=== PATIENT | male | born 1955 | race Two or more races ===

== ENCOUNTER 2023-03-17 18:07 | Inpatient (IN) | payer MEDICAID, OTHER ==
[~2023-03-17] VITALS: Ht 162.6 cm; Wt 76.0 kg
[2023-03-17 19:21] LABS: Eosinophils % (auto) 0.6 % (0.0-7.0); Lymphocytes # (auto) 0.6 10 ^3/uL (0.4-5.4)
[2023-03-17 19:23] LABS: Basophils # (auto) 0.1 10 ^3/uL (0-0.2); Basophils % (auto) 0.5 % (0.0-2.0); Eosinophils # (auto) 0.1 10 ^3/uL (0-0.8); Hemoglobin 8.5 g/dL (13.5-17.5); Lymphocytes % (auto) 2.3 % (10.0-50.0); Mean Corpuscular Hemoglobin 27.9 pg (28.0-32.0); Mean Corpuscular Hgb Conc. 31.3 g/dL (32.0-36.0); Mean Corpuscular Volume 89.2 fL (80.0-100.0); Monocytes # (auto) 1.6 10 ^3/uL (0-1.3); Monocytes % (auto) 6.6 % (0.0-12.0); Neutrophils # (auto) 21.9 10 ^3/uL (1.6-8.6); Red Blood Cells 3.03 10^6/uL (4.5-5.90); White Blood Cell 24.3 10^3/uL (4.4-10.8)
[2023-03-17 19:30] VITALS: PULSE 73; RESP 22; O2SAT 98
[2023-03-17 19:44] LABS: Alanine Aminotransferase 52 U/L (7-40); Albumin 2.9 g/dL (3.2-4.8); Alkaline Phosphatase 280 U/L (46-116); Anion Gap 7.9 (5-15); Aspartate Aminotransferase 28 U/L (13-40); Bilirubin, Total 0.5 mg/dL (0.2-1.0); Blood Urea Nitrogen 59 mg/dL (9-23); Calcium 7.9 mg/dL (8.7-10.4); Carbon Dioxide 24.1 mmol/L (20-30); Chloride 97 mmol/L (98-107); Glucose 278 mg/dL (74-106); Sodium 129 mmol/L (136-145); Total Protein 6.2 g/dL (5.7-8.2)
[2023-03-17 19:57] LABS: Potassium 5.8 mmol/L (3.5-5.1)
[2023-03-17] MEDS ORDERED: PIPERACILLIN-TAZOB 3.375GM 100 ML IV ONE (20:00)
[2023-03-17] MEDS ORDERED: VANCOMYCIN 1GM/250ML 250 ML IV ONE (20:00)
[2023-03-17] MEDS ORDERED: SODIUM CHLORIDE 0.9% 1,000 ML IV ONE (20:45)
[2023-03-17] MEDS ORDERED: DEXTROSE (50%) 50ML SYRG IV ONE (21:00)
[2023-03-17] MEDS ORDERED: InsuLIN REG 1unit/0.01ml Soln (100units/ml) IV ONE (21:00)
[2023-03-17 22:33] LABS: Urine Amorphous Crystal FEW /hpf (None Seen); Urine Bacteria MANY /hpf (None Seen); Urine Blood 1+ /uL (Negative); Urine Clarity CLOUDY (Clear); Urine Color Yellow (Yellow); Urine Mucus FEW (None Seen); Urine Protein, UAD 3+ (Negative); Urine Specific Gravity 1.019 (1.001-1.035); Urine Sperm PRESENT /hpf (None Seen); Urine Urobilinogen Normal (Negative); Urine WBC 107 /hpf (0 - 3); Urine pH 5.5 (5.0-8.0)
[2023-03-17 22:58] LABS: Erythrocyte Sedimentation Rate 116 mm/hr (0-20)
[2023-03-18] MEDS ORDERED: NITROGLYCERIN 0.4 MG SL TAB SL PRN (02:15)
[2023-03-18] MEDS ORDERED: MORPHINE SULFATE INJ 2 MG/ml SYRG IV PRN ×2 (02:15→16:00)
[2023-03-18] MEDS ORDERED: DEXTROSE (50%) 50ML SYRG IV PRN ×2 (02:15→16:00)
[2023-03-18 02:37] LABS: Chloride 98 mmol/L (98-107); Potassium 5.3 mmol/L (3.5-5.1); Sodium 128 mmol/L (136-145)
[2023-03-18 02:38] LABS: Anion Gap 6.3 (5-15); Carbon Dioxide 23.7 mmol/L (20-30)
[2023-03-18 02:39] LABS: Calcium 8.2 mg/dL (8.7-10.4)
[2023-03-18 02:43] LABS: Glucose 248 mg/dL (74-106)
[2023-03-18 02:44] LABS: BUN/Creatinine Ratio 8.9 (10.0-20.0)
[2023-03-18 02:46] LABS: Blood Urea Nitrogen 44 mg/dL (9-23)
[2023-03-18] MEDS: ACCU-CHEK COMFORT CURVE STRIP VI SCH ×4 (06:04→22:30)
[2023-03-18] MEDS: InsuLIN REG 1unit/0.01ml Soln (100units/ml) SC SCH ×4 (06:07→22:49)
[2023-03-18] MEDS: LEVOTHYROXINE SODIUM 50 MCG TAB PO SCH (06:07)
[2023-03-18 07:45] VITALS: PULSE 62; RESP 11; O2SAT 98
[2023-03-18] MEDS ORDERED: SODIUM CHL 0.9% 1000 ML BAG XX ONE (08:15)
[2023-03-18 09:56] LABS: INR 1.24 (0.9-1.15); Prothrombin Time 12.8 sec (9.3-11.8)
[2023-03-18 09:58] LABS: Partial Thromboplastin Time > 139.0 SEC (24.5-34.5)
[2023-03-18] MEDS: CARVEDILOL 3.125 MG TAB PO SCH ×2 (10:00→22:00)
[2023-03-18] MEDS: CLOPIDOGREL BISULFATE 75 MG TAB PO SCH (10:00)
[2023-03-18] MEDS: PANTOPRAZOLE 40 MG TAB PO SCH (10:00)
[2023-03-18] MEDS ORDERED: FUROSEMIDE 40 MG TAB PO SCH (10:00)
[2023-03-18] MEDS: cefTRIAXone 1GM/50ML D5W 50 ML IV SCH (10:05)
[2023-03-18 11:17] LABS: Hepatitis B Surface Antigen Negative (Negative)
[2023-03-18 11:38] LABS: Hepatitis A Ab IgM Negative
[2023-03-18 11:39] LABS: Hepatitis B Core IgM Negative; Hepatitis C Antibody Negative (Negative)
[2023-03-18 12:28] LABS: Basophils # (auto) 0.1 10 ^3/uL (0-0.2); Eosinophils # (auto) 0.3 10 ^3/uL (0-0.8); Lymphocytes # (auto) 0.8 10 ^3/uL (0.4-5.4)
[2023-03-18 12:31] LABS: Basophils % (auto) 0.5 % (0.0-2.0); Eosinophils % (auto) 1.4 % (0.0-7.0); Hematocrit 25.3 % (41.0-53.0); Hemoglobin 7.9 g/dL (13.5-17.5); Lymphocytes % (auto) 3.6 % (10.0-50.0); Mean Corpuscular Hemoglobin 27.8 pg (28.0-32.0); Mean Corpuscular Volume 89.5 fL (80.0-100.0); Monocytes # (auto) 1.5 10 ^3/uL (0-1.3); Neutrophils # (auto) 19.2 10 ^3/uL (1.6-8.6); Neutrophils % (auto) 87.5 % (37.0-80.0); Red Blood Cells 2.83 10^6/uL (4.5-5.90)
[2023-03-18 15:41] LABS: INR 1.19 (0.9-1.15); Partial Thromboplastin Time 35.7 SEC (24.5-34.5); Prothrombin Time 12.4 sec (9.3-11.8)
[2023-03-18] MEDS: DAPTOmycin 500 MG in SODIUM CHL 0.9% 50 ML IV SCH (16:48)
[2023-03-18] MEDS: ACETAMINOPHEN 325 MG TAB PO PRN (19:53)
[2023-03-18 19:56] VITALS: PULSE 78; RESP 15; O2SAT 94
[2023-03-18] MEDS ORDERED: EPOETIN ALFA-EPBX 10,000 UNIT/1ML VIAL SC ONE (21:00)
[2023-03-18] MEDS ORDERED: ATORVASTATIN 20 MG TAB PO SCH (22:00)
[2023-03-18] MEDS: ATORVASTATIN 20 MG TAB PO SCH (22:29)
[2023-03-18 23:12] LABS: Body Fluid White Blood Cells 5750 CUMM (0-200)
[2023-03-18 23:13] LABS: Body Fluid Polymorphonuclear 97 % (0-25); Body Fluid Red Blood Cells 1250 CUMM (0-2000)
[2023-03-19] MEDS ORDERED: ALBUMIN 5% 250 ML IV ONE (06:00)
[2023-03-19 06:12] LABS: Basophils # (auto) 0.1 10 ^3/uL (0-0.2); Basophils % (auto) 0.9 % (0.0-2.0); Eosinophils # (auto) 0.4 10 ^3/uL (0-0.8); Eosinophils % (auto) 2.4 % (0.0-7.0); Hematocrit 25.1 % (41.0-53.0); Hemoglobin 7.9 g/dL (13.5-17.5); Lymphocytes # (auto) 0.8 10 ^3/uL (0.4-5.4); Lymphocytes % (auto) 4.9 % (10.0-50.0); Mean Corpuscular Hemoglobin 28.2 pg (28.0-32.0); Mean Corpuscular Hgb Conc. 31.6 g/dL (32.0-36.0); Mean Corpuscular Volume 89.5 fL (80.0-100.0); Monocytes # (auto) 1.2 10 ^3/uL (0-1.3); Monocytes % (auto) 7.9 % (0.0-12.0); Neutrophils # (auto) 13.1 10 ^3/uL (1.6-8.6); Neutrophils % (auto) 83.9 % (37.0-80.0); Red Cell Distribution Width 17.2 % (11.8-14.3); White Blood Cell 15.6 10^3/uL (4.4-10.8)
[2023-03-19 06:25] LABS: INR 1.24 (0.9-1.15); Partial Thromboplastin Time 35.3 SEC (24.5-34.5); Prothrombin Time 12.8 sec (9.3-11.8)
[2023-03-19 06:31] LABS: Alanine Aminotransferase 60 U/L (7-40); Albumin 2.8 g/dL (3.2-4.8); Alkaline Phosphatase 286 U/L (46-116); Calcium 8.2 mg/dL (8.5-10.1); Chloride 101 mmol/L (98-107)
[2023-03-19 06:32] LABS: Anion Gap 5.8 (5-15); Aspartate Aminotransferase 53 U/L (13-40); BUN/Creatinine Ratio 8.3 (10.0-20.0); Bilirubin, Total 0.4 mg/dL (0.2-1.0); Carbon Dioxide 28.2 mmol/L (20-30); Magnesium 2.5 mg/dL (1.6-2.6); Potassium 4.3 mmol/L (3.5-5.1); Total Protein 6.3 g/dL (5.7-8.2)
[2023-03-19 06:42] LABS: Blood Urea Nitrogen 29 mg/dL (9-23); Glucose 113 mg/dL (74-106); Sodium 135 mmol/L (136-145)
[2023-03-19] MEDS: LEVOTHYROXINE SODIUM 50 MCG TAB PO SCH (06:51)
[2023-03-19] MEDS: ACCU-CHEK COMFORT CURVE STRIP VI SCH ×4 (06:52→22:53)
[2023-03-19] MEDS: InsuLIN REG 1unit/0.01ml Soln (100units/ml) SC SCH ×4 (06:52→23:00)
[2023-03-19 07:35] VITALS: PULSE 72; RESP 18; O2SAT 95
[2023-03-19] MEDS: ACETAMINOPHEN 325 MG TAB PO PRN (07:58)
[2023-03-19 09:34] LABS: % Iron Saturation 15.3 % (20-55)
[2023-03-19] MEDS: CARVEDILOL 3.125 MG TAB PO SCH ×2 (10:00→11:20)
[2023-03-19] MEDS: PANTOPRAZOLE 40 MG TAB PO SCH (11:14)
[2023-03-19] MEDS: cefTRIAXone 1GM/50ML D5W 50 ML IV SCH (11:14)
[2023-03-19] MEDS: CLOPIDOGREL BISULFATE 75 MG TAB PO SCH (11:20)
[2023-03-19] MEDS ORDERED: HYDROcodone-ACET 5/325MG TAB PO PRN (15:00)
[2023-03-19] MEDS ORDERED: SODIUM CHLORIDE 0.9% 250 ML IV ONE (15:00)
[2023-03-19] MEDS ORDERED: CALCIUM W/VIT D (600MG/400IU) TAB PO ONE (15:00)
[2023-03-19] MEDS: HYDROcodone-ACET 5/325MG TAB PO PRN (17:01)
[2023-03-19 19:37] VITALS: PULSE 74; RESP 14; O2SAT 94
[2023-03-19 22:00] VITALS: BP 131/56; PULSE 78; RESP 19; TEMP 98.9; O2SAT 93
[2023-03-19] MEDS: ATORVASTATIN 20 MG TAB PO SCH (22:53)
[2023-03-19 23:41] VITALS: BP 131/56; PULSE 71; PULSE 78; RESP 18; RESP 20; TEMP 98.8; O2SAT 92
[2023-03-20] VITALS (7 sets, daily range): BP systolic 101–147; BP diastolic 29–57; PULSE 70–87; RESP 16–19; TEMP 38.2; O2SAT 92–95
[2023-03-20] MEDS ORDERED: SITA25TA3 PO (00:33)
[2023-03-20] MEDS ORDERED: ATOR20TA50 PO (00:33)
[2023-03-20] MEDS ORDERED: GABA-1250 PO (00:33)
[2023-03-20] MEDS ORDERED: FURO40TA4 PO (00:33)
[2023-03-20] MEDS ORDERED: INSU100I52 SC (00:33)
[2023-03-20] MEDS ORDERED: CARV6.2551 PO (00:33)
[2023-03-20] MEDS ORDERED: INSU100S4 SC (00:33)
[2023-03-20] MEDS ORDERED: CLON0.1T PO (00:33)
[2023-03-20] MEDS ORDERED: LEVO50TA7 PO (00:33)
[2023-03-20] MEDS ORDERED: CLOP75TA70 PO (00:33)
[2023-03-20] MEDS ORDERED: OXY5T PO (00:33)
[2023-03-20] MEDS: LEVOTHYROXINE SODIUM 50 MCG TAB PO SCH (05:48)
[2023-03-20] MEDS: ACETAMINOPHEN 325 MG TAB PO PRN ×2 (05:48→22:21)
[2023-03-20] MEDS: ACCU-CHEK COMFORT CURVE STRIP VI SCH ×4 (05:48→22:55)
[2023-03-20] MEDS: InsuLIN REG 1unit/0.01ml Soln (100units/ml) SC SCH ×4 (06:13→22:55)
[2023-03-20 06:18] LABS: Alanine Aminotransferase 40 U/L (7-40); Alkaline Phosphatase 285 U/L (46-116); Anion Gap 6.3 (5-15); Aspartate Aminotransferase 22 U/L (13-40); BUN/Creatinine Ratio 8.5 (10.0-20.0); Blood Urea Nitrogen 32 mg/dL (9-23); Calcium 7.9 mg/dL (8.5-10.1); Carbon Dioxide 25.7 mmol/L (20-30); Chloride 101 mmol/L (98-107); LDL Cholesterol 28 mg/dL (< 100); Potassium 4.5 mmol/L (3.5-5.1); Sodium 133 mmol/L (136-145); Triglycerides 85 mg/dL (< 150)
[2023-03-20 06:19] LABS: Bilirubin, Total 0.4 mg/dL (0.2-1.0); Cholesterol 66 mg/dL (< 200); HDL Cholesterol 20 mg/dL (40-59); Total Protein 6.6 g/dL (5.7-8.2)
[2023-03-20 06:51] LABS: Glucose 223 mg/dL (74-106)
[2023-03-20 07:28] LABS: Basophils # (auto) 0.1 10 ^3/uL (0-0.2); Basophils % (auto) 0.6 % (0.0-2.0); Red Cell Distribution Width 17.7 % (11.8-14.3)
[2023-03-20 07:30] LABS: Eosinophils # (auto) 0.3 10 ^3/uL (0-0.8); Hematocrit 26.9 % (41.0-53.0); Hemoglobin 8.5 g/dL (13.5-17.5); Lymphocytes # (auto) 0.4 10 ^3/uL (0.4-5.4); Lymphocytes % (auto) 2.7 % (10.0-50.0); Mean Corpuscular Hemoglobin 28.3 pg (28.0-32.0); Mean Corpuscular Hgb Conc. 31.7 g/dL (32.0-36.0); Mean Corpuscular Volume 89.3 fL (80.0-100.0); Monocytes # (auto) 1.3 10 ^3/uL (0-1.3); Monocytes % (auto) 7.8 % (0.0-12.0); Neutrophils % (auto) 86.9 % (37.0-80.0); Red Blood Cells 3.02 10^6/uL (4.5-5.90); White Blood Cell 16.1 10^3/uL (4.4-10.8)
[2023-03-20] MEDS: CALCIUM W/VIT D (600MG/400IU) TAB PO SCH (08:57)
[2023-03-20] MEDS: cefTRIAXone 1GM/50ML D5W 50 ML IV SCH (08:57)
[2023-03-20] MEDS: CLOPIDOGREL BISULFATE 75 MG TAB PO SCH (08:57)
[2023-03-20] MEDS: INSULIN LANTUS (GLARGINE) 1 /0.01ml (100units/ml) SC SCH (09:12)
[2023-03-20] MEDS ORDERED: SODIUM CHL 0.9% 1000 ML BAG XX ONE (09:15)
[2023-03-20] MEDS: HYDROcodone-ACET 5/325MG TAB PO PRN (12:55)
[2023-03-20 13:06] LABS: Protein, Body Fluid 4.1 g/dL (.)
[2023-03-20] MEDS: DAPTOmycin 500 MG in SODIUM CHL 0.9% 50 ML IV SCH (14:43)
[2023-03-20] MEDS ORDERED: LINEZOLID 600MG/300ML 300 ML IV STA (18:33)
[2023-03-20] MEDS ORDERED: EPOETIN ALFA-EPBX 10,000 UNIT/1ML VIAL SC ONE (21:00)
[2023-03-20] MEDS: CARVEDILOL 3.125 MG TAB PO SCH (22:00)
[2023-03-20] MEDS: ATORVASTATIN 20 MG TAB PO SCH (22:22)
[2023-03-20] MEDS: LINEZOLID 600MG/300ML 300 ML IV SCH (22:40)
[2023-03-21 01:33] LABS: Rapid Influenza A Negative (Negative); Rapid Influenza B Negative (Negative)
[2023-03-21 01:34] LABS: COVID19 ANTIGEN SOFIA FIA NEGATIVE (NEGATIVE)
[2023-03-21 05:00] VITALS: BP 119/38; PULSE 74; RESP 12; TEMP 97.7; O2SAT 97
[2023-03-21] MEDS: LEVOTHYROXINE SODIUM 50 MCG TAB PO SCH (05:58)
[2023-03-21] MEDS: ACCU-CHEK COMFORT CURVE STRIP VI SCH ×4 (05:59→21:35)
[2023-03-21] MEDS: InsuLIN REG 1unit/0.01ml Soln (100units/ml) SC SCH ×4 (06:00→21:38)
[2023-03-21] MEDS: INSULIN LANTUS (GLARGINE) 1 /0.01ml (100units/ml) SC SCH (06:01)
[2023-03-21 06:47] LABS: Anion Gap 4.5 (5-15); Carbon Dioxide 28.5 mmol/L (20-30); Chloride 102 mmol/L (98-107); Potassium 4.1 mmol/L (3.5-5.1); Sodium 135 mmol/L (136-145)
[2023-03-21 06:49] LABS: Calcium 8.1 mg/dL (8.7-10.4)
[2023-03-21 06:54] LABS: Blood Urea Nitrogen 20 mg/dL (9-23); Glucose 142 mg/dL (74-106)
[2023-03-21 06:56] LABS: Basophils # (auto) 0.1 10 ^3/uL (0-0.2); Basophils % (auto) 0.4 % (0.0-2.0); Eosinophils # (auto) 0.2 10 ^3/uL (0-0.8); Eosinophils % (auto) 1.3 % (0.0-7.0); Hematocrit 28.3 % (41.0-53.0); Hemoglobin 8.9 g/dL (13.5-17.5); Lymphocytes # (auto) 0.6 10 ^3/uL (0.4-5.4); Lymphocytes % (auto) 3.3 % (10.0-50.0); Mean Corpuscular Hemoglobin 27.9 pg (28.0-32.0); Mean Corpuscular Hgb Conc. 31.3 g/dL (32.0-36.0); Mean Corpuscular Volume 89.2 fL (80.0-100.0); Monocytes # (auto) 1.4 10 ^3/uL (0-1.3); Monocytes % (auto) 8.4 % (0.0-12.0); Neutrophils # (auto) 14.7 10 ^3/uL (1.6-8.6); Neutrophils % (auto) 86.6 % (37.0-80.0); Red Blood Cells 3.18 10^6/uL (4.5-5.90); Red Cell Distribution Width 17.4 % (11.8-14.3)
[2023-03-21 08:00] VITALS: PULSE 81; PULSE 85; RESP 18
[2023-03-21 09:27] VITALS: BP 179/78; PULSE 85; RESP 20; TEMP 98.6; O2SAT 95
[2023-03-21] MEDS: LINEZOLID 600MG/300ML 300 ML IV SCH ×2 (09:37→17:55)
[2023-03-21] MEDS: CALCIUM W/VIT D (600MG/400IU) TAB PO SCH (09:37)
[2023-03-21] MEDS: CLOPIDOGREL BISULFATE 75 MG TAB PO SCH (09:37)
[2023-03-21] MEDS: CARVEDILOL 3.125 MG TAB PO SCH ×2 (09:38→21:35)
[2023-03-21] MEDS ORDERED: MEROPENEM 1 GM in SODIUM CHL 0.9% 100 ML IV SCH (10:00)
[2023-03-21] MEDS ORDERED: CARVEDILOL 3.125 MG TAB PO ONE (12:45)
[2023-03-21 20:00] VITALS: PULSE 88; PULSE 99; RESP 20; O2SAT 93
[2023-03-21] MEDS: ATORVASTATIN 20 MG TAB PO SCH (21:34)
[2023-03-21 22:00] VITALS: BP 107/41; PULSE 99; RESP 20; TEMP 98.8; O2SAT 93
[2023-03-22] VITALS (51 sets, daily range): BP systolic 86–155; BP diastolic 19–86; PULSE 76–87; RESP 16–20; TEMP 96.6–99; O2SAT 91–100
[2023-03-22] MEDS: LEVOTHYROXINE SODIUM 50 MCG TAB PO SCH (06:25)
[2023-03-22] MEDS: LINEZOLID 600MG/300ML 300 ML IV SCH ×2 (06:27→17:39)
[2023-03-22] MEDS: ACCU-CHEK COMFORT CURVE STRIP VI SCH ×3 (06:33→22:22)
[2023-03-22] MEDS: InsuLIN REG 1unit/0.01ml Soln (100units/ml) SC SCH ×4 (06:33→22:24)
[2023-03-22] MEDS: INSULIN LANTUS (GLARGINE) 1 /0.01ml (100units/ml) SC SCH (06:33)
[2023-03-22 06:47] LABS: Alanine Aminotransferase 23 U/L (7-40); Alkaline Phosphatase 212 U/L (46-116); Anion Gap 5.6 (5-15); Aspartate Aminotransferase 9 U/L (13-40); BUN/Creatinine Ratio 6.8 (10.0-20.0); Bilirubin, Total 0.5 mg/dL (0.2-1.0); Blood Urea Nitrogen 23 mg/dL (9-23); Calcium 8.2 mg/dL (8.7-10.4); Carbon Dioxide 28.4 mmol/L (20-30); Chloride 100 mmol/L (98-107); Glucose 119 mg/dL (74-106); Potassium 4.1 mmol/L (3.5-5.1); Sodium 134 mmol/L (136-145); Total Protein 6.7 g/dL (5.7-8.2)
[2023-03-22 06:57] LABS: Basophils # (auto) 0.1 10 ^3/uL (0-0.2); Eosinophils # (auto) 0.2 10 ^3/uL (0-0.8); Eosinophils % (auto) 0.8 % (0.0-7.0); Hemoglobin 8.4 g/dL (13.5-17.5); Lymphocytes # (auto) 0.7 10 ^3/uL (0.4-5.4); Mean Corpuscular Volume 89.3 fL (80.0-100.0); Monocytes # (auto) 1.5 10 ^3/uL (0-1.3); White Blood Cell 21.5 10^3/uL (4.4-10.8)
[2023-03-22 07:00] LABS: Basophils % (auto) 0.4 % (0.0-2.0); Hematocrit 26.5 % (41.0-53.0); Lymphocytes % (auto) 3.1 % (10.0-50.0); Mean Corpuscular Hemoglobin 28.4 pg (28.0-32.0); Mean Corpuscular Hgb Conc. 31.9 g/dL (32.0-36.0); Monocytes % (auto) 7.1 % (0.0-12.0); Neutrophils # (auto) 19.1 10 ^3/uL (1.6-8.6); Neutrophils % (auto) 88.6 % (37.0-80.0); Red Blood Cells 2.97 10^6/uL (4.5-5.90); Red Cell Distribution Width 17.6 % (11.8-14.3)
[2023-03-22 07:27] LABS: Magnesium 2.2 mg/dL (1.6-2.6)
[2023-03-22] MEDS ORDERED: MIDAZOLAM HCL 2MG/2ML 2ml VIAL (1mg/ml) ONE (08:55)
[2023-03-22] MEDS ORDERED: SODIUM CHLORIDE LOCK 10 ML ONE (08:55)
[2023-03-22] MEDS ORDERED: HYDROmorphone HCL 2 MG/ML VL/or syr ONE (08:55)
[2023-03-22] MEDS ORDERED: fentaNYL CITRATE 100 MCG/2 ML VL ONE (08:55)
[2023-03-22] MEDS ORDERED: ONDANSETRON HCL 4 MG/2 ML VIAL ONE (08:55)
[2023-03-22] MEDS ORDERED: ETOMIDATE (2MG/ML) 20ML VIAL IV ONE (08:55)
[2023-03-22] MEDS ORDERED: NEOSTIGMINE 1 MG/ML INJ (10mg/10ML VIAL) ONE (08:55)
[2023-03-22] MEDS ORDERED: GLYCOPYRROLATE 0.2 MG/ML 1ML VIAL ONE (08:55)
[2023-03-22] MEDS ORDERED: fentaNYL CITRATE 5 ML ONE (08:55)
[2023-03-22] MEDS ORDERED: ROCURONIUM 10MG/ML 10ML VIAL IV ONE (09:17)
[2023-03-22] MEDS: CALCIUM W/VIT D (600MG/400IU) TAB PO SCH (10:00)
[2023-03-22] MEDS: CARVEDILOL 3.125 MG TAB PO SCH ×2 (10:00→22:20)
[2023-03-22] MEDS: CLOPIDOGREL BISULFATE 75 MG TAB PO SCH (10:00)
[2023-03-22] MEDS ORDERED: LIDOCAINE 1%-Mpf/Epinephrine 1:200,000 30ml VIAL ONE (10:48)
[2023-03-22] MEDS ORDERED: BUPIVACAINE 0.25% INJ 50ML VIAL ONE (10:52)
[2023-03-22] MEDS ORDERED: EPINEPHrine HCL 1 MG/1 ML AMP ONE (10:52)
[2023-03-22] MEDS ORDERED: CALCIUM CHL(10%) 100MG/ML 10ML VIAL IV ONE (11:35)
[2023-03-22] MEDS ORDERED: MIDAZOLAM DRIP 50 mg/50mL 50 ML IV ONE (12:09)
[2023-03-22] MEDS ORDERED: fentaNYL Drip 2500mCg/250mlNS 250 ML IV ONE (12:09)
[2023-03-22] MEDS ORDERED: NOREPINEPHRINE 8 MG/250ML KIT 250 ML IV ONE (12:10)
[2023-03-22] MEDS: fentaNYL Drip 2500mCg/250mlNS 250 ML IV SCH (12:15)
[2023-03-22 13:04] LABS: Hemoglobin 8.7 g/dL (13.5-17.5); Mean Corpuscular Hemoglobin 27.4 pg (28.0-32.0); Mean Corpuscular Hgb Conc. 30.6 g/dL (32.0-36.0)
[2023-03-22 13:07] LABS: Hematocrit 28.4 % (41.0-53.0); Mean Corpuscular Volume 89.4 fL (80.0-100.0); Red Blood Cells 3.18 10^6/uL (4.5-5.90); Red Cell Distribution Width 17.3 % (11.8-14.3); White Blood Cell 25.7 10^3/uL (4.4-10.8)
[2023-03-22 13:13] LABS: INR 1.33 (0.9-1.15); Prothrombin Time 13.7 sec (9.3-11.8)
[2023-03-22] MEDS: MIDAZOLAM DRIP 50 mg/50mL 50 ML IV SCH (13:16)
[2023-03-22] MEDS ORDERED: SUCCINYLCHOLINE CHLORIDE 20 MG/ML 10ML VIAL IV ONE (13:18)
[2023-03-22 13:24] LABS: Basophils % (manual) 0 (0.0-2.0); Blast Cells 0; Myelocytes % 0; Promyelocytes % 0; Reactive Lymphocytes 0
[2023-03-22 13:27] LABS: Alanine Aminotransferase 22 U/L (7-40); Albumin 2.7 g/dL (3.2-4.8); Alkaline Phosphatase 190 U/L (46-116); Aspartate Aminotransferase 20 U/L (13-40); BUN/Creatinine Ratio 7.5 (10.0-20.0); Bilirubin, Total 0.5 mg/dL (0.2-1.0); Blood Urea Nitrogen 24 mg/dL (9-23); Chloride 100 mmol/L (98-107); Glucose 178 mg/dL (74-106); Potassium 4.1 mmol/L (3.5-5.1); Sodium 134 mmol/L (136-145)
[2023-03-22 13:28] LABS: Total Protein 6.3 g/dL (5.7-8.2)
[2023-03-22 14:05] LABS: Band Neutrophils % (manual) 6; Eosinophils % (manual) 2 (0-7); Lymphocytes % (manual) 6 (10.0-50.0); Metamyelocytes % 5; Monocytes % (manual) 4 (0-12); Platelet Estimate Adequate
[2023-03-22] MEDS ORDERED: LIDOCAINE 1% (LOCAL ANESTH.) PF 5ml SDV ID ONE (16:00)
[2023-03-22] MEDS ORDERED: PANTOPRAZOLE 40 MG/10 ML VIAL INJ IV ONE (16:15)
[2023-03-22] MEDS ORDERED: BUMETANIDE 2.5mg/10ml (0.25 mg/ml) INJ IV ONE (17:00)
[2023-03-22] MEDS: NOREPINEPHRINE 8 MG/250ML KIT 250 ML IV SCH (20:42)
[2023-03-22] MEDS: SODIUM CHLOR 0.9% PF (SALINE LOCK) 10ML VIAL/SYR IV SCH (22:18)
[2023-03-23] VITALS (111 sets, daily range): BP systolic 52–176; BP diastolic 15–80; PULSE 74–87; RESP 17–21; TEMP 98.8–99.9; O2SAT 96–100
[2023-03-23] MEDS: MIDAZOLAM DRIP 50 mg/50mL 50 ML IV SCH ×2 (03:29→19:04)
[2023-03-23 04:05] LABS: Hematocrit 27.4 % (41.0-53.0); Hemoglobin 8.5 g/dL (13.5-17.5); Mean Corpuscular Hemoglobin 27.6 pg (28.0-32.0); Mean Corpuscular Volume 88.8 fL (80.0-100.0); Red Blood Cells 3.08 10^6/uL (4.5-5.90); Red Cell Distribution Width 17.8 % (11.8-14.3)
[2023-03-23 04:07] LABS: Band Neutrophils % (manual) 0; Basophils % (manual) 0 (0.0-2.0); Blast Cells 0; Metamyelocytes % 0; Myelocytes % 0; Promyelocytes % 0; Reactive Lymphocytes 0
[2023-03-23 05:34] LABS: Alanine Aminotransferase 17 U/L (7-40); Albumin 2.6 g/dL (3.2-4.8); Alkaline Phosphatase 165 U/L (46-116); Anion Gap 8.5 (5-15); Aspartate Aminotransferase 18 U/L (13-40); BUN/Creatinine Ratio 7.8 (10.0-20.0); Bilirubin, Total 0.9 mg/dL (0.2-1.0); Blood Urea Nitrogen 27 mg/dL (9-23); Carbon Dioxide 24.5 mmol/L (20-30); Chloride 100 mmol/L (98-107); Glucose 122 mg/dL (74-106); Magnesium 1.9 mg/dL (1.6-2.6); Potassium 4.3 mmol/L (3.5-5.1); Sodium 133 mmol/L (136-145); Total Protein 6.1 g/dL (5.7-8.2)
[2023-03-23] MEDS: InsuLIN REG 1unit/0.01ml Soln (100units/ml) SC SCH ×4 (06:04→21:58)
[2023-03-23] MEDS: LINEZOLID 600MG/300ML 300 ML IV SCH ×2 (06:04→19:05)
[2023-03-23 08:26] LABS: Base Excess -0.5 mmol/L (-2.0-2.0)
[2023-03-23 08:50] LABS: Eosinophils % (manual) 5 (0-7); Lymphocytes % (manual) 4 (10.0-50.0); Monocytes % (manual) 5 (0-12)
[2023-03-23 08:52] LABS: Platelet Estimate Adequate
[2023-03-23] MEDS: PANTOPRAZOLE 40 MG/10 ML VIAL INJ IV SCH (09:41)
[2023-03-23] MEDS: BUMETANIDE 2.5mg/10ml (0.25 mg/ml) INJ IV SCH (09:43)
[2023-03-23] MEDS: SODIUM CHLOR 0.9% PF (SALINE LOCK) 10ML VIAL/SYR IV SCH ×2 (09:44→21:50)
[2023-03-23] MEDS ORDERED: LEVOTHYROXINE SODIUM 100 MCG/5 ML INJ IV ONE (12:00)
[2023-03-23] MEDS: fentaNYL Drip 2500mCg/250mlNS 250 ML IV SCH (12:19)
[2023-03-23] MEDS ORDERED: CEFEPIME 2GM/50ML NS 50 ML IV ONE (19:30)
[2023-03-23] MEDS: NOREPINEPHRINE 8 MG/250ML KIT 250 ML IV SCH (20:30)
[2023-03-24] VITALS (112 sets, daily range): BP systolic 94–173; BP diastolic 14–89; PULSE 76–93; RESP 12–20; TEMP 96.1–99.7; O2SAT 97–100
[2023-03-24 04:35] LABS: Hemoglobin 8.1 g/dL (13.5-17.5); Mean Corpuscular Hemoglobin 27.3 pg (28.0-32.0); Neutrophils # (auto) 14.5 10 ^3/uL (1.6-8.6); Red Blood Cells 2.98 10^6/uL (4.5-5.90)
[2023-03-24 04:37] LABS: Basophils # (auto) 0.1 10 ^3/uL (0-0.2); Basophils % (auto) 0.7 % (0.0-2.0); Eosinophils # (auto) 0.7 10 ^3/uL (0-0.8); Eosinophils % (auto) 4.2 % (0.0-7.0); Hematocrit 25.9 % (41.0-53.0); Lymphocytes % (auto) 5.7 % (10.0-50.0); Mean Corpuscular Hgb Conc. 31.4 g/dL (32.0-36.0); Mean Corpuscular Volume 86.9 fL (80.0-100.0); Monocytes # (auto) 1.3 10 ^3/uL (0-1.3); Monocytes % (auto) 7.5 % (0.0-12.0); Neutrophils % (auto) 81.9 % (37.0-80.0); Nucleated Red Blood Cells % 0.1 %; Red Cell Distribution Width 17.8 % (11.8-14.3); White Blood Cell 17.7 10^3/uL (4.4-10.8)
[2023-03-24 04:48] LABS: Alanine Aminotransferase 15 U/L (7-40); Alkaline Phosphatase 170 U/L (46-116); Anion Gap 7.7 (5-15); BUN/Creatinine Ratio 8.1 (10.0-20.0); Blood Urea Nitrogen 30 mg/dL (9-23); Calcium 7.8 mg/dL (8.7-10.4); Carbon Dioxide 24.3 mmol/L (20-30); Chloride 99 mmol/L (98-107); Glucose 153 mg/dL (74-106); Magnesium 1.9 mg/dL (1.6-2.6); Potassium 4.1 mmol/L (3.5-5.1); Sodium 131 mmol/L (136-145)
[2023-03-24 04:49] LABS: Albumin 2.6 g/dL (3.2-4.8); Aspartate Aminotransferase 16 U/L (13-40)
[2023-03-24 04:50] LABS: Bilirubin, Total 2.1 mg/dL (0.2-1.0); Total Protein 6.1 g/dL (5.7-8.2)
[2023-03-24] MEDS: LINEZOLID 600MG/300ML 300 ML IV SCH ×2 (06:40→18:23)
[2023-03-24] MEDS: InsuLIN REG 1unit/0.01ml Soln (100units/ml) SC SCH ×4 (06:45→21:52)
[2023-03-24] MEDS: NOREPINEPHRINE 8 MG/250ML KIT 250 ML IV SCH (07:33)
[2023-03-24 08:10] LABS: Base Excess -1.6 mmol/L (-2.0-2.0)
[2023-03-24] MEDS ORDERED: SODIUM CHL 0.9% 1000 ML BAG XX ONE (09:15)
[2023-03-24] MEDS: fentaNYL Drip 2500mCg/250mlNS 250 ML IV SCH (12:15)
[2023-03-24] MEDS: MIDAZOLAM DRIP 50 mg/50mL 50 ML IV SCH (13:17)
[2023-03-24] MEDS: LEVOTHYROXINE SODIUM 100 MCG/5 ML INJ IV SCH (13:26)
[2023-03-24] MEDS: PANTOPRAZOLE 40 MG/10 ML VIAL INJ IV SCH (13:26)
[2023-03-24] MEDS: SODIUM CHLOR 0.9% PF (SALINE LOCK) 10ML VIAL/SYR IV SCH ×2 (13:26→21:40)
[2023-03-24] MEDS: BUMETANIDE 2.5mg/10ml (0.25 mg/ml) INJ IV SCH (13:29)
[2023-03-24] MEDS: CEFEPIME 1GM/ 50ML 50 ML IV SCH (20:37)
[2023-03-24] MEDS ORDERED: EPOETIN ALFA-EPBX 10,000 UNIT/1ML VIAL SC ONE (21:00)
[2023-03-25] VITALS (105 sets, daily range): BP systolic 26–175; BP diastolic 13–47; PULSE 77–92; RESP 10–19; TEMP 98.1–99.5; O2SAT 94–100
[2023-03-25] MEDS: NOREPINEPHRINE 8 MG/250ML KIT 250 ML IV SCH ×2 (03:47→17:14)
[2023-03-25 03:59] LABS: Basophils # (auto) 0.1 10 ^3/uL (0-0.2); Eosinophils # (auto) 0.6 10 ^3/uL (0-0.8); Mean Corpuscular Volume 88.4 fL (80.0-100.0); Monocytes # (auto) 1.2 10 ^3/uL (0-1.3)
[2023-03-25 04:00] LABS: Eosinophils % (auto) 4.2 % (0.0-7.0); Hematocrit 25.4 % (41.0-53.0); Hemoglobin 7.8 g/dL (13.5-17.5); Lymphocytes # (auto) 0.9 10 ^3/uL (0.4-5.4); Mean Corpuscular Hemoglobin 27.3 pg (28.0-32.0); Mean Corpuscular Hgb Conc. 30.8 g/dL (32.0-36.0); Monocytes % (auto) 8.3 % (0.0-12.0); Neutrophils # (auto) 11.4 10 ^3/uL (1.6-8.6); Neutrophils % (auto) 80.5 % (37.0-80.0); Red Blood Cells 2.88 10^6/uL (4.5-5.90); Red Cell Distribution Width 17.9 % (11.8-14.3); White Blood Cell 14.2 10^3/uL (4.4-10.8)
[2023-03-25 04:18] LABS: Alanine Aminotransferase 12 U/L (7-40); Alkaline Phosphatase 155 U/L (46-116); Calcium 7.8 mg/dL (8.5-10.1); Chloride 100 mmol/L (98-107)
[2023-03-25 04:19] LABS: Albumin 2.7 g/dL (3.2-4.8); Anion Gap 7.9 (5-15); Aspartate Aminotransferase 18 U/L (13-40); BUN/Creatinine Ratio 6.8 (10.0-20.0); Bilirubin, Total 2.2 mg/dL (0.2-1.0); Blood Urea Nitrogen 21 mg/dL (9-23); Carbon Dioxide 25.1 mmol/L (20-30); Glucose 152 mg/dL (74-106); Magnesium 1.8 mg/dL (1.6-2.6); Potassium 4.4 mmol/L (3.5-5.1); Sodium 133 mmol/L (136-145); Total Protein 6.4 g/dL (5.7-8.2)
[2023-03-25] MEDS: LINEZOLID 600MG/300ML 300 ML IV SCH ×2 (05:31→17:19)
[2023-03-25] MEDS: InsuLIN REG 1unit/0.01ml Soln (100units/ml) SC SCH ×4 (07:22→21:50)
[2023-03-25 08:44] LABS: Base Excess -0.3 mmol/L (-2.0-2.0)
[2023-03-25] MEDS: PANTOPRAZOLE 40 MG/10 ML VIAL INJ IV SCH (09:33)
[2023-03-25] MEDS: BUMETANIDE 2.5mg/10ml (0.25 mg/ml) INJ IV SCH (09:34)
[2023-03-25] MEDS: LEVOTHYROXINE SODIUM 100 MCG/5 ML INJ IV SCH (09:35)
[2023-03-25] MEDS: SODIUM CHLOR 0.9% PF (SALINE LOCK) 10ML VIAL/SYR IV SCH ×2 (09:36→20:36)
[2023-03-25] MEDS: fentaNYL Drip 2500mCg/250mlNS 250 ML IV SCH (12:15)
[2023-03-25] MEDS: CEFEPIME 1GM/ 50ML 50 ML IV SCH (20:36)
[2023-03-26] VITALS (104 sets, daily range): BP systolic 102–194; BP diastolic 14–190; PULSE 75–91; RESP 10–19; TEMP 97.9–99; O2SAT 98–100
[2023-03-26 04:17] LABS: Basophils # (auto) 0.1 10 ^3/uL (0-0.2); Eosinophils # (auto) 0.5 10 ^3/uL (0-0.8); Hemoglobin 7.7 g/dL (13.5-17.5); Lymphocytes # (auto) 0.7 10 ^3/uL (0.4-5.4); Red Cell Distribution Width 17.6 % (11.8-14.3); White Blood Cell 13.5 10^3/uL (4.4-10.8)
[2023-03-26 04:19] LABS: Basophils % (auto) 0.8 % (0.0-2.0); Eosinophils % (auto) 3.8 % (0.0-7.0); Hematocrit 24.5 % (41.0-53.0); Lymphocytes % (auto) 5.1 % (10.0-50.0); Mean Corpuscular Hemoglobin 27.8 pg (28.0-32.0); Mean Corpuscular Hgb Conc. 31.5 g/dL (32.0-36.0); Mean Corpuscular Volume 88.1 fL (80.0-100.0); Monocytes % (auto) 7.2 % (0.0-12.0); Neutrophils # (auto) 11.2 10 ^3/uL (1.6-8.6); Neutrophils % (auto) 83.1 % (37.0-80.0); Red Blood Cells 2.78 10^6/uL (4.5-5.90)
[2023-03-26 04:37] LABS: Alanine Aminotransferase 12 U/L (7-40); Albumin 2.6 g/dL (3.2-4.8); Alkaline Phosphatase 164 U/L (46-116); Anion Gap 8.3 (5-15); Aspartate Aminotransferase 15 U/L (13-40); BUN/Creatinine Ratio 7.2 (10.0-20.0); Bilirubin, Total 2.1 mg/dL (0.2-1.0); Blood Urea Nitrogen 25 mg/dL (9-23); Carbon Dioxide 25.7 mmol/L (20-30); Chloride 97 mmol/L (98-107); Glucose 179 mg/dL (74-106); Magnesium 1.7 mg/dL (1.6-2.6); Potassium 4.3 mmol/L (3.5-5.1); Sodium 131 mmol/L (136-145); Total Protein 6.3 g/dL (5.7-8.2)
[2023-03-26] MEDS: LINEZOLID 600MG/300ML 300 ML IV SCH ×2 (05:57→17:16)
[2023-03-26] MEDS: InsuLIN REG 1unit/0.01ml Soln (100units/ml) SC SCH ×4 (06:07→21:16)
[2023-03-26 07:47] LABS: Base Excess 0.7 mmol/L (-2.0-2.0)
[2023-03-26] MEDS: NOREPINEPHRINE 8 MG/250ML KIT 250 ML IV SCH (08:57)
[2023-03-26] MEDS: PANTOPRAZOLE 40 MG/10 ML VIAL INJ IV SCH (09:50)
[2023-03-26] MEDS: BUMETANIDE 2.5mg/10ml (0.25 mg/ml) INJ IV SCH (09:50)
[2023-03-26] MEDS: LEVOTHYROXINE SODIUM 100 MCG/5 ML INJ IV SCH (09:51)
[2023-03-26] MEDS: SODIUM CHLOR 0.9% PF (SALINE LOCK) 10ML VIAL/SYR IV SCH ×2 (09:52→21:16)
[2023-03-26] MEDS: MIDAZOLAM DRIP 50 mg/50mL 50 ML IV SCH (12:15)
[2023-03-26] MEDS: fentaNYL Drip 2500mCg/250mlNS 250 ML IV SCH (12:15)
[2023-03-26] MEDS ORDERED: Nepro With Carb Steady 1 Liter Bottle GT SCH (17:30)
[2023-03-26] MEDS: CEFEPIME 1GM/ 50ML 50 ML IV SCH (21:16)
[2023-03-27] VITALS (101 sets, daily range): BP systolic 96–194; BP diastolic 13–81; PULSE 82–109; RESP 10–30; TEMP 96.3–98.8; O2SAT 93–100
[2023-03-27 04:15] LABS: Basophils # (auto) 0.1 10 ^3/uL (0-0.2); Mean Corpuscular Hemoglobin 28.4 pg (28.0-32.0); Monocytes # (auto) 0.7 10 ^3/uL (0-1.3); Neutrophils # (auto) 9.1 10 ^3/uL (1.6-8.6); White Blood Cell 10.8 10^3/uL (4.4-10.8)
[2023-03-27 04:19] LABS: Basophils % (auto) 0.6 % (0.0-2.0); Eosinophils # (auto) 0.3 10 ^3/uL (0-0.8); Eosinophils % (auto) 3.2 % (0.0-7.0); Hematocrit 24.2 % (41.0-53.0); Hemoglobin 7.8 g/dL (13.5-17.5); Lymphocytes # (auto) 0.6 10 ^3/uL (0.4-5.4); Lymphocytes % (auto) 5.7 % (10.0-50.0); Mean Corpuscular Hgb Conc. 32.3 g/dL (32.0-36.0); Mean Corpuscular Volume 87.7 fL (80.0-100.0); Monocytes % (auto) 6.3 % (0.0-12.0); Neutrophils % (auto) 84.2 % (37.0-80.0); Red Blood Cells 2.76 10^6/uL (4.5-5.90); Red Cell Distribution Width 17.4 % (11.8-14.3)
[2023-03-27 04:30] LABS: Alanine Aminotransferase 11 U/L (7-40); Albumin 2.6 g/dL (3.2-4.8); Alkaline Phosphatase 164 U/L (46-116); Anion Gap 5.3 (5-15); Aspartate Aminotransferase 17 U/L (13-40); BUN/Creatinine Ratio 7.2 (10.0-20.0); Bilirubin, Total 2.1 mg/dL (0.2-1.0); Blood Urea Nitrogen 25 mg/dL (9-23); Carbon Dioxide 26.7 mmol/L (20-30); Chloride 97 mmol/L (98-107); Glucose 154 mg/dL (74-106); Magnesium 1.6 mg/dL (1.6-2.6); Potassium 4.2 mmol/L (3.5-5.1); Sodium 129 mmol/L (136-145); Total Protein 6.4 g/dL (5.7-8.2)
[2023-03-27] MEDS: LINEZOLID 600MG/300ML 300 ML IV SCH ×2 (05:44→18:20)
[2023-03-27] MEDS: InsuLIN REG 1unit/0.01ml Soln (100units/ml) SC SCH ×4 (05:53→22:00)
[2023-03-27] MEDS ORDERED: SODIUM CHL 0.9% 1000 ML BAG XX ONE (07:00)
[2023-03-27 07:13] LABS: Base Excess 2.3 mmol/L (-2.0-2.0)
[2023-03-27] MEDS: DexmedeTOMIDine 200 MCG in D5W 5% 48 ML IV SCH ×2 (10:15→22:58)
[2023-03-27] MEDS: BUMETANIDE 2.5mg/10ml (0.25 mg/ml) INJ IV SCH ×2 (12:05→18:29)
[2023-03-27] MEDS: PANTOPRAZOLE 40 MG/10 ML VIAL INJ IV SCH (12:05)
[2023-03-27] MEDS: LEVOTHYROXINE SODIUM 100 MCG/5 ML INJ IV SCH (12:05)
[2023-03-27] MEDS: SODIUM CHLOR 0.9% PF (SALINE LOCK) 10ML VIAL/SYR IV SCH ×2 (12:05→22:00)
[2023-03-27 12:11] LABS: Base Excess 2.2 mmol/L (-2.0-2.0)
[2023-03-27] MEDS: fentaNYL Drip 2500mCg/250mlNS 250 ML IV SCH (12:15)
[2023-03-27] MEDS: MIDAZOLAM DRIP 50 mg/50mL 50 ML IV SCH (12:15)
[2023-03-27] MEDS ORDERED: EPINEPHrine HCL 250 ML IV SCH (14:30)
[2023-03-27] MEDS: NOREPINEPHRINE 8 MG/250ML KIT 250 ML IV SCH (20:30)
[2023-03-27] MEDS ORDERED: EPOETIN ALFA-EPBX 10,000 UNIT/1ML VIAL SC ONE (21:00)
[2023-03-27] MEDS: CEFEPIME 1GM/ 50ML 50 ML IV SCH (23:00)
[2023-03-27] MEDS: ONDANSETRON HCL 4 MG/2 ML VIAL IV PRN (23:13)
[2023-03-28] VITALS (39 sets, daily range): BP systolic 103–159; BP diastolic 19–92; PULSE 88–105; RESP 14–24; TEMP 96.4–99.1; O2SAT 94–99
[2023-03-28 04:35] LABS: Anion Gap 5.5 (5-15); Carbon Dioxide 29.5 mmol/L (20-30); Chloride 100 mmol/L (98-107); Potassium 3.8 mmol/L (3.5-5.1)
[2023-03-28 04:36] LABS: Calcium 8.1 mg/dL (8.7-10.4)
[2023-03-28 04:38] LABS: Basophils # (auto) 0.1 10 ^3/uL (0-0.2); Basophils % (auto) 0.6 % (0.0-2.0); Lymphocytes # (auto) 0.6 10 ^3/uL (0.4-5.4); Mean Corpuscular Hemoglobin 27.7 pg (28.0-32.0); Monocytes # (auto) 0.8 10 ^3/uL (0-1.3)
[2023-03-28 04:40] LABS: Eosinophils # (auto) 0.2 10 ^3/uL (0-0.8); Eosinophils % (auto) 1.4 % (0.0-7.0); Hematocrit 23.1 % (41.0-53.0); Hemoglobin 7.3 g/dL (13.5-17.5); Lymphocytes % (auto) 4.4 % (10.0-50.0); Mean Corpuscular Hgb Conc. 31.8 g/dL (32.0-36.0); Mean Corpuscular Volume 87.1 fL (80.0-100.0); Monocytes % (auto) 6.5 % (0.0-12.0); Neutrophils # (auto) 10.9 10 ^3/uL (1.6-8.6); Neutrophils % (auto) 87.1 % (37.0-80.0); Red Blood Cells 2.65 10^6/uL (4.5-5.90); Red Cell Distribution Width 17.3 % (11.8-14.3); White Blood Cell 12.5 10^3/uL (4.4-10.8)
[2023-03-28 04:41] LABS: BUN/Creatinine Ratio 5.8 (10.0-20.0); Blood Urea Nitrogen 12 mg/dL (9-23); Glucose 154 mg/dL (74-106)
[2023-03-28 04:42] LABS: Magnesium 1.6 mg/dL (1.6-2.6)
[2023-03-28 04:46] LABS: Sodium 135 mmol/L (136-145)
[2023-03-28] MEDS: LINEZOLID 600MG/300ML 300 ML IV SCH ×2 (05:53→17:16)
[2023-03-28] MEDS: InsuLIN REG 1unit/0.01ml Soln (100units/ml) SC SCH ×4 (05:53→22:00)
[2023-03-28] MEDS: SODIUM CHLOR 0.9% PF (SALINE LOCK) 10ML VIAL/SYR IV SCH ×2 (07:36→22:19)
[2023-03-28] MEDS: DexmedeTOMIDine 200 MCG in D5W 5% 48 ML IV SCH (07:37)
[2023-03-28] MEDS: MIDAZOLAM DRIP 50 mg/50mL 50 ML IV SCH (07:37)
[2023-03-28] MEDS: NOREPINEPHRINE 8 MG/250ML KIT 250 ML IV SCH (07:37)
[2023-03-28] MEDS: fentaNYL Drip 2500mCg/250mlNS 250 ML IV SCH (07:37)
[2023-03-28] MEDS: LEVOTHYROXINE SODIUM 100 MCG/5 ML INJ IV SCH (09:02)
[2023-03-28] MEDS: PANTOPRAZOLE 40 MG/10 ML VIAL INJ IV SCH (09:03)
[2023-03-28] MEDS: BUMETANIDE 2.5mg/10ml (0.25 mg/ml) INJ IV SCH (09:03)
[2023-03-28] MEDS: B-COMPLEX W/ C & FOLIC ACID(NEPHROVITE TAB) PO SCH (10:45)
[2023-03-28] MEDS: CALCIUM ACETATE 667 MG CAP PO SCH ×2 (11:20→16:29)
[2023-03-28] MEDS: CEFEPIME 1GM/ 50ML 50 ML IV SCH (20:53)
[2023-03-29] VITALS (31 sets, daily range): BP systolic 86–139; BP diastolic 10–70; PULSE 87–100; RESP 11–100; TEMP 97.5–98.5; O2SAT 95–100
[2023-03-29] MEDS: DexmedeTOMIDine 200 MCG in D5W 5% 48 ML IV SCH ×2 (00:24→10:37)
[2023-03-29 04:43] LABS: Basophils % (auto) 0.4 % (0.0-2.0); Hemoglobin 7.1 g/dL (13.5-17.5)
[2023-03-29 04:47] LABS: Basophils # (auto) 0.1 10 ^3/uL (0-0.2); Eosinophils # (auto) 0.2 10 ^3/uL (0-0.8); Eosinophils % (auto) 1.4 % (0.0-7.0); Hematocrit 23.1 % (41.0-53.0); Lymphocytes # (auto) 0.5 10 ^3/uL (0.4-5.4); Lymphocytes % (auto) 3.3 % (10.0-50.0); Mean Corpuscular Hemoglobin 27.1 pg (28.0-32.0); Mean Corpuscular Hgb Conc. 30.8 g/dL (32.0-36.0); Mean Corpuscular Volume 87.9 fL (80.0-100.0); Monocytes # (auto) 0.8 10 ^3/uL (0-1.3); Neutrophils # (auto) 12.4 10 ^3/uL (1.6-8.6); Neutrophils % (auto) 88.9 % (37.0-80.0); Red Blood Cells 2.62 10^6/uL (4.5-5.90); Red Cell Distribution Width 17.4 % (11.8-14.3)
[2023-03-29 04:58] LABS: Alanine Aminotransferase 14 U/L (7-40); Albumin 2.6 g/dL (3.2-4.8); Alkaline Phosphatase 157 U/L (46-116); Anion Gap 6.6 (5-15); Aspartate Aminotransferase 23 U/L (13-40); Blood Urea Nitrogen 14 mg/dL (9-23); Calcium 7.7 mg/dL (8.7-10.4); Carbon Dioxide 26.4 mmol/L (20-30); Chloride 101 mmol/L (98-107); Glucose 188 mg/dL (74-106); Magnesium 1.4 mg/dL (1.6-2.6); Potassium 3.8 mmol/L (3.5-5.1); Sodium 134 mmol/L (136-145)
[2023-03-29 04:59] LABS: Bilirubin, Total 1.8 mg/dL (0.2-1.0); Total Protein 6.5 g/dL (5.7-8.2)
[2023-03-29] MEDS: LINEZOLID 600MG/300ML 300 ML IV SCH ×2 (05:24→17:42)
[2023-03-29] MEDS: InsuLIN REG 1unit/0.01ml Soln (100units/ml) SC SCH ×4 (06:37→22:17)
[2023-03-29] MEDS ORDERED: SODIUM CHL 0.9% 1000 ML BAG XX ONE (07:00)
[2023-03-29] MEDS: CALCIUM ACETATE 667 MG CAP PO SCH ×3 (07:06→16:07)
[2023-03-29] MEDS: SODIUM CHLOR 0.9% PF (SALINE LOCK) 10ML VIAL/SYR IV SCH ×2 (07:06→22:14)
[2023-03-29] MEDS: LEVOTHYROXINE SODIUM 100 MCG/5 ML INJ IV SCH ×2 (07:06→07:42)
[2023-03-29] MEDS: B-COMPLEX W/ C & FOLIC ACID(NEPHROVITE TAB) PO SCH (07:06)
[2023-03-29] MEDS: BUMETANIDE 2.5mg/10ml (0.25 mg/ml) INJ IV SCH (07:41)
[2023-03-29] MEDS: PANTOPRAZOLE 40 MG/10 ML VIAL INJ IV SCH (07:42)
[2023-03-29] MEDS: fentaNYL Drip 2500mCg/250mlNS 250 ML IV SCH (10:36)
[2023-03-29] MEDS: MIDAZOLAM DRIP 50 mg/50mL 50 ML IV SCH (10:36)
[2023-03-29] MEDS ORDERED: HALOPERIDOL LACTATE 5 MG/ML INJ VIAL IM PRN (11:15)
[2023-03-29] MEDS: NOREPINEPHRINE 8 MG/250ML KIT 250 ML IV SCH (20:30)
[2023-03-29] MEDS ORDERED: EPOETIN ALFA-EPBX 10,000 UNIT/1ML VIAL SC ONE (21:00)
[2023-03-29] MEDS: CEFEPIME 1GM/ 50ML 50 ML IV SCH (21:11)
[2023-03-30] VITALS (33 sets, daily range): BP systolic 92–134; BP diastolic 12–62; PULSE 84–94; RESP 10–22; TEMP 90.1–99.7; O2SAT 96–100
[2023-03-30] MEDS: DexmedeTOMIDine 200 MCG in D5W 5% 48 ML IV SCH ×2 (01:50→14:24)
[2023-03-30 04:52] LABS: Anion Gap 5.6 (5-15); Carbon Dioxide 29.4 mmol/L (20-30); Chloride 100 mmol/L (98-107); Potassium 3.7 mmol/L (3.5-5.1); Sodium 135 mmol/L (136-145)
[2023-03-30 04:53] LABS: Basophils # (auto) 0.1 10 ^3/uL (0-0.2); Basophils % (auto) 0.5 % (0.0-2.0); Eosinophils # (auto) 0.2 10 ^3/uL (0-0.8); Lymphocytes # (auto) 0.8 10 ^3/uL (0.4-5.4); Nucleated Red Blood Cells % 0.1 %
[2023-03-30 04:54] LABS: Calcium 8.2 mg/dL (8.7-10.4); Eosinophils % (auto) 1.4 % (0.0-7.0); Hematocrit 23.9 % (41.0-53.0); Hemoglobin 7.5 g/dL (13.5-17.5); Lymphocytes % (auto) 6.3 % (10.0-50.0); Mean Corpuscular Hemoglobin 27.4 pg (28.0-32.0); Mean Corpuscular Hgb Conc. 31.3 g/dL (32.0-36.0); Mean Corpuscular Volume 87.5 fL (80.0-100.0); Monocytes # (auto) 0.9 10 ^3/uL (0-1.3); Monocytes % (auto) 6.6 % (0.0-12.0); Neutrophils # (auto) 11.1 10 ^3/uL (1.6-8.6); Neutrophils % (auto) 85.2 % (37.0-80.0); Red Blood Cells 2.73 10^6/uL (4.5-5.90); Red Cell Distribution Width 17.5 % (11.8-14.3); White Blood Cell 13.1 10^3/uL (4.4-10.8)
[2023-03-30 04:58] LABS: Glucose 139 mg/dL (74-106)
[2023-03-30 04:59] LABS: Blood Urea Nitrogen 12 mg/dL (9-23)
[2023-03-30] MEDS: LINEZOLID 600MG/300ML 300 ML IV SCH ×2 (05:46→18:32)
[2023-03-30] MEDS: InsuLIN REG 1unit/0.01ml Soln (100units/ml) SC SCH ×4 (06:35→22:21)
[2023-03-30] MEDS: PANTOPRAZOLE 40 MG/10 ML VIAL INJ IV SCH (08:19)
[2023-03-30] MEDS: B-COMPLEX W/ C & FOLIC ACID(NEPHROVITE TAB) PO SCH (08:19)
[2023-03-30] MEDS: CALCIUM ACETATE 667 MG CAP PO SCH ×3 (08:19→18:32)
[2023-03-30] MEDS: LEVOTHYROXINE SODIUM 100 MCG/5 ML INJ IV SCH (08:20)
[2023-03-30] MEDS: SODIUM CHLOR 0.9% PF (SALINE LOCK) 10ML VIAL/SYR IV SCH ×2 (08:20→22:17)
[2023-03-30] MEDS: BUMETANIDE 2.5mg/10ml (0.25 mg/ml) INJ IV SCH (08:20)
[2023-03-30] MEDS: MIDAZOLAM DRIP 50 mg/50mL 50 ML IV SCH (12:15)
[2023-03-30] MEDS: fentaNYL Drip 2500mCg/250mlNS 250 ML IV SCH (12:15)
[2023-03-30] MEDS ORDERED: LIDOCAINE 2% (LOCAL ANESTH.) PF 5ml SDV ONE (13:15)
[2023-03-30] MEDS: ONDANSETRON HCL 4 MG/2 ML VIAL IV PRN (18:32)
[2023-03-30] MEDS: CEFEPIME 1GM/ 50ML 50 ML IV SCH (21:58)
[2023-03-31] VITALS (9 sets, daily range): BP systolic 121–161; BP diastolic 36–57; PULSE 85–99; RESP 14–18; TEMP 97.9–98.9; O2SAT 92–98
[2023-03-31] MEDS: LINEZOLID 600MG/300ML 300 ML IV SCH ×2 (06:06→18:23)
[2023-03-31] MEDS: InsuLIN REG 1unit/0.01ml Soln (100units/ml) SC SCH ×4 (06:51→21:13)
[2023-03-31] MEDS: BUMETANIDE 2.5mg/10ml (0.25 mg/ml) INJ IV SCH (08:42)
[2023-03-31] MEDS: PANTOPRAZOLE 40 MG/10 ML VIAL INJ IV SCH (08:42)
[2023-03-31] MEDS: SODIUM CHLOR 0.9% PF (SALINE LOCK) 10ML VIAL/SYR IV SCH ×2 (08:42→21:13)
[2023-03-31] MEDS: CALCIUM ACETATE 667 MG CAP PO SCH ×3 (08:42→18:23)
[2023-03-31] MEDS: B-COMPLEX W/ C & FOLIC ACID(NEPHROVITE TAB) PO SCH (08:42)
[2023-03-31] MEDS: MORPHINE SULFATE INJ 2 MG/ml SYRG IV PRN ×2 (08:43→21:12)
[2023-03-31] MEDS: LEVOTHYROXINE SODIUM 100 MCG/5 ML INJ IV SCH (11:17)
[2023-03-31] MEDS: CEFEPIME 1GM/ 50ML 50 ML IV SCH (21:14)
[2023-04-01 05:00] VITALS: BP 113/44; PULSE 94; RESP 16; TEMP 98.3; O2SAT 95
[2023-04-01] MEDS: LINEZOLID 600MG/300ML 300 ML IV SCH ×2 (06:33→18:00)
[2023-04-01] MEDS: InsuLIN REG 1unit/0.01ml Soln (100units/ml) SC SCH ×4 (06:34→21:39)
[2023-04-01] MEDS ORDERED: SODIUM CHL 0.9% 1000 ML BAG XX ONE (07:00)
[2023-04-01 08:00] VITALS: PULSE 94
[2023-04-01 08:54] VITALS: BP 125/43; PULSE 95; RESP 16; TEMP 98.7; O2SAT 90
[2023-04-01] MEDS: BUMETANIDE 2.5mg/10ml (0.25 mg/ml) INJ IV SCH (08:55)
[2023-04-01] MEDS: B-COMPLEX W/ C & FOLIC ACID(NEPHROVITE TAB) PO SCH (08:56)
[2023-04-01] MEDS: CALCIUM ACETATE 667 MG CAP PO SCH ×4 (08:56→18:00)
[2023-04-01] MEDS: LEVOTHYROXINE SODIUM 100 MCG/5 ML INJ IV SCH (09:00)
[2023-04-01] MEDS: PANTOPRAZOLE 40 MG/10 ML VIAL INJ IV SCH (09:06)
[2023-04-01] MEDS: SODIUM CHLOR 0.9% PF (SALINE LOCK) 10ML VIAL/SYR IV SCH ×2 (09:06→21:39)
[2023-04-01] MEDS ORDERED: ALBUMIN 25% 50 ML IV STA (12:43)
[2023-04-01] MEDS: MAGNESIUM SULFATE 1GM/100ML 100 ML IV SCH ×2 (15:20→16:32)
[2023-04-01 16:41] VITALS: BP 114/40; PULSE 105; RESP 17; TEMP 98.7; O2SAT 90
[2023-04-01 20:00] VITALS: PULSE 104
[2023-04-01] MEDS ORDERED: EPOETIN ALFA-EPBX 4,000 UNIT/ML VIAL SC ONE (21:00)
[2023-04-01 21:43] VITALS: BP 149/39; PULSE 104; RESP 20; TEMP 99.2; O2SAT 92
[2023-04-02] VITALS (7 sets, daily range): BP systolic 104–148; BP diastolic 22–51; PULSE 78–97; RESP 16–18; TEMP 98–98.9; O2SAT 90–96
[2023-04-02] MEDS: LINEZOLID 600MG/300ML 300 ML IV SCH ×2 (06:43→17:53)
[2023-04-02] MEDS: MORPHINE SULFATE INJ 2 MG/ml SYRG IV PRN (06:44)
[2023-04-02] MEDS: InsuLIN REG 1unit/0.01ml Soln (100units/ml) SC SCH ×4 (06:44→21:20)
[2023-04-02 06:56] LABS: Calcium 8.4 mg/dL (8.5-10.1); Chloride 99 mmol/L (98-107); Potassium 3.2 mmol/L (3.5-5.1); Sodium 137 mmol/L (136-145)
[2023-04-02 06:57] LABS: Anion Gap 7.3 (5-15); Carbon Dioxide 30.7 mmol/L (20-30)
[2023-04-02 07:01] LABS: Basophils # (auto) 0.1 10 ^3/uL (0-0.2); Eosinophils # (auto) 0.2 10 ^3/uL (0-0.8); Lymphocytes # (auto) 0.8 10 ^3/uL (0.4-5.4); Monocytes # (auto) 0.9 10 ^3/uL (0-1.3); Neutrophils % (auto) 82.1 % (37.0-80.0); Nucleated Red Blood Cells % 0.1 %
[2023-04-02 07:02] LABS: BUN/Creatinine Ratio 5.6 (10.0-20.0); Blood Urea Nitrogen 14 mg/dL (9-23); Glucose 120 mg/dL (74-106)
[2023-04-02 07:05] LABS: Basophils % (auto) 0.6 % (0.0-2.0); Eosinophils % (auto) 1.7 % (0.0-7.0); Hematocrit 22.7 % (41.0-53.0); Hemoglobin 7.5 g/dL (13.5-17.5); Lymphocytes % (auto) 7.5 % (10.0-50.0); Mean Corpuscular Hemoglobin 28.4 pg (28.0-32.0); Mean Corpuscular Hgb Conc. 33.1 g/dL (32.0-36.0); Mean Corpuscular Volume 85.9 fL (80.0-100.0); Monocytes % (auto) 8.1 % (0.0-12.0); Neutrophils # (auto) 9.2 10 ^3/uL (1.6-8.6); Red Blood Cells 2.65 10^6/uL (4.5-5.90); Red Cell Distribution Width 17.4 % (11.8-14.3); White Blood Cell 11.2 10^3/uL (4.4-10.8)
[2023-04-02] MEDS: CALCIUM ACETATE 667 MG CAP PO SCH ×3 (08:07→17:53)
[2023-04-02] MEDS ORDERED: POTASSIUM CHL 20 Meq TABLET PO ONE (09:15)
[2023-04-02] MEDS: BUMETANIDE 2.5mg/10ml (0.25 mg/ml) INJ IV SCH (10:00)
[2023-04-02] MEDS: PANTOPRAZOLE 40 MG/10 ML VIAL INJ IV SCH (10:20)
[2023-04-02] MEDS: B-COMPLEX W/ C & FOLIC ACID(NEPHROVITE TAB) PO SCH (10:20)
[2023-04-02] MEDS: SODIUM CHLOR 0.9% PF (SALINE LOCK) 10ML VIAL/SYR IV SCH ×2 (10:27→21:17)
[2023-04-02] MEDS: LEVOTHYROXINE SODIUM 100 MCG/5 ML INJ IV SCH (10:27)
[2023-04-03] MEDS: LINEZOLID 600MG/300ML 300 ML IV SCH ×2 (05:15→16:15)
[2023-04-03 05:18] VITALS: BP 111/57; PULSE 97; RESP 18; TEMP 98.2; O2SAT 98
[2023-04-03] MEDS: InsuLIN REG 1unit/0.01ml Soln (100units/ml) SC SCH ×3 (06:07→16:15)
[2023-04-03 06:29] LABS: Calcium 8.5 mg/dL (8.7-10.4); Chloride 98 mmol/L (98-107); Potassium 3.5 mmol/L (3.5-5.1); Sodium 134 mmol/L (136-145)
[2023-04-03 06:30] LABS: Anion Gap 6.5 (5-15); Carbon Dioxide 29.5 mmol/L (20-30)
[2023-04-03 06:34] LABS: Basophils # (auto) 0.1 10 ^3/uL (0-0.2); Eosinophils # (auto) 0.2 10 ^3/uL (0-0.8); Hematocrit 23.5 % (41.0-53.0); Hemoglobin 7.4 g/dL (13.5-17.5); Lymphocytes # (auto) 0.9 10 ^3/uL (0.4-5.4); Mean Corpuscular Hemoglobin 27.3 pg (28.0-32.0); Mean Corpuscular Hgb Conc. 31.5 g/dL (32.0-36.0); Monocytes # (auto) 0.9 10 ^3/uL (0-1.3)
[2023-04-03 06:35] LABS: Glucose 119 mg/dL (74-106)
[2023-04-03 06:36] LABS: Basophils % (auto) 0.8 % (0.0-2.0); Eosinophils % (auto) 2.1 % (0.0-7.0); Lymphocytes % (auto) 8.1 % (10.0-50.0); Magnesium 1.9 mg/dL (1.6-2.6); Mean Corpuscular Volume 86.5 fL (80.0-100.0); Monocytes % (auto) 7.6 % (0.0-12.0); Neutrophils # (auto) 9.5 10 ^3/uL (1.6-8.6); Neutrophils % (auto) 81.4 % (37.0-80.0); Red Blood Cells 2.71 10^6/uL (4.5-5.90); Red Cell Distribution Width 17.7 % (11.8-14.3); White Blood Cell 11.7 10^3/uL (4.4-10.8)
[2023-04-03 07:11] LABS: Blood Urea Nitrogen 18 mg/dL (9-23)
[2023-04-03] MEDS: B-COMPLEX W/ C & FOLIC ACID(NEPHROVITE TAB) PO SCH (07:58)
[2023-04-03] MEDS: LEVOTHYROXINE SODIUM 100 MCG/5 ML INJ IV SCH (07:59)
[2023-04-03] MEDS: PANTOPRAZOLE 40 MG/10 ML VIAL INJ IV SCH (07:59)
[2023-04-03] MEDS: SODIUM CHLOR 0.9% PF (SALINE LOCK) 10ML VIAL/SYR IV SCH (07:59)
[2023-04-03 08:00] VITALS: PULSE 95
[2023-04-03] MEDS: CALCIUM ACETATE 667 MG CAP PO SCH ×3 (08:05→16:15)
[2023-04-03 09:00] VITALS: BP 148/49; PULSE 90; RESP 18; TEMP 98.4; O2SAT 99
[2023-04-03 12:30] VITALS: BP 103/72; PULSE 92; RESP 18; TEMP 97.4; O2SAT 99
[2023-04-03 16:52] VITALS: BP 155/73; PULSE 93; RESP 17; TEMP 98.7; O2SAT 98
[2023-04-03] MEDS ORDERED: EPOETIN ALFA-EPBX 4,000 UNIT/ML VIAL SC ONE (21:00)
[2023-04-12] MEDS ORDERED: LINEZOLID 600MG/300ML 300 ML IV SCH (22:00)
== END 2023-04-03 17:21 | disposition home health service (06) | DRG 710 ==
LOC: EDBD 18:07 → ER 18:07 → TELE 03-18 02:13 → TELE-EAST 03-19 22:20 → ICU WEST 03-22 11:42 → TELE-WESTW 03-31 02:50
PROVIDERS: ADMIT Internal Medicine Geriatric Medicine; ATTEND Internal Medicine Geriatric Medicine
PROC: 0W9B30Z Drainage of Left Pleural Cavity with Drainage Device, Percutaneous Approach (ICD-10-PCS; 2023-03-18)
PROC: 5A1955Z Respiratory Ventilation, Greater than 96 Consecutive Hours (ICD-10-PCS; 2023-03-22)
PROC: 5A12012 Performance of Cardiac Output, Single, Manual (ICD-10-PCS; 2023-03-22)
PROC: 02HV33Z Insertion of Infusion Device into Superior Vena Cava, Percutaneous Approach (ICD-10-PCS; 2023-03-22)
PROC: B548ZZA Ultrasonography of Superior Vena Cava, Guidance (ICD-10-PCS; 2023-03-22)
PROC: 0BH17EZ Insertion of Endotracheal Airway into Trachea, Via Natural or Artificial Opening (ICD-10-PCS; 2023-03-22)
PROC: 0W9B4ZZ Drainage of Left Pleural Cavity, Percutaneous Endoscopic Approach (ICD-10-PCS; 2023-03-22)
PROC: 0BNL0ZZ Release Left Lung, Open Approach (ICD-10-PCS; principal; 2023-03-22 09:45)
PROC: 0W9D00Z Drainage of Pericardial Cavity with Drainage Device, Open Approach (ICD-10-PCS; 2023-03-22 09:45)
DX: A41.1 Sepsis due to other specified staphylococcus (principal); J96.01 Acute respiratory failure with hypoxia; R65.21 Severe sepsis with septic shock; J86.9 Pyothorax without fistula; G93.41 Metabolic encephalopathy; E44.0 Moderate protein-calorie malnutrition; E87.1 Hypo-osmolality and hyponatremia; D63.1 Anemia in chronic kidney disease; I12.0 Hypertensive chronic kidney disease with stage 5 chronic kidney disease or end stage renal disease; E88.09 Other disorders of plasma-protein metabolism, not elsewhere classified; I46.9 Cardiac arrest, cause unspecified; Z20.822 Contact with and (suspected) exposure to COVID-19; J90 Pleural effusion, not elsewhere classified; N18.6 End stage renal disease; E87.5 Hyperkalemia; N39.0 Urinary tract infection, site not specified; E87.6 Hypokalemia; E11.69 Type 2 diabetes mellitus with other specified complication; E66.9 Obesity, unspecified; M46.24 Osteomyelitis of vertebra, thoracic region; E03.9 Hypothyroidism, unspecified; E11.22 Type 2 diabetes mellitus with diabetic chronic kidney disease; N25.0 Renal osteodystrophy; I25.10 Atherosclerotic heart disease of native coronary artery without angina pectoris; K59.00 Constipation, unspecified; L08.9 Local infection of the skin and subcutaneous tissue, unspecified; M46.44 Discitis, unspecified, thoracic region; Z99.81 Dependence on supplemental oxygen; Z71.3 Dietary counseling and surveillance; Z86.14 Personal history of Methicillin resistant Staphylococcus aureus infection; Z79.02 Long term (current) use of antithrombotics/antiplatelets; Z89.512 Acquired absence of left leg below knee; Z79.4 Long term (current) use of insulin; Z68.28 Body mass index [BMI] 28.0-28.9, adult
CPT/HCPCS: 36415; 36569; 36600; 70450; 71045; 71250; 72148; 76604; 76775; 76942; 78226; 80048; 80053; 80061; 80074; 81001; 82306; 82728; 82805; 82962; 83036; 83540; 83550; 83605; 83735; 83880; 83970; 84100; 84443; 84484; 85007; 85025; 85027; 85610; 85652; 85730; 86850; 86900; 86901; 87040; 87070; 87075; 87081; 87086; 87205; 87426; 87804; 89051; 90935; 92610; 93005; 93306; 94002; 94003; 94640; 96365; 96366; 96367; 96375; 96379; 97110; 97163; 97530; 99291; C9113; G0378; J0171; J0330; J0692; J0696; J1642; J1815; J2001; J2250; J2405; J2543; J3490; J7060

== ENCOUNTER 2023-04-09 18:07 | Inpatient (IN) | payer MEDICAID ==
[~2023-04-09] VITALS: Ht 162.6 cm; Wt 83.5 kg
[~2023-04-09 18:07] MED LIST: ATOR20TA50 PO; CARV6.2551 PO; CLON0.1T PO; CLOP75TA70 PO; FURO40TA4 PO; GABA-1250 PO; INSU100I52 SC; INSU100S4 SC; LEVO50TA7 PO; OXY5T PO; SITA25TA3 PO
[2023-04-09 19:30] VITALS: RESP 12; O2SAT 99
[2023-04-09 20:06] LABS: Basophils # (auto) 0.1 10 ^3/uL (0-0.2); Lymphocytes # (auto) 0.9 10 ^3/uL (0.4-5.4); White Blood Cell 13.1 10^3/uL (4.4-10.8)
[2023-04-09 20:08] LABS: Basophils % (auto) 0.4 % (0.0-2.0); Eosinophils # (auto) 0.2 10 ^3/uL (0-0.8); Eosinophils % (auto) 1.8 % (0.0-7.0); Hematocrit 21.3 % (41.0-53.0); Mean Corpuscular Hemoglobin 27.3 pg (28.0-32.0); Mean Corpuscular Hgb Conc. 32.1 g/dL (32.0-36.0); Mean Corpuscular Volume 85.1 fL (80.0-100.0); Monocytes # (auto) 0.9 10 ^3/uL (0-1.3); Neutrophils % (auto) 83.8 % (37.0-80.0); Nucleated Red Blood Cells % 0.2 %
[2023-04-09 20:14] LABS: Hemoglobin 6.8 g/dL (13.5-17.5)
[2023-04-09 20:20] LABS: Alanine Aminotransferase 25 U/L (7-40); Albumin 3.1 g/dL (3.2-4.8); Alkaline Phosphatase 258 U/L (46-116); Anion Gap 10 (5-15); Aspartate Aminotransferase 32 U/L (13-40); BUN/Creatinine Ratio 8.7 (10.0-20.0); Blood Urea Nitrogen 54 mg/dL (9-23); Calcium 7.4 mg/dL (8.7-10.4); Carbon Dioxide 26 mmol/L (20-30); Chloride 91 mmol/L (98-107); Glucose 128 mg/dL (74-106); Lactic Acid w/Reflex 3.4 mmol/L (0.4-2.0); Magnesium 2.1 mg/dL (1.6-2.6); Potassium 3.8 mmol/L (3.5-5.1)
[2023-04-09 20:21] LABS: Bilirubin, Total 0.7 mg/dL (0.2-1.0); Sodium 127 mmol/L (136-145); Total Protein 6.6 g/dL (5.7-8.2)
[2023-04-09] MEDS ORDERED: MORPHINE SULFATE INJ 2 MG/ml SYRG IV PRN (22:15)
[2023-04-09] MEDS ORDERED: NITROGLYCERIN 0.4 MG SL TAB SL PRN (22:15)
[2023-04-09] MEDS ORDERED: ONDANSETRON HCL 4 MG/2 ML VIAL IV PRN (22:15)
[2023-04-09] MEDS ORDERED: DEXTROSE (50%) 50ML SYRG IV PRN (22:15)
[2023-04-09 23:43] LABS: Hematocrit 20.6 % (41.0-53.0)
[2023-04-09 23:50] LABS: Hemoglobin 6.4 g/dL (13.5-17.5)
[2023-04-09 23:57] LABS: INR 1.26 (0.9-1.15); Partial Thromboplastin Time 36.5 SEC (24.5-34.5)
[2023-04-10] VITALS (14 sets, daily range): BP systolic 94–158; BP diastolic 17–44; PULSE 66–82; RESP 10–20; TEMP 97.6–98.5; O2SAT 96–100
[2023-04-10 03:37] LABS: Urine Bacteria FEW /hpf (None Seen); Urine Blood 1+ /uL (Negative); Urine Budding Yeast MODERATE /hpf (None Seen); Urine Clarity HAZY (Clear); Urine Color Yellow (Yellow); Urine Hyaline Cast FEW /lpf (0 - 2); Urine Protein, UAD 2+ (Negative); Urine Specific Gravity 1.009 (1.001-1.035); Urine Urobilinogen Normal (Negative); Urine WBC 87 /hpf (0 - 3); Urine pH 5.5 (5.0-8.0)
[2023-04-10 05:57] LABS: Basophils # (auto) 0 10 ^3/uL (0-0.2); Eosinophils # (auto) 0.2 10 ^3/uL (0-0.8); Eosinophils % (auto) 1.5 % (0.0-7.0); Lymphocytes # (auto) 0.7 10 ^3/uL (0.4-5.4); Nucleated Red Blood Cells % 0.1 %
[2023-04-10 05:58] LABS: Basophils % (auto) 0.2 % (0.0-2.0); Hemoglobin 8.2 g/dL (13.5-17.5); Lymphocytes % (auto) 4.7 % (10.0-50.0); Mean Corpuscular Hemoglobin 27.6 pg (28.0-32.0); Mean Corpuscular Hgb Conc. 32.7 g/dL (32.0-36.0); Mean Corpuscular Volume 84.5 fL (80.0-100.0); Monocytes # (auto) 0.5 10 ^3/uL (0-1.3); Monocytes % (auto) 3.4 % (0.0-12.0); Neutrophils # (auto) 12.7 10 ^3/uL (1.6-8.6); Neutrophils % (auto) 90.2 % (37.0-80.0); Red Blood Cells 2.96 10^6/uL (4.5-5.90); Red Cell Distribution Width 16.7 % (11.8-14.3); White Blood Cell 14.1 10^3/uL (4.4-10.8)
[2023-04-10 06:14] LABS: Alanine Aminotransferase 22 U/L (7-40); Alkaline Phosphatase 245 U/L (46-116); Anion Gap 10 (5-15); Aspartate Aminotransferase 26 U/L (13-40); BUN/Creatinine Ratio 8.9 (10.0-20.0); Blood Urea Nitrogen 54 mg/dL (9-23); Calcium 7.3 mg/dL (8.7-10.4); Carbon Dioxide 26 mmol/L (20-30); Chloride 92 mmol/L (98-107); Glucose 150 mg/dL (74-106); Potassium 3.9 mmol/L (3.5-5.1); Sodium 128 mmol/L (136-145)
[2023-04-10 06:15] LABS: Bilirubin, Total 0.9 mg/dL (0.2-1.0); Total Protein 6.5 g/dL (5.7-8.2)
[2023-04-10] MEDS: GABAPENTIN 300 MG CAP PO SCH ×3 (06:47→23:51)
[2023-04-10] MEDS: LEVOTHYROXINE SODIUM 50 MCG TAB PO SCH (06:47)
[2023-04-10] MEDS: InsuLIN REG 1unit/0.01ml Soln (100units/ml) SC SCH ×4 (06:48→22:00)
[2023-04-10] MEDS: ACCU-CHEK COMFORT CURVE STRIP VI SCH ×3 (06:49→23:59)
[2023-04-10] MEDS: oxyCODONE HCL 5MG TAB PO PRN (08:49)
[2023-04-10] MEDS: SITAGLIPTIN PHOSPHATE 25 MG PO SCH (10:00)
[2023-04-10] MEDS: CARVEDILOL 3.125 MG TAB PO SCH ×2 (10:00→22:00)
[2023-04-10] MEDS ORDERED: PANTOPRAZOLE 40 MG/10 ML VIAL INJ IV SCH (10:00)
[2023-04-10] MEDS: FUROSEMIDE 40 MG TAB PO SCH (10:00)
[2023-04-10] MEDS: cloNIDine HCL 0.1 MG TAB PO SCH ×2 (10:00→22:00)
[2023-04-10] MEDS: cefTRIAXone 1GM/50ML D5W 50 ML IV SCH (10:12)
[2023-04-10] MEDS: ATORVASTATIN 20 MG TAB PO SCH (10:13)
[2023-04-10] MEDS ORDERED: SODIUM CHL 0.9% 1000 ML BAG XX ONE (14:00)
[2023-04-10] MEDS ORDERED: EPOETIN ALFA-EPBX 10,000 UNIT/1ML VIAL SC ONE (21:00)
[2023-04-10] MEDS ORDERED: LORazepam 2MG/ML-1ML VIAL IV PRN ×2 (21:45)
[2023-04-10 22:31] LABS: % Iron Saturation 52.8 % (20-55)
[2023-04-11] VITALS (7 sets, daily range): BP systolic 106–174; BP diastolic 31–58; PULSE 71–94; RESP 17–19; TEMP 97.5–98.6; O2SAT 98–100
[2023-04-11] MEDS: ACCU-CHEK COMFORT CURVE STRIP VI SCH ×5 (00:02→22:00)
[2023-04-11] MEDS ORDERED: ALBUMIN 5% 250 ML IV ONE ×2 (01:30)
[2023-04-11 06:08] LABS: Basophils # (auto) 0 10 ^3/uL (0-0.2); Basophils % (auto) 0.3 % (0.0-2.0); Eosinophils # (auto) 0.3 10 ^3/uL (0-0.8); Hematocrit 26.1 % (41.0-53.0); Hemoglobin 8.6 g/dL (13.5-17.5); Lymphocytes # (auto) 0.6 10 ^3/uL (0.4-5.4); Lymphocytes % (auto) 5.6 % (10.0-50.0); Mean Corpuscular Hemoglobin 28.1 pg (28.0-32.0); Mean Corpuscular Hgb Conc. 33.2 g/dL (32.0-36.0); Mean Corpuscular Volume 84.6 fL (80.0-100.0); Monocytes # (auto) 0.6 10 ^3/uL (0-1.3); Neutrophils # (auto) 8.4 10 ^3/uL (1.6-8.6); Neutrophils % (auto) 85.1 % (37.0-80.0); Red Blood Cells 3.08 10^6/uL (4.5-5.90); Red Cell Distribution Width 16.4 % (11.8-14.3); White Blood Cell 9.9 10^3/uL (4.4-10.8)
[2023-04-11 06:11] LABS: Chloride 97 mmol/L (98-107); Potassium 3.6 mmol/L (3.5-5.1)
[2023-04-11 06:12] LABS: Anion Gap 7 (5-15); Calcium 7.9 mg/dL (8.7-10.4); Carbon Dioxide 29 mmol/L (20-30)
[2023-04-11 06:17] LABS: Glucose 100 mg/dL (74-106)
[2023-04-11 06:18] LABS: BUN/Creatinine Ratio 7.7 (10.0-20.0)
[2023-04-11 06:26] LABS: Blood Urea Nitrogen 33 mg/dL (9-23); Sodium 133 mmol/L (136-145)
[2023-04-11] MEDS: InsuLIN REG 1unit/0.01ml Soln (100units/ml) SC SCH ×4 (07:00→23:40)
[2023-04-11] MEDS: LEVOTHYROXINE SODIUM 50 MCG TAB PO SCH (07:41)
[2023-04-11] MEDS: GABAPENTIN 300 MG CAP PO SCH ×4 (07:41→22:00)
[2023-04-11] MEDS: cefTRIAXone 1GM/50ML D5W 50 ML IV SCH (09:34)
[2023-04-11] MEDS: FUROSEMIDE 40 MG TAB PO SCH (09:35)
[2023-04-11] MEDS: ATORVASTATIN 20 MG TAB PO SCH (09:35)
[2023-04-11] MEDS: CARVEDILOL 3.125 MG TAB PO SCH ×2 (09:36→22:00)
[2023-04-11] MEDS: cloNIDine HCL 0.1 MG TAB PO SCH (09:37)
[2023-04-11] MEDS: SITAGLIPTIN PHOSPHATE 25 MG PO SCH (10:00)
[2023-04-11 12:35] LABS: Hepatitis B Surface Antigen Negative (Negative)
[2023-04-11 12:46] LABS: Hepatitis A Ab IgM Negative
[2023-04-11 12:48] LABS: Hepatitis B Core IgM Negative; Hepatitis C Antibody Negative (Negative)
[2023-04-11] MEDS: oxyCODONE HCL 5MG TAB PO PRN (12:53)
[2023-04-12] VITALS (7 sets, daily range): BP systolic 100–173; BP diastolic 26–55; PULSE 70–81; RESP 16–20; TEMP 97.5–98.4; O2SAT 92–99
[2023-04-12] MEDS: GABAPENTIN 300 MG CAP PO SCH ×2 (06:00→17:25)
[2023-04-12 06:21] LABS: Anion Gap 6 (5-15); Carbon Dioxide 29 mmol/L (20-30); Chloride 99 mmol/L (98-107); Potassium 3.7 mmol/L (3.5-5.1); Sodium 134 mmol/L (136-145)
[2023-04-12 06:23] LABS: Calcium 8.1 mg/dL (8.7-10.4)
[2023-04-12 06:27] LABS: BUN/Creatinine Ratio 8.8 (10.0-20.0); Blood Urea Nitrogen 35 mg/dL (9-23); Glucose 106 mg/dL (74-106)
[2023-04-12] MEDS: ACCU-CHEK COMFORT CURVE STRIP VI SCH ×3 (06:30→17:24)
[2023-04-12] MEDS: InsuLIN REG 1unit/0.01ml Soln (100units/ml) SC SCH ×3 (06:47→17:00)
[2023-04-12] MEDS ORDERED: SODIUM CHL 0.9% 1000 ML BAG XX ONE (07:00)
[2023-04-12] MEDS: LEVOTHYROXINE SODIUM 50 MCG TAB PO SCH (07:00)
[2023-04-12 07:49] LABS: Basophils # (auto) 0 10 ^3/uL (0-0.2); Mean Corpuscular Volume 87.4 fL (80.0-100.0); Neutrophils # (auto) 7.1 10 ^3/uL (1.6-8.6); White Blood Cell 9.2 10^3/uL (4.4-10.8)
[2023-04-12 07:51] LABS: Basophils % (auto) 0.5 % (0.0-2.0); Eosinophils # (auto) 0.4 10 ^3/uL (0-0.8); Eosinophils % (auto) 3.9 % (0.0-7.0); Hematocrit 25.9 % (41.0-53.0); Hemoglobin 8.4 g/dL (13.5-17.5); Lymphocytes # (auto) 0.7 10 ^3/uL (0.4-5.4); Lymphocytes % (auto) 7.5 % (10.0-50.0); Mean Corpuscular Hemoglobin 28.3 pg (28.0-32.0); Mean Corpuscular Hgb Conc. 32.3 g/dL (32.0-36.0); Monocytes % (auto) 11.3 % (0.0-12.0); Neutrophils % (auto) 76.8 % (37.0-80.0); Red Blood Cells 2.96 10^6/uL (4.5-5.90); Red Cell Distribution Width 16.3 % (11.8-14.3)
[2023-04-12] MEDS ORDERED: IOHEXOL 350 MG/ML 100ML IJ ONE (08:57)
[2023-04-12] MEDS: cefTRIAXone 1GM/50ML D5W 50 ML IV SCH (09:03)
[2023-04-12] MEDS: cloNIDine HCL 0.1 MG TAB PO SCH ×2 (10:00→22:00)
[2023-04-12] MEDS: SITAGLIPTIN PHOSPHATE 25 MG PO SCH (10:00)
[2023-04-12] MEDS: ATORVASTATIN 20 MG TAB PO SCH (11:08)
[2023-04-12] MEDS: CARVEDILOL 3.125 MG TAB PO SCH (11:09)
[2023-04-12] MEDS: FUROSEMIDE 40 MG TAB PO SCH (11:10)
[2023-04-12] MEDS: oxyCODONE HCL 5MG TAB PO PRN (18:23)
[2023-04-13] MEDS: GABAPENTIN 300 MG CAP PO SCH ×4 (00:18→21:24)
[2023-04-13] MEDS: ACCU-CHEK COMFORT CURVE STRIP VI SCH ×5 (00:19→22:28)
[2023-04-13] MEDS: InsuLIN REG 1unit/0.01ml Soln (100units/ml) SC SCH ×5 (00:20→22:28)
[2023-04-13 05:00] VITALS: PULSE 72; RESP 12; TEMP 97.9; O2SAT 100
[2023-04-13 06:04] LABS: Basophils # (auto) 0.1 10 ^3/uL (0-0.2); Basophils % (auto) 0.7 % (0.0-2.0); Eosinophils # (auto) 0.2 10 ^3/uL (0-0.8); Hemoglobin 8.2 g/dL (13.5-17.5); Lymphocytes # (auto) 0.6 10 ^3/uL (0.4-5.4); Lymphocytes % (auto) 6.1 % (10.0-50.0); Nucleated Red Blood Cells % 0.1 %; White Blood Cell 9.4 10^3/uL (4.4-10.8)
[2023-04-13 06:06] LABS: Eosinophils % (auto) 2.3 % (0.0-7.0); Hematocrit 25.1 % (41.0-53.0); Mean Corpuscular Hgb Conc. 32.7 g/dL (32.0-36.0); Mean Corpuscular Volume 85.7 fL (80.0-100.0); Monocytes # (auto) 1.2 10 ^3/uL (0-1.3); Monocytes % (auto) 12.5 % (0.0-12.0); Neutrophils # (auto) 7.3 10 ^3/uL (1.6-8.6); Neutrophils % (auto) 78.4 % (37.0-80.0); Red Blood Cells 2.93 10^6/uL (4.5-5.90); Red Cell Distribution Width 16.6 % (11.8-14.3)
[2023-04-13 06:11] LABS: Anion Gap 6 (5-15); Carbon Dioxide 30 mmol/L (20-30); Chloride 100 mmol/L (98-107); Potassium 3.6 mmol/L (3.5-5.1); Sodium 136 mmol/L (136-145)
[2023-04-13 06:12] LABS: Calcium 8.1 mg/dL (8.7-10.4)
[2023-04-13 06:17] LABS: BUN/Creatinine Ratio 8.4 (10.0-20.0); Glucose 174 mg/dL (74-106)
[2023-04-13 06:19] LABS: Blood Urea Nitrogen 25 mg/dL (9-23)
[2023-04-13] MEDS: LEVOTHYROXINE SODIUM 50 MCG TAB PO SCH (06:25)
[2023-04-13 08:00] VITALS: BP 129/36; PULSE 71; PULSE 72; RESP 16; TEMP 98.3; O2SAT 99
[2023-04-13] MEDS: cefTRIAXone 1GM/50ML D5W 50 ML IV SCH (09:48)
[2023-04-13] MEDS: oxyCODONE HCL 5MG TAB PO PRN ×2 (09:48→17:05)
[2023-04-13] MEDS: cloNIDine HCL 0.1 MG TAB PO SCH ×2 (10:00→21:39)
[2023-04-13] MEDS: SITAGLIPTIN PHOSPHATE 25 MG PO SCH (10:00)
[2023-04-13] MEDS: ATORVASTATIN 20 MG TAB PO SCH (10:39)
[2023-04-13] MEDS: FUROSEMIDE 40 MG TAB PO SCH (10:39)
[2023-04-13] MEDS: amLODIPine BESYLATE 5 MG TAB PO SCH (10:40)
[2023-04-13 13:00] VITALS: BP 123/34; PULSE 71; RESP 16; TEMP 97.7; O2SAT 96
[2023-04-13 17:00] VITALS: BP 109/32; PULSE 79; RESP 18; TEMP 98.7; O2SAT 95
[2023-04-13 17:22] LABS: COVID19 ANTIGEN SOFIA FIA NEGATIVE (NEGATIVE)
[2023-04-13 20:00] VITALS: PULSE 74; PULSE 82; RESP 18; O2SAT 99
[2023-04-13] MEDS: LINEZOLID 600MG/300ML 300 ML IV SCH (21:23)
[2023-04-13 22:00] VITALS: BP 120/24; PULSE 84; RESP 18; TEMP 98; O2SAT 96
[2023-04-14] VITALS (7 sets, daily range): BP systolic 114–135; BP diastolic 32–41; PULSE 73–81; RESP 16–18; TEMP 97.3–98.7; O2SAT 92–96
[2023-04-14 06:18] LABS: Basophils # (auto) 0.1 10 ^3/uL (0-0.2); Eosinophils # (auto) 0.5 10 ^3/uL (0-0.8); Eosinophils % (auto) 5.1 % (0.0-7.0); Hematocrit 24.9 % (41.0-53.0); Hemoglobin 8.1 g/dL (13.5-17.5); Lymphocytes # (auto) 0.8 10 ^3/uL (0.4-5.4); Lymphocytes % (auto) 7.6 % (10.0-50.0); Mean Corpuscular Volume 85.8 fL (80.0-100.0); Monocytes # (auto) 1.5 10 ^3/uL (0-1.3); Monocytes % (auto) 14.3 % (0.0-12.0); Neutrophils # (auto) 7.8 10 ^3/uL (1.6-8.6); Nucleated Red Blood Cells % 0.1 %; White Blood Cell 10.8 10^3/uL (4.4-10.8)
[2023-04-14 06:19] LABS: Mean Corpuscular Hgb Conc. 32.6 g/dL (32.0-36.0); Red Cell Distribution Width 16.5 % (11.8-14.3)
[2023-04-14] MEDS: GABAPENTIN 300 MG CAP PO SCH ×3 (06:29→21:21)
[2023-04-14] MEDS: LEVOTHYROXINE SODIUM 50 MCG TAB PO SCH (06:30)
[2023-04-14] MEDS: InsuLIN REG 1unit/0.01ml Soln (100units/ml) SC SCH ×4 (06:36→21:28)
[2023-04-14] MEDS: ACCU-CHEK COMFORT CURVE STRIP VI SCH ×4 (06:37→21:27)
[2023-04-14 06:45] LABS: Calcium 8.2 mg/dL (8.7-10.4); Chloride 99 mmol/L (98-107); Potassium 3.7 mmol/L (3.5-5.1); Sodium 134 mmol/L (136-145)
[2023-04-14 06:46] LABS: Anion Gap 5 (5-15); Carbon Dioxide 30 mmol/L (20-30)
[2023-04-14 06:51] LABS: BUN/Creatinine Ratio 8.1 (10.0-20.0); Blood Urea Nitrogen 29 mg/dL (9-23); Glucose 170 mg/dL (74-106)
[2023-04-14] MEDS: cefTRIAXone 1GM/50ML D5W 50 ML IV SCH (09:01)
[2023-04-14] MEDS: cloNIDine HCL 0.1 MG TAB PO SCH ×2 (10:00→21:22)
[2023-04-14] MEDS: ATORVASTATIN 20 MG TAB PO SCH (10:11)
[2023-04-14] MEDS: FUROSEMIDE 40 MG TAB PO SCH (10:12)
[2023-04-14] MEDS: amLODIPine BESYLATE 5 MG TAB PO SCH (10:13)
[2023-04-14] MEDS: LINEZOLID 600MG/300ML 300 ML IV SCH ×2 (10:13→21:22)
[2023-04-14] MEDS: SITAGLIPTIN PHOSPHATE 25 MG PO SCH (10:13)
[2023-04-14] MEDS: oxyCODONE HCL 5MG TAB PO PRN (17:13)
[2023-04-15] VITALS (7 sets, daily range): BP systolic 105–157; BP diastolic 21–49; PULSE 64–72; RESP 15–17; TEMP 97.6–98.6; O2SAT 95–98
[2023-04-15] MEDS: GABAPENTIN 300 MG CAP PO SCH ×3 (06:06→21:44)
[2023-04-15] MEDS: InsuLIN REG 1unit/0.01ml Soln (100units/ml) SC SCH ×4 (06:07→21:49)
[2023-04-15] MEDS: LEVOTHYROXINE SODIUM 50 MCG TAB PO SCH (06:07)
[2023-04-15] MEDS: ACCU-CHEK COMFORT CURVE STRIP VI SCH ×4 (06:07→21:48)
[2023-04-15 06:41] LABS: Basophils # (auto) 0.1 10 ^3/uL (0-0.2); Basophils % (auto) 0.8 % (0.0-2.0); Eosinophils # (auto) 0.7 10 ^3/uL (0-0.8); Eosinophils % (auto) 6.1 % (0.0-7.0); Hematocrit 26.6 % (41.0-53.0); Hemoglobin 8.5 g/dL (13.5-17.5); Lymphocytes # (auto) 0.8 10 ^3/uL (0.4-5.4); Lymphocytes % (auto) 7.2 % (10.0-50.0); Mean Corpuscular Hemoglobin 27.8 pg (28.0-32.0); Mean Corpuscular Hgb Conc. 31.9 g/dL (32.0-36.0); Mean Corpuscular Volume 87.1 fL (80.0-100.0); Monocytes # (auto) 1.1 10 ^3/uL (0-1.3); Monocytes % (auto) 9.7 % (0.0-12.0); Neutrophils # (auto) 8.7 10 ^3/uL (1.6-8.6); Neutrophils % (auto) 76.2 % (37.0-80.0); Nucleated Red Blood Cells % 0.1 %; Red Blood Cells 3.06 10^6/uL (4.5-5.90); Red Cell Distribution Width 16.4 % (11.8-14.3); White Blood Cell 11.4 10^3/uL (4.4-10.8)
[2023-04-15 06:53] LABS: Anion Gap 6 (5-15); Carbon Dioxide 29 mmol/L (20-30); Chloride 95 mmol/L (98-107); Potassium 3.9 mmol/L (3.5-5.1); Sodium 130 mmol/L (136-145)
[2023-04-15 06:54] LABS: Calcium 8.3 mg/dL (8.7-10.4)
[2023-04-15 06:59] LABS: BUN/Creatinine Ratio 7.2 (10.0-20.0); Blood Urea Nitrogen 30 mg/dL (9-23); Glucose 138 mg/dL (74-106)
[2023-04-15] MEDS ORDERED: SODIUM CHL 0.9% 1000 ML BAG XX ONE (09:45)
[2023-04-15] MEDS: FUROSEMIDE 40 MG TAB PO SCH (09:58)
[2023-04-15] MEDS: cloNIDine HCL 0.1 MG TAB PO SCH ×2 (09:58→21:44)
[2023-04-15] MEDS: amLODIPine BESYLATE 5 MG TAB PO SCH (09:58)
[2023-04-15] MEDS: LINEZOLID 600MG/300ML 300 ML IV SCH ×2 (10:01→21:44)
[2023-04-15] MEDS: ATORVASTATIN 20 MG TAB PO SCH (10:08)
[2023-04-15] MEDS: SITAGLIPTIN PHOSPHATE 25 MG PO SCH (10:08)
[2023-04-15] MEDS ORDERED: EPOETIN ALFA-EPBX 10,000 UNIT/1ML VIAL SC ONE (21:00)
[2023-04-16] VITALS (8 sets, daily range): BP systolic 105–139; BP diastolic 29–103; PULSE 49–71; RESP 14–17; TEMP 97.9–98.5; O2SAT 97–99
[2023-04-16] MEDS: GABAPENTIN 300 MG CAP PO SCH ×3 (05:55→22:26)
[2023-04-16] MEDS: ACCU-CHEK COMFORT CURVE STRIP VI SCH ×4 (05:55→22:26)
[2023-04-16] MEDS: LEVOTHYROXINE SODIUM 50 MCG TAB PO SCH (05:55)
[2023-04-16] MEDS: InsuLIN REG 1unit/0.01ml Soln (100units/ml) SC SCH ×4 (05:56→22:26)
[2023-04-16 06:01] LABS: Chloride 94 mmol/L (98-107); Potassium 4.1 mmol/L (3.5-5.1); Sodium 127 mmol/L (136-145)
[2023-04-16 06:02] LABS: Anion Gap 5 (5-15); Calcium 8.2 mg/dL (8.7-10.4); Carbon Dioxide 28 mmol/L (20-30)
[2023-04-16 06:06] LABS: Basophils # (auto) 0.1 10 ^3/uL (0-0.2); Basophils % (auto) 0.9 % (0.0-2.0); Eosinophils # (auto) 0.6 10 ^3/uL (0-0.8); Eosinophils % (auto) 5.8 % (0.0-7.0); Hematocrit 24.1 % (41.0-53.0); Hemoglobin 8.1 g/dL (13.5-17.5); Lymphocytes # (auto) 0.9 10 ^3/uL (0.4-5.4); Lymphocytes % (auto) 8.7 % (10.0-50.0); Mean Corpuscular Hemoglobin 28.2 pg (28.0-32.0); Mean Corpuscular Hgb Conc. 33.5 g/dL (32.0-36.0); Mean Corpuscular Volume 84.3 fL (80.0-100.0); Neutrophils # (auto) 8.1 10 ^3/uL (1.6-8.6); Neutrophils % (auto) 75.6 % (37.0-80.0); Nucleated Red Blood Cells % 0.1 %; Red Blood Cells 2.86 10^6/uL (4.5-5.90); Red Cell Distribution Width 16.2 % (11.8-14.3); White Blood Cell 10.7 10^3/uL (4.4-10.8)
[2023-04-16 06:07] LABS: BUN/Creatinine Ratio 6.9 (10.0-20.0); Blood Urea Nitrogen 32 mg/dL (9-23); Glucose 144 mg/dL (74-106)
[2023-04-16] MEDS ORDERED: SODIUM CHL 0.9% 1000 ML BAG XX ONE (07:00)
[2023-04-16] MEDS ORDERED: CATHFLO ACTIVASE (ALTEPLASE) 2 MG VIAL IV ONE (10:00)
[2023-04-16] MEDS: amLODIPine BESYLATE 5 MG TAB PO SCH (10:42)
[2023-04-16] MEDS: FUROSEMIDE 40 MG TAB PO SCH (10:43)
[2023-04-16] MEDS: LINEZOLID 600MG/300ML 300 ML IV SCH ×2 (10:43→22:24)
[2023-04-16] MEDS: ATORVASTATIN 20 MG TAB PO SCH (10:44)
[2023-04-16] MEDS: cloNIDine HCL 0.1 MG TAB PO SCH ×2 (10:44→22:34)
[2023-04-16] MEDS: SITAGLIPTIN PHOSPHATE 25 MG PO SCH (10:58)
[2023-04-16] MEDS ORDERED: EPOETIN ALFA-EPBX 10,000 UNIT/1ML VIAL SC ONE (21:00)
[2023-04-17] VITALS (7 sets, daily range): BP systolic 99–111; BP diastolic 19–40; PULSE 65–73; RESP 16–20; TEMP 98.2–98.5; O2SAT 96–99
[2023-04-17] MEDS: LEVOTHYROXINE SODIUM 50 MCG TAB PO SCH (05:51)
[2023-04-17] MEDS: GABAPENTIN 300 MG CAP PO SCH ×3 (05:51→21:36)
[2023-04-17 06:10] LABS: Basophils # (auto) 0.1 10 ^3/uL (0-0.2); Basophils % (auto) 0.7 % (0.0-2.0); Eosinophils # (auto) 0.5 10 ^3/uL (0-0.8); Lymphocytes # (auto) 0.9 10 ^3/uL (0.4-5.4); Monocytes # (auto) 0.9 10 ^3/uL (0-1.3)
[2023-04-17 06:12] LABS: Chloride 99 mmol/L (98-107); Eosinophils % (auto) 4.9 % (0.0-7.0); Hematocrit 23.8 % (41.0-53.0); Hemoglobin 7.9 g/dL (13.5-17.5); Lymphocytes % (auto) 8.4 % (10.0-50.0); Mean Corpuscular Hemoglobin 28.3 pg (28.0-32.0); Mean Corpuscular Hgb Conc. 33.3 g/dL (32.0-36.0); Mean Corpuscular Volume 84.8 fL (80.0-100.0); Monocytes % (auto) 8.7 % (0.0-12.0); Neutrophils # (auto) 7.9 10 ^3/uL (1.6-8.6); Neutrophils % (auto) 77.3 % (37.0-80.0); Potassium 4.1 mmol/L (3.5-5.1); Red Blood Cells 2.81 10^6/uL (4.5-5.90); Red Cell Distribution Width 16.2 % (11.8-14.3); White Blood Cell 10.2 10^3/uL (4.4-10.8)
[2023-04-17 06:13] LABS: Anion Gap 5 (5-15); Calcium 8.1 mg/dL (8.5-10.1); Carbon Dioxide 29 mmol/L (20-30)
[2023-04-17 06:18] LABS: BUN/Creatinine Ratio 5.3 (10.0-20.0); Blood Urea Nitrogen 17 mg/dL (9-23); Glucose 140 mg/dL (74-106)
[2023-04-17 06:22] LABS: Sodium 133 mmol/L (136-145)
[2023-04-17] MEDS: ACCU-CHEK COMFORT CURVE STRIP VI SCH ×4 (06:40→21:49)
[2023-04-17] MEDS: InsuLIN REG 1unit/0.01ml Soln (100units/ml) SC SCH ×4 (06:41→21:49)
[2023-04-17] MEDS: oxyCODONE HCL 5MG TAB PO PRN ×2 (09:46→18:06)
[2023-04-17] MEDS: FUROSEMIDE 40 MG TAB PO SCH (09:46)
[2023-04-17] MEDS: SITAGLIPTIN PHOSPHATE 25 MG PO SCH (09:47)
[2023-04-17] MEDS: cloNIDine HCL 0.1 MG TAB PO SCH ×2 (09:50→21:36)
[2023-04-17] MEDS: amLODIPine BESYLATE 5 MG TAB PO SCH (09:51)
[2023-04-17] MEDS: LINEZOLID 600MG/300ML 300 ML IV SCH ×2 (10:28→21:35)
[2023-04-17] MEDS: ATORVASTATIN 20 MG TAB PO SCH (21:36)
[2023-04-18] VITALS (7 sets, daily range): BP systolic 116–146; BP diastolic 25–57; PULSE 69–81; RESP 17–18; TEMP 97.9–99.6; O2SAT 95–96
[2023-04-18] MEDS: GABAPENTIN 300 MG CAP PO SCH ×3 (05:46→22:34)
[2023-04-18 05:51] LABS: Basophils # (auto) 0.1 10 ^3/uL (0-0.2); Basophils % (auto) 0.8 % (0.0-2.0); Eosinophils # (auto) 0.7 10 ^3/uL (0-0.8); Eosinophils % (auto) 7.1 % (0.0-7.0); Hematocrit 24.3 % (41.0-53.0); Hemoglobin 8.1 g/dL (13.5-17.5); Lymphocytes # (auto) 1.1 10 ^3/uL (0.4-5.4); Lymphocytes % (auto) 10.8 % (10.0-50.0); Mean Corpuscular Hemoglobin 28.4 pg (28.0-32.0); Mean Corpuscular Hgb Conc. 33.2 g/dL (32.0-36.0); Mean Corpuscular Volume 85.5 fL (80.0-100.0); Monocytes # (auto) 0.8 10 ^3/uL (0-1.3); Monocytes % (auto) 7.4 % (0.0-12.0); Neutrophils # (auto) 7.7 10 ^3/uL (1.6-8.6); Neutrophils % (auto) 73.9 % (37.0-80.0); Red Blood Cells 2.84 10^6/uL (4.5-5.90); Red Cell Distribution Width 16.3 % (11.8-14.3); White Blood Cell 10.4 10^3/uL (4.4-10.8)
[2023-04-18 06:04] LABS: Anion Gap 4 (5-15); Carbon Dioxide 30 mmol/L (20-30); Chloride 96 mmol/L (98-107); Sodium 130 mmol/L (136-145)
[2023-04-18 06:06] LABS: Calcium 8.1 mg/dL (8.7-10.4)
[2023-04-18 06:10] LABS: BUN/Creatinine Ratio 5.9 (10.0-20.0); Blood Urea Nitrogen 21 mg/dL (9-23); Glucose 121 mg/dL (74-106)
[2023-04-18] MEDS: ACCU-CHEK COMFORT CURVE STRIP VI SCH ×4 (06:50→22:00)
[2023-04-18] MEDS: LEVOTHYROXINE SODIUM 50 MCG TAB PO SCH (06:50)
[2023-04-18] MEDS: InsuLIN REG 1unit/0.01ml Soln (100units/ml) SC SCH ×4 (06:52→22:51)
[2023-04-18] MEDS: SITAGLIPTIN PHOSPHATE 25 MG PO SCH (09:44)
[2023-04-18] MEDS: oxyCODONE HCL 5MG TAB PO PRN ×2 (09:45→18:54)
[2023-04-18] MEDS: cloNIDine HCL 0.1 MG TAB PO SCH ×2 (09:46→22:00)
[2023-04-18] MEDS: FUROSEMIDE 40 MG TAB PO SCH (09:46)
[2023-04-18] MEDS: amLODIPine BESYLATE 5 MG TAB PO SCH (09:46)
[2023-04-18] MEDS ORDERED: SODIUM CHL 0.9% 1000 ML BAG XX ONE (11:45)
[2023-04-18 13:25] LABS: Hepatitis B Surface Antibody Negative (Negative)
[2023-04-18 13:58] LABS: Hepatitis C Antibody Negative (Negative)
[2023-04-18] MEDS: LINEZOLID 600MG/300ML 300 ML IV SCH ×2 (14:00→22:33)
[2023-04-18 14:05] LABS: Hepatitis A Total Antibody Positive (Negative)
[2023-04-18] MEDS ORDERED: EPOETIN ALFA-EPBX 10,000 UNIT/1ML VIAL SC ONE (21:00)
[2023-04-18] MEDS: ATORVASTATIN 20 MG TAB PO SCH (22:34)
[2023-04-19] VITALS (7 sets, daily range): BP systolic 107–145; BP diastolic 25–59; PULSE 71–79; RESP 12–20; TEMP 97.5–99.4; O2SAT 93–97
[2023-04-19] MEDS: GABAPENTIN 300 MG CAP PO SCH ×3 (06:02→22:46)
[2023-04-19] MEDS: LEVOTHYROXINE SODIUM 50 MCG TAB PO SCH (06:02)
[2023-04-19] MEDS: InsuLIN REG 1unit/0.01ml Soln (100units/ml) SC SCH ×3 (06:12→17:30)
[2023-04-19] MEDS: ACCU-CHEK COMFORT CURVE STRIP VI SCH ×4 (06:13→22:00)
[2023-04-19 06:16] LABS: Anion Gap 4 (5-15); Carbon Dioxide 31 mmol/L (20-30); Chloride 98 mmol/L (98-107); Potassium 3.9 mmol/L (3.5-5.1); Sodium 133 mmol/L (136-145)
[2023-04-19 06:17] LABS: Calcium 8.3 mg/dL (8.5-10.1)
[2023-04-19 06:22] LABS: BUN/Creatinine Ratio 4.6 (10.0-20.0); Blood Urea Nitrogen 11 mg/dL (9-23); Glucose 111 mg/dL (74-106)
[2023-04-19 06:54] LABS: Basophils # (auto) 0.1 10 ^3/uL (0-0.2); Eosinophils # (auto) 0.5 10 ^3/uL (0-0.8); Eosinophils % (auto) 4.6 % (0.0-7.0); Hematocrit 26.2 % (41.0-53.0); Hemoglobin 8.6 g/dL (13.5-17.5); Lymphocytes # (auto) 0.8 10 ^3/uL (0.4-5.4); Lymphocytes % (auto) 8.1 % (10.0-50.0); Mean Corpuscular Hemoglobin 28.2 pg (28.0-32.0); Mean Corpuscular Hgb Conc. 32.8 g/dL (32.0-36.0); Mean Corpuscular Volume 85.9 fL (80.0-100.0); Monocytes # (auto) 0.7 10 ^3/uL (0-1.3); Monocytes % (auto) 7.1 % (0.0-12.0); Neutrophils # (auto) 8.2 10 ^3/uL (1.6-8.6); Neutrophils % (auto) 79.2 % (37.0-80.0); Red Blood Cells 3.06 10^6/uL (4.5-5.90); Red Cell Distribution Width 16.9 % (11.8-14.3); White Blood Cell 10.3 10^3/uL (4.4-10.8)
[2023-04-19] MEDS: FUROSEMIDE 40 MG TAB PO SCH (09:39)
[2023-04-19] MEDS: amLODIPine BESYLATE 5 MG TAB PO SCH (09:40)
[2023-04-19] MEDS: cloNIDine HCL 0.1 MG TAB PO SCH ×2 (09:41→22:00)
[2023-04-19] MEDS: oxyCODONE HCL 5MG TAB PO PRN ×2 (09:41→22:46)
[2023-04-19] MEDS: LINEZOLID 600MG/300ML 300 ML IV SCH ×2 (09:44→22:46)
[2023-04-19] MEDS: SITAGLIPTIN PHOSPHATE 25 MG PO SCH (09:57)
[2023-04-19] MEDS: ATORVASTATIN 20 MG TAB PO SCH (22:46)
[2023-04-20] VITALS (7 sets, daily range): BP systolic 122–140; BP diastolic 30–48; PULSE 71–83; RESP 12–19; TEMP 97.6–98.5; O2SAT 94–96
[2023-04-20] MEDS: InsuLIN REG 1unit/0.01ml Soln (100units/ml) SC SCH ×5 (00:41→22:53)
[2023-04-20 05:45] LABS: Basophils # (auto) 0.1 10 ^3/uL (0-0.2); Basophils % (auto) 0.9 % (0.0-2.0); Eosinophils # (auto) 0.5 10 ^3/uL (0-0.8); Eosinophils % (auto) 5.7 % (0.0-7.0); Hematocrit 26.2 % (41.0-53.0); Hemoglobin 8.5 g/dL (13.5-17.5); Lymphocytes # (auto) 0.8 10 ^3/uL (0.4-5.4); Mean Corpuscular Hemoglobin 27.8 pg (28.0-32.0); Mean Corpuscular Hgb Conc. 32.3 g/dL (32.0-36.0); Monocytes # (auto) 0.6 10 ^3/uL (0-1.3); Monocytes % (auto) 7.4 % (0.0-12.0); Neutrophils # (auto) 6.7 10 ^3/uL (1.6-8.6); Red Blood Cells 3.04 10^6/uL (4.5-5.90); Red Cell Distribution Width 16.7 % (11.8-14.3); White Blood Cell 8.7 10^3/uL (4.4-10.8)
[2023-04-20 06:05] LABS: Anion Gap 7 (5-15); Carbon Dioxide 28 mmol/L (20-30); Chloride 95 mmol/L (98-107); Sodium 130 mmol/L (136-145)
[2023-04-20 06:06] LABS: Calcium 8.1 mg/dL (8.7-10.4)
[2023-04-20 06:11] LABS: BUN/Creatinine Ratio 4.7 (10.0-20.0); Blood Urea Nitrogen 13 mg/dL (9-23); Glucose 92 mg/dL (74-106)
[2023-04-20] MEDS: LEVOTHYROXINE SODIUM 50 MCG TAB PO SCH (06:27)
[2023-04-20] MEDS: ACCU-CHEK COMFORT CURVE STRIP VI SCH ×4 (06:27→22:00)
[2023-04-20] MEDS: GABAPENTIN 300 MG CAP PO SCH ×3 (06:27→22:53)
[2023-04-20] MEDS: oxyCODONE HCL 5MG TAB PO PRN (06:29)
[2023-04-20] MEDS: amLODIPine BESYLATE 5 MG TAB PO SCH (10:00)
[2023-04-20] MEDS: cloNIDine HCL 0.1 MG TAB PO SCH ×2 (10:00→23:01)
[2023-04-20] MEDS: LINEZOLID 600MG/300ML 300 ML IV SCH ×2 (10:09→22:54)
[2023-04-20] MEDS: FUROSEMIDE 40 MG TAB PO SCH (10:09)
[2023-04-20] MEDS: SITAGLIPTIN PHOSPHATE 25 MG PO SCH (10:10)
[2023-04-20] MEDS: ATORVASTATIN 20 MG TAB PO SCH (22:53)
[2023-04-21] VITALS (9 sets, daily range): BP systolic 107–148; BP diastolic 17–71; PULSE 73–83; RESP 16–20; TEMP 97.6–98.5; O2SAT 94–98
[2023-04-21] MEDS: ACCU-CHEK COMFORT CURVE STRIP VI SCH ×4 (05:30→22:54)
[2023-04-21 06:18] LABS: Basophils # (auto) 0.1 10 ^3/uL (0-0.2); Basophils % (auto) 0.7 % (0.0-2.0); Eosinophils # (auto) 0.5 10 ^3/uL (0-0.8); Eosinophils % (auto) 5.3 % (0.0-7.0); Hematocrit 26.7 % (41.0-53.0); Hemoglobin 8.7 g/dL (13.5-17.5); Lymphocytes # (auto) 0.8 10 ^3/uL (0.4-5.4); Lymphocytes % (auto) 8.6 % (10.0-50.0); Mean Corpuscular Hemoglobin 27.8 pg (28.0-32.0); Mean Corpuscular Hgb Conc. 32.7 g/dL (32.0-36.0); Mean Corpuscular Volume 85.1 fL (80.0-100.0); Monocytes # (auto) 0.4 10 ^3/uL (0-1.3); Monocytes % (auto) 4.8 % (0.0-12.0); Neutrophils # (auto) 7.1 10 ^3/uL (1.6-8.6); Neutrophils % (auto) 80.6 % (37.0-80.0); Red Blood Cells 3.14 10^6/uL (4.5-5.90); Red Cell Distribution Width 17.4 % (11.8-14.3); White Blood Cell 8.8 10^3/uL (4.4-10.8)
[2023-04-21 06:30] LABS: Anion Gap 6 (5-15); Carbon Dioxide 29 mmol/L (20-30); Chloride 94 mmol/L (98-107); Potassium 4.3 mmol/L (3.5-5.1); Sodium 129 mmol/L (136-145)
[2023-04-21 06:32] LABS: Calcium 8.1 mg/dL (8.7-10.4)
[2023-04-21 06:36] LABS: Glucose 121 mg/dL (74-106)
[2023-04-21 06:37] LABS: Blood Urea Nitrogen 15 mg/dL (9-23)
[2023-04-21] MEDS: InsuLIN REG 1unit/0.01ml Soln (100units/ml) SC SCH ×4 (07:00→22:59)
[2023-04-21] MEDS: LEVOTHYROXINE SODIUM 50 MCG TAB PO SCH (07:11)
[2023-04-21] MEDS: GABAPENTIN 300 MG CAP PO SCH ×3 (07:11→22:54)
[2023-04-21] MEDS: oxyCODONE HCL 5MG TAB PO PRN ×3 (07:18→23:03)
[2023-04-21] MEDS: LINEZOLID 600MG/300ML 300 ML IV SCH ×2 (09:43→22:54)
[2023-04-21] MEDS: amLODIPine BESYLATE 5 MG TAB PO SCH (09:47)
[2023-04-21] MEDS: cloNIDine HCL 0.1 MG TAB PO SCH ×2 (09:48→22:00)
[2023-04-21] MEDS: FUROSEMIDE 40 MG TAB PO SCH (10:06)
[2023-04-21] MEDS: SITAGLIPTIN PHOSPHATE 25 MG PO SCH (10:07)
[2023-04-21] MEDS: ATORVASTATIN 20 MG TAB PO SCH (22:54)
[2023-04-22] VITALS (7 sets, daily range): BP systolic 112–133; BP diastolic 32–38; PULSE 75–88; RESP 17–20; TEMP 98.2–99.4; O2SAT 95–97
[2023-04-22] MEDS ORDERED: cloNIDine HCL 0.1 MG TAB PO PRN (04:00)
[2023-04-22 05:51] LABS: Basophils # (auto) 0.1 10 ^3/uL (0-0.2); Basophils % (auto) 1.1 % (0.0-2.0); Eosinophils # (auto) 0.4 10 ^3/uL (0-0.8); Eosinophils % (auto) 5.4 % (0.0-7.0); Hematocrit 25.9 % (41.0-53.0); Hemoglobin 8.6 g/dL (13.5-17.5); Lymphocytes # (auto) 0.8 10 ^3/uL (0.4-5.4); Lymphocytes % (auto) 10.7 % (10.0-50.0); Mean Corpuscular Hemoglobin 28.4 pg (28.0-32.0); Mean Corpuscular Hgb Conc. 33.4 g/dL (32.0-36.0); Mean Corpuscular Volume 85.1 fL (80.0-100.0); Monocytes # (auto) 0.5 10 ^3/uL (0-1.3); Monocytes % (auto) 5.7 % (0.0-12.0); Neutrophils # (auto) 6.1 10 ^3/uL (1.6-8.6); Neutrophils % (auto) 77.1 % (37.0-80.0); Red Blood Cells 3.04 10^6/uL (4.5-5.90); Red Cell Distribution Width 17.1 % (11.8-14.3)
[2023-04-22 06:06] LABS: Albumin 2.8 g/dL (3.2-4.8); Alkaline Phosphatase 215 U/L (46-116); Anion Gap 6 (5-15); Aspartate Aminotransferase 14 U/L (13-40); BUN/Creatinine Ratio 5.8 (10.0-20.0); Blood Urea Nitrogen 17 mg/dL (9-23); Calcium 8.1 mg/dL (8.5-10.1); Carbon Dioxide 29 mmol/L (20-30); Chloride 92 mmol/L (98-107); Glucose 150 mg/dL (74-106); Potassium 4.5 mmol/L (3.5-5.1); Sodium 127 mmol/L (136-145)
[2023-04-22 06:07] LABS: Alanine Aminotransferase < 9 U/L (7-40); Bilirubin, Total 0.6 mg/dL (0.2-1.0); Total Protein 6.9 g/dL (5.7-8.2)
[2023-04-22] MEDS: ACCU-CHEK COMFORT CURVE STRIP VI SCH ×4 (06:20→22:09)
[2023-04-22] MEDS: GABAPENTIN 300 MG CAP PO SCH ×3 (06:20→22:08)
[2023-04-22] MEDS: LEVOTHYROXINE SODIUM 50 MCG TAB PO SCH (06:20)
[2023-04-22] MEDS: InsuLIN REG 1unit/0.01ml Soln (100units/ml) SC SCH ×4 (06:22→22:08)
[2023-04-22] MEDS: oxyCODONE HCL 5MG TAB PO PRN (06:24)
[2023-04-22] MEDS ORDERED: SODIUM CHL 0.9% 1000 ML BAG XX ONE (07:00)
[2023-04-22] MEDS: SITAGLIPTIN PHOSPHATE 25 MG PO SCH (09:43)
[2023-04-22] MEDS: LINEZOLID 600MG/300ML 300 ML IV SCH ×2 (09:43→22:08)
[2023-04-22] MEDS: amLODIPine BESYLATE 5 MG TAB PO SCH (09:44)
[2023-04-22] MEDS: FUROSEMIDE 40 MG TAB PO SCH (09:45)
[2023-04-22] MEDS: ATORVASTATIN 20 MG TAB PO SCH (22:08)
[2023-04-23] VITALS (8 sets, daily range): BP systolic 102–134; BP diastolic 33–73; PULSE 82–93; RESP 14–18; TEMP 98–99.1; O2SAT 96–98
[2023-04-23] MEDS: oxyCODONE HCL 5MG TAB PO PRN ×3 (05:00→20:55)
[2023-04-23] MEDS: InsuLIN REG 1unit/0.01ml Soln (100units/ml) SC SCH ×4 (06:03→21:10)
[2023-04-23] MEDS: ACCU-CHEK COMFORT CURVE STRIP VI SCH ×4 (06:03→21:11)
[2023-04-23] MEDS: GABAPENTIN 300 MG CAP PO SCH ×3 (06:09→21:10)
[2023-04-23] MEDS: LEVOTHYROXINE SODIUM 50 MCG TAB PO SCH (06:09)
[2023-04-23 08:08] LABS: Basophils # (auto) 0.1 10 ^3/uL (0-0.2); Basophils % (auto) 1.1 % (0.0-2.0); Eosinophils # (auto) 0.4 10 ^3/uL (0-0.8); Eosinophils % (auto) 4.9 % (0.0-7.0); Hematocrit 26.7 % (41.0-53.0); Hemoglobin 8.6 g/dL (13.5-17.5); Lymphocytes # (auto) 0.8 10 ^3/uL (0.4-5.4); Lymphocytes % (auto) 9.2 % (10.0-50.0); Mean Corpuscular Hemoglobin 27.2 pg (28.0-32.0); Mean Corpuscular Hgb Conc. 32.1 g/dL (32.0-36.0); Mean Corpuscular Volume 84.8 fL (80.0-100.0); Monocytes # (auto) 0.4 10 ^3/uL (0-1.3); Monocytes % (auto) 4.6 % (0.0-12.0); Neutrophils # (auto) 6.7 10 ^3/uL (1.6-8.6); Neutrophils % (auto) 80.2 % (37.0-80.0); Red Blood Cells 3.15 10^6/uL (4.5-5.90); Red Cell Distribution Width 17.2 % (11.8-14.3); White Blood Cell 8.3 10^3/uL (4.4-10.8)
[2023-04-23 08:11] LABS: Calcium 8.2 mg/dL (8.5-10.1); Chloride 92 mmol/L (98-107); Potassium 4.6 mmol/L (3.5-5.1); Sodium 127 mmol/L (136-145)
[2023-04-23 08:12] LABS: Anion Gap 6 (5-15); Carbon Dioxide 29 mmol/L (20-30)
[2023-04-23 08:17] LABS: BUN/Creatinine Ratio 6.3 (10.0-20.0); Blood Urea Nitrogen 19 mg/dL (9-23); Glucose 126 mg/dL (74-106)
[2023-04-23] MEDS: FUROSEMIDE 40 MG TAB PO SCH (09:16)
[2023-04-23] MEDS: SITAGLIPTIN PHOSPHATE 25 MG PO SCH (09:16)
[2023-04-23] MEDS: LINEZOLID 600MG/300ML 300 ML IV SCH ×2 (09:17→21:10)
[2023-04-23] MEDS: ATORVASTATIN 20 MG TAB PO SCH (21:10)
[2023-04-24] VITALS (7 sets, daily range): BP systolic 123–153; BP diastolic 42–68; PULSE 83–95; RESP 14–20; TEMP 97.6–98.4; O2SAT 91–98
[2023-04-24 05:57] LABS: Basophils # (auto) 0.1 10 ^3/uL (0-0.2); Basophils % (auto) 1.2 % (0.0-2.0); Eosinophils # (auto) 0.2 10 ^3/uL (0-0.8); Eosinophils % (auto) 3.3 % (0.0-7.0); Hematocrit 27.9 % (41.0-53.0); Lymphocytes # (auto) 0.6 10 ^3/uL (0.4-5.4); Lymphocytes % (auto) 7.4 % (10.0-50.0); Mean Corpuscular Hemoglobin 27.9 pg (28.0-32.0); Mean Corpuscular Hgb Conc. 32.3 g/dL (32.0-36.0); Mean Corpuscular Volume 86.4 fL (80.0-100.0); Monocytes # (auto) 0.4 10 ^3/uL (0-1.3); Neutrophils # (auto) 6.2 10 ^3/uL (1.6-8.6); Neutrophils % (auto) 83.1 % (37.0-80.0); Red Blood Cells 3.23 10^6/uL (4.5-5.90); Red Cell Distribution Width 17.9 % (11.8-14.3); White Blood Cell 7.4 10^3/uL (4.4-10.8)
[2023-04-24 06:08] LABS: Chloride 98 mmol/L (98-107)
[2023-04-24 06:09] LABS: Anion Gap 6 (5-15); Calcium 8.4 mg/dL (8.5-10.1); Carbon Dioxide 29 mmol/L (20-30)
[2023-04-24 06:14] LABS: BUN/Creatinine Ratio 4.4 (10.0-20.0); Blood Urea Nitrogen 9 mg/dL (9-23); Glucose 142 mg/dL (74-106)
[2023-04-24] MEDS: GABAPENTIN 300 MG CAP PO SCH ×3 (06:24→21:15)
[2023-04-24] MEDS: LEVOTHYROXINE SODIUM 50 MCG TAB PO SCH (06:24)
[2023-04-24] MEDS: InsuLIN REG 1unit/0.01ml Soln (100units/ml) SC SCH ×4 (06:25→21:10)
[2023-04-24] MEDS: ACCU-CHEK COMFORT CURVE STRIP VI SCH ×4 (06:25→22:00)
[2023-04-24] MEDS: oxyCODONE HCL 5MG TAB PO PRN ×3 (06:33→20:37)
[2023-04-24 06:37] LABS: Sodium 133 mmol/L (136-145)
[2023-04-24] MEDS: LINEZOLID 600MG/300ML 300 ML IV SCH ×2 (10:02→21:15)
[2023-04-24] MEDS: FUROSEMIDE 40 MG TAB PO SCH (10:02)
[2023-04-24] MEDS: SITAGLIPTIN PHOSPHATE 25 MG PO SCH (10:03)
[2023-04-24] MEDS: ATORVASTATIN 20 MG TAB PO SCH (21:15)
[2023-04-25 05:00] VITALS: BP 134/46; PULSE 84; RESP 14; TEMP 98.3; O2SAT 98
[2023-04-25 06:01] LABS: Basophils # (auto) 0.1 10 ^3/uL (0-0.2); Basophils % (auto) 1.2 % (0.0-2.0); Eosinophils # (auto) 0.4 10 ^3/uL (0-0.8); Hematocrit 27.5 % (41.0-53.0); Hemoglobin 8.9 g/dL (13.5-17.5); Lymphocytes # (auto) 0.9 10 ^3/uL (0.4-5.4); Lymphocytes % (auto) 11.3 % (10.0-50.0); Mean Corpuscular Hemoglobin 27.9 pg (28.0-32.0); Mean Corpuscular Hgb Conc. 32.3 g/dL (32.0-36.0); Mean Corpuscular Volume 86.3 fL (80.0-100.0); Monocytes # (auto) 0.3 10 ^3/uL (0-1.3); Neutrophils # (auto) 6.5 10 ^3/uL (1.6-8.6); Neutrophils % (auto) 78.5 % (37.0-80.0); Nucleated Red Blood Cells % 0.1 %; Red Blood Cells 3.18 10^6/uL (4.5-5.90); Red Cell Distribution Width 17.8 % (11.8-14.3); White Blood Cell 8.3 10^3/uL (4.4-10.8)
[2023-04-25] MEDS: LEVOTHYROXINE SODIUM 50 MCG TAB PO SCH (06:13)
[2023-04-25] MEDS: oxyCODONE HCL 5MG TAB PO PRN (06:13)
[2023-04-25] MEDS: GABAPENTIN 300 MG CAP PO SCH ×2 (06:13→14:33)
[2023-04-25] MEDS: ACCU-CHEK COMFORT CURVE STRIP VI SCH ×3 (06:14→17:19)
[2023-04-25] MEDS: InsuLIN REG 1unit/0.01ml Soln (100units/ml) SC SCH ×3 (06:14→17:23)
[2023-04-25 06:28] LABS: Anion Gap 3 (5-15); Carbon Dioxide 30 mmol/L (20-30); Chloride 97 mmol/L (98-107); Potassium 4.1 mmol/L (3.5-5.1); Sodium 130 mmol/L (136-145)
[2023-04-25 06:29] LABS: Calcium 8.3 mg/dL (8.7-10.4)
[2023-04-25 06:34] LABS: BUN/Creatinine Ratio 5.4 (10.0-20.0); Blood Urea Nitrogen 13 mg/dL (9-23); Glucose 131 mg/dL (74-106)
[2023-04-25] MEDS ORDERED: SODIUM CHL 0.9% 1000 ML BAG XX ONE (07:00)
[2023-04-25 08:00] VITALS: BP 129/76; PULSE 84; RESP 17; TEMP 98.2; O2SAT 91; O2SAT 98
[2023-04-25] MEDS: FUROSEMIDE 40 MG TAB PO SCH (09:45)
[2023-04-25] MEDS: SITAGLIPTIN PHOSPHATE 25 MG PO SCH (09:46)
[2023-04-25] MEDS: LINEZOLID 600MG/300ML 300 ML IV SCH (09:46)
[2023-04-25] MEDS ORDERED: LINE1TAB10 PO (09:50)
[2023-04-25 13:00] VITALS: BP 147/38; PULSE 90; RESP 17; TEMP 98.1; O2SAT 98
[2023-04-25 17:00] VITALS: BP 90/38; PULSE 84; RESP 17; TEMP 99.2; O2SAT 100
[2023-04-25 17:33] VITALS: BP 135/38; PULSE 84; RESP 17; TEMP 98.2; O2SAT 91
[2023-04-25] MEDS ORDERED: EPOETIN ALFA-EPBX 10,000 UNIT/1ML VIAL SC ONE (21:00)
== END 2023-04-25 18:48 | disposition home health service (06) | DRG 420 ==
LOC: EDBD 18:07 → ER 18:07 → TELE 22:15 → TELE-EAST 04-10 07:53
PROVIDERS: ADMIT Internal Medicine Pulmonary Disease; ATTEND Student in an Organized Health Care Education/Training Program
PROC: 30233N1 Transfusion of Nonautologous Red Blood Cells into Peripheral Vein, Percutaneous Approach (ICD-10-PCS; principal; 2023-04-10)
PROC: 5A1D70Z Performance of Urinary Filtration, Intermittent, Less than 6 Hours Per Day (ICD-10-PCS; 2023-04-12)
PROC: 5A1D70Z Performance of Urinary Filtration, Intermittent, Less than 6 Hours Per Day (ICD-10-PCS; 2023-04-16)
PROC: 5A1D70Z Performance of Urinary Filtration, Intermittent, Less than 6 Hours Per Day (ICD-10-PCS; 2023-04-18)
PROC: 5A1D70Z Performance of Urinary Filtration, Intermittent, Less than 6 Hours Per Day (ICD-10-PCS; 2023-04-23)
PROC: 5A1D70Z Performance of Urinary Filtration, Intermittent, Less than 6 Hours Per Day (ICD-10-PCS; 2023-04-25)
DX: E11.69 Type 2 diabetes mellitus with other specified complication (principal); J96.01 Acute respiratory failure with hypoxia; I21.4 Non-ST elevation (NSTEMI) myocardial infarction; E44.0 Moderate protein-calorie malnutrition; I12.0 Hypertensive chronic kidney disease with stage 5 chronic kidney disease or end stage renal disease; I27.20 Pulmonary hypertension, unspecified; J18.9 Pneumonia, unspecified organism; D63.1 Anemia in chronic kidney disease; E87.1 Hypo-osmolality and hyponatremia; E11.22 Type 2 diabetes mellitus with diabetic chronic kidney disease; N18.6 End stage renal disease; E03.9 Hypothyroidism, unspecified; M46.45 Discitis, unspecified, thoracolumbar region; E66.9 Obesity, unspecified; R56.9 Unspecified convulsions; M46.24 Osteomyelitis of vertebra, thoracic region; N39.0 Urinary tract infection, site not specified; E78.5 Hyperlipidemia, unspecified; I25.10 Atherosclerotic heart disease of native coronary artery without angina pectoris; M46.25 Osteomyelitis of vertebra, thoracolumbar region; Z79.4 Long term (current) use of insulin; Z79.899 Other long term (current) drug therapy; Z99.2 Dependence on renal dialysis; Z91.158 Patient's noncompliance with renal dialysis for other reason; Z89.512 Acquired absence of left leg below knee; Z82.49 Family history of ischemic heart disease and other diseases of the circulatory system; Z83.3 Family history of diabetes mellitus; Z68.28 Body mass index [BMI] 28.0-28.9, adult; Z74.01 Bed confinement status
CPT/HCPCS: 36415; 36430; 70450; 70551; 71045; 71275; 72146; 80048; 80053; 80074; 81001; 82140; 82728; 82962; 83540; 83550; 83605; 83735; 84484; 85014; 85018; 85025; 85610; 85730; 86706; 86708; 86803; 86850; 86900; 86901; 86920; 87040; 87081; 87086; 87088; 87186; 87426; 90935; 93005; 95819; C9113; G0378; J0696; J1642; J1815

== ENCOUNTER 2023-05-02 14:09 | Inpatient (IN) | payer MEDICAID ==
[~2023-05-02] VITALS: Ht 152.4 cm; Wt 68.3 kg
[~2023-05-02 14:09] MED LIST changes: +LINE1TAB10 PO
[2023-05-02 14:10] VITALS: PULSE 71; RESP 15; O2SAT 100
[2023-05-02] MEDS ORDERED: SODIUM CHLORIDE 0.9% 1,000 ML IV ONE ×2 (14:30)
[2023-05-02] MEDS ORDERED: PIPERACILLIN-TAZOB 3.375GM 100 ML IV ONE (14:30)
[2023-05-02] MEDS ORDERED: AZITHROMYCIN 500MG/ 250ML 250 ML IV ONE (14:30)
[2023-05-02] MEDS: NOREPINEPHRINE 8 MG/250ML KIT 250 ML IV SCH ×2 (14:30→14:55)
[2023-05-02 15:00] LABS: Basophils # (auto) 0 10 ^3/uL (0-0.2); Basophils % (auto) 0.1 % (0.0-2.0); Eosinophils # (auto) 0 10 ^3/uL (0-0.8); Eosinophils % (auto) 0.2 % (0.0-7.0); Hemoglobin 7.7 g/dL (13.5-17.5); Lymphocytes # (auto) 0.9 10 ^3/uL (0.4-5.4); Lymphocytes % (auto) 9.4 % (10.0-50.0); Mean Corpuscular Hemoglobin 27.8 pg (28.0-32.0); Mean Corpuscular Hgb Conc. 32.2 g/dL (32.0-36.0); Mean Corpuscular Volume 86.4 fL (80.0-100.0); Monocytes # (auto) 0.5 10 ^3/uL (0-1.3); Monocytes % (auto) 5.1 % (0.0-12.0); Neutrophils # (auto) 8.5 10 ^3/uL (1.6-8.6); Neutrophils % (auto) 85.2 % (37.0-80.0); Nucleated Red Blood Cells % 0.1 %; Red Blood Cells 2.78 10^6/uL (4.5-5.90); Red Cell Distribution Width 18.1 % (11.8-14.3)
[2023-05-02 15:03] LABS: Albumin 3.1 g/dL (3.2-4.8); Alkaline Phosphatase 170 U/L (46-116); Anion Gap 12 (5-15); Aspartate Aminotransferase 8 U/L (13-40); BUN/Creatinine Ratio 12.2 (10.0-20.0); Blood Urea Nitrogen 58 mg/dL (9-23); Calcium 7.7 mg/dL (8.5-10.1); Carbon Dioxide 33 mmol/L (20-30); Chloride 91 mmol/L (98-107); Glucose 209 mg/dL (74-106); Sodium 136 mmol/L (136-145)
[2023-05-02 15:04] LABS: Bilirubin, Total 0.5 mg/dL (0.2-1.0); Lactic Acid w/Reflex 6.9 mmol/L (0.4-2.0); Total Protein 6.9 g/dL (5.7-8.2)
[2023-05-02 15:05] LABS: Alanine Aminotransferase < 9 U/L (7-40)
[2023-05-02 15:13] LABS: INR 1.36 (0.9-1.15); Partial Thromboplastin Time 32.7 SEC (24.5-34.5)
[2023-05-02] MEDS ORDERED: VANCOMYCIN PER PHARMACY 0 MG IV SCH (17:30)
[2023-05-02] MEDS ORDERED: MORPHINE SULFATE INJ 2 MG/ml SYRG IV PRN (17:30)
[2023-05-02] MEDS ORDERED: NITROGLYCERIN 0.4 MG SL TAB SL PRN (17:30)
[2023-05-02] MEDS ORDERED: LIDOCAINE 1% (LOCAL ANESTH.) PF 5ml SDV ID ONE (17:30)
[2023-05-02] MEDS ORDERED: VANCOMYCIN 1GM/250ML 250 ML IV ONE (18:00)
[2023-05-02 20:09] VITALS: PULSE 74; RESP 16; O2SAT 98
[2023-05-02] MEDS ORDERED: DEXTROSE (50%) 50ML SYRG IV PRN (20:15)
[2023-05-02] MEDS: SODIUM CHLOR 0.9% PF (SALINE LOCK) 10ML VIAL/SYR IV SCH (22:00)
[2023-05-02] MEDS: PIPERACILLIN-TAZOB 2.25GM 50 ML IV SCH (22:24)
[2023-05-02] MEDS: HEPARIN SODIUM (PORCINE) 5000 UNITS/ML 1ML VIAL SC SCH (22:25)
[2023-05-02] MEDS: InsuLIN REG 1unit/0.01ml Soln (100units/ml) SC SCH (22:26)
[2023-05-02] MEDS: ACCU-CHEK COMFORT CURVE STRIP VI SCH (22:26)
[2023-05-03] VITALS (7 sets, daily range): BP systolic 108–144; BP diastolic 16–48; PULSE 76–87; RESP 12–19; TEMP 97.3–99.2; O2SAT 96–99
[2023-05-03] MEDS: InsuLIN REG 1unit/0.01ml Soln (100units/ml) SC SCH ×4 (06:40→22:00)
[2023-05-03] MEDS: ACCU-CHEK COMFORT CURVE STRIP VI SCH ×4 (06:40→22:15)
[2023-05-03 06:52] LABS: Albumin 2.8 g/dL (3.2-4.8); Alkaline Phosphatase 144 U/L (46-116); Anion Gap 9 (5-15); Aspartate Aminotransferase < 8 U/L (13-40); BUN/Creatinine Ratio 10.3 (10.0-20.0); Bilirubin, Total 0.5 mg/dL (0.2-1.0); Blood Urea Nitrogen 51 mg/dL (9-23); Calcium 7.7 mg/dL (8.5-10.1); Carbon Dioxide 37 mmol/L (20-30); Chloride 90 mmol/L (98-107); Glucose 113 mg/dL (74-106); Potassium 3.3 mmol/L (3.5-5.1); Sodium 136 mmol/L (136-145); Total Protein 6.4 g/dL (5.7-8.2)
[2023-05-03 06:57] LABS: Alanine Aminotransferase < 9 U/L (7-40)
[2023-05-03 07:02] LABS: Basophils # (auto) 0 10 ^3/uL (0-0.2); Eosinophils # (auto) 0 10 ^3/uL (0-0.8); Neutrophils # (auto) 8.7 10 ^3/uL (1.6-8.6)
[2023-05-03 07:05] LABS: Basophils % (auto) 0.2 % (0.0-2.0); Eosinophils % (auto) 0.3 % (0.0-7.0); Hematocrit 20.3 % (41.0-53.0); Mean Corpuscular Hemoglobin 28.1 pg (28.0-32.0); Mean Corpuscular Hgb Conc. 32.9 g/dL (32.0-36.0); Mean Corpuscular Volume 85.4 fL (80.0-100.0); Monocytes # (auto) 0.6 10 ^3/uL (0-1.3); Monocytes % (auto) 5.6 % (0.0-12.0); Neutrophils % (auto) 83.9 % (37.0-80.0); Red Blood Cells 2.38 10^6/uL (4.5-5.90); Red Cell Distribution Width 17.6 % (11.8-14.3); White Blood Cell 10.4 10^3/uL (4.4-10.8)
[2023-05-03 07:17] LABS: Hemoglobin 6.7 g/dL (13.5-17.5)
[2023-05-03] MEDS: SODIUM CHLOR 0.9% PF (SALINE LOCK) 10ML VIAL/SYR IV SCH ×2 (10:12→22:14)
[2023-05-03] MEDS: ASPirin 81 mg TAB PO SCH (10:12)
[2023-05-03] MEDS: PIPERACILLIN-TAZOB 2.25GM 50 ML IV SCH ×2 (10:12→22:14)
[2023-05-03] MEDS: HEPARIN SODIUM (PORCINE) 5000 UNITS/ML 1ML VIAL SC SCH ×2 (10:14→22:17)
[2023-05-03 16:02] LABS: Urine Bacteria NONE SEEN /hpf (None Seen); Urine Blood TRACE /uL (Negative); Urine Budding Yeast FEW /hpf (None Seen); Urine Clarity HAZY (Clear); Urine Color Yellow (Yellow); Urine Hyaline Cast FEW /lpf (0 - 2); Urine Protein, UAD 2+ (Negative); Urine Specific Gravity 1.019 (1.001-1.035); Urine Urobilinogen Normal (Negative); Urine WBC 28 /hpf (0 - 3)
[2023-05-03] MEDS ORDERED: VANCOMYCIN 500 MG in D5W 5% 100 ML IV ONE (17:00)
[2023-05-03 20:24] LABS: Basophils # (auto) 0.1 10 ^3/uL (0-0.2); Basophils % (auto) 0.6 % (0.0-2.0); Eosinophils # (auto) 0.1 10 ^3/uL (0-0.8); Eosinophils % (auto) 0.8 % (0.0-7.0); Hematocrit 30.2 % (41.0-53.0); Hemoglobin 9.6 g/dL (13.5-17.5); Lymphocytes # (auto) 0.5 10 ^3/uL (0.4-5.4); Lymphocytes % (auto) 4.2 % (10.0-50.0); Mean Corpuscular Hemoglobin 27.5 pg (28.0-32.0); Mean Corpuscular Hgb Conc. 31.7 g/dL (32.0-36.0); Mean Corpuscular Volume 86.6 fL (80.0-100.0); Monocytes # (auto) 0.4 10 ^3/uL (0-1.3); Monocytes % (auto) 3.2 % (0.0-12.0); Neutrophils # (auto) 10.8 10 ^3/uL (1.6-8.6); Neutrophils % (auto) 91.2 % (37.0-80.0); Red Blood Cells 3.49 10^6/uL (4.5-5.90); Red Cell Distribution Width 17.4 % (11.8-14.3); White Blood Cell 11.9 10^3/uL (4.4-10.8)
[2023-05-03] MEDS: FAMOTIDINE (10MG/ML) 2ML VL IV SCH (20:32)
[2023-05-04] MEDS: ACETAMINOPHEN 325 MG TAB PO PRN (00:31)
[2023-05-04 05:00] VITALS: BP 126/69; PULSE 82; RESP 16; TEMP 98.2; O2SAT 98
[2023-05-04] MEDS: InsuLIN REG 1unit/0.01ml Soln (100units/ml) SC SCH ×4 (06:13→22:00)
[2023-05-04] MEDS: ACCU-CHEK COMFORT CURVE STRIP VI SCH ×4 (06:13→22:01)
[2023-05-04 08:00] VITALS: BP_SYST 101; BP_SYST 150; BP_DIAS 41; BP_DIAS 51; PULSE 80; PULSE 84; RESP 16; RESP 18; TEMP 98.4; TEMP 98.7; O2SAT 95; O2SAT 98
[2023-05-04] MEDS ORDERED: SODIUM CHL 0.9% 1000 ML BAG XX ONE (08:15)
[2023-05-04] MEDS: SODIUM CHLOR 0.9% PF (SALINE LOCK) 10ML VIAL/SYR IV SCH ×2 (09:53→22:00)
[2023-05-04] MEDS: FAMOTIDINE (10MG/ML) 2ML VL IV SCH (09:53)
[2023-05-04] MEDS: PIPERACILLIN-TAZOB 2.25GM 50 ML IV SCH ×2 (09:53→22:00)
[2023-05-04] MEDS: ASPirin 81 mg TAB PO SCH (09:53)
[2023-05-04] MEDS: HEPARIN SODIUM (PORCINE) 5000 UNITS/ML 1ML VIAL SC SCH ×2 (09:59→22:03)
[2023-05-04] MEDS ORDERED: LINEZOLID 600MG TABLET PO ONE (10:45)
[2023-05-04] MEDS ORDERED: LEVOTHYROXINE SODIUM 50 MCG TAB PO ONE (10:45)
[2023-05-04 12:00] VITALS: BP 139/74; PULSE 66; RESP 18; TEMP 98.1; O2SAT 98
[2023-05-04 16:00] VITALS: BP 151/53; PULSE 80; RESP 16; TEMP 98.2; O2SAT 96
[2023-05-04] MEDS ORDERED: HEPARIN 1,000 UNITS/ml 1ML VIAL XX SCH (17:00)
[2023-05-04] MEDS ORDERED: HEPARIN 1,000 UNITS/ml 1ML VIAL IV SCH (17:00)
[2023-05-04] MEDS ORDERED: HEPARIN 1,000 UNITS/ml 1ML VIAL IV ONE (18:00)
[2023-05-04] MEDS ORDERED: HEPARIN SODIUM (PORCINE) 5000 UNITS/ML 1ML VIAL XX SCH (18:30)
[2023-05-04] MEDS: HEPARIN 1,000 UNITS/ml 1ML VIAL XX SCH (18:30)
[2023-05-04 20:00] VITALS: PULSE 86; PULSE 87; RESP 18
[2023-05-04] MEDS ORDERED: EPOETIN ALFA-EPBX 10,000 UNIT/1ML VIAL SC ONE (21:00)
[2023-05-04] MEDS: LINEZOLID 600MG TABLET PO SCH (22:00)
[2023-05-04] MEDS: CARVEDILOL 3.125 MG TAB PO SCH (22:00)
[2023-05-04] MEDS: ATORVASTATIN 20 MG TAB PO SCH (22:00)
[2023-05-04 22:02] VITALS: BP 147/70; PULSE 86; RESP 18; TEMP 98.2; O2SAT 95
[2023-05-05] VITALS (7 sets, daily range): BP systolic 107–189; BP diastolic 56–85; PULSE 81–93; RESP 14–18; TEMP 98.1–98.6; O2SAT 90–100
[2023-05-05] MEDS: InsuLIN REG 1unit/0.01ml Soln (100units/ml) SC SCH ×4 (06:21→21:59)
[2023-05-05] MEDS: LEVOTHYROXINE SODIUM 50 MCG TAB PO SCH (06:21)
[2023-05-05] MEDS: ACCU-CHEK COMFORT CURVE STRIP VI SCH ×4 (06:21→21:59)
[2023-05-05] MEDS: CARVEDILOL 3.125 MG TAB PO SCH ×2 (09:10→21:56)
[2023-05-05] MEDS: LINEZOLID 600MG TABLET PO SCH ×2 (09:17→22:00)
[2023-05-05] MEDS: FAMOTIDINE (10MG/ML) 2ML VL IV SCH (09:28)
[2023-05-05] MEDS: SODIUM CHLOR 0.9% PF (SALINE LOCK) 10ML VIAL/SYR IV SCH ×2 (09:28→21:52)
[2023-05-05] MEDS: PIPERACILLIN-TAZOB 2.25GM 50 ML IV SCH ×2 (09:29→21:50)
[2023-05-05] MEDS: ASPirin 81 mg TAB PO SCH (09:29)
[2023-05-05] MEDS: HEPARIN SODIUM (PORCINE) 5000 UNITS/ML 1ML VIAL SC SCH ×2 (09:56→22:04)
[2023-05-05] MEDS ORDERED: LORazepam 2MG/ML-1ML VIAL IV PRN (11:30)
[2023-05-05] MEDS ORDERED: PANTOPRAZOLE 40 MG/10 ML VIAL INJ IV ONE (11:45)
[2023-05-05] MEDS: MORPHINE SULFATE INJ 2 MG/ml SYRG IV PRN ×2 (12:43→17:20)
[2023-05-05] MEDS: SUCRALFATE 1 GM/10 ML ORAL SUSP PO SCH ×2 (17:10→21:57)
[2023-05-05] MEDS: NYSTATIN (MOUTH-THROAT) 500,000 UNITS/5 ML SUSP MT SCH ×2 (18:08→21:57)
[2023-05-05] MEDS: ATORVASTATIN 20 MG TAB PO SCH (21:55)
[2023-05-06] VITALS (7 sets, daily range): BP systolic 146–190; BP diastolic 69–94; PULSE 72–87; RESP 16–18; TEMP 97.7–99; O2SAT 96–100
[2023-05-06] MEDS: ACCU-CHEK COMFORT CURVE STRIP VI SCH ×4 (05:54→21:47)
[2023-05-06] MEDS: InsuLIN REG 1unit/0.01ml Soln (100units/ml) SC SCH ×4 (05:56→21:40)
[2023-05-06] MEDS: SUCRALFATE 1 GM/10 ML ORAL SUSP PO SCH ×4 (06:04→21:16)
[2023-05-06] MEDS: NYSTATIN (MOUTH-THROAT) 500,000 UNITS/5 ML SUSP MT SCH ×4 (06:04→21:16)
[2023-05-06] MEDS: LEVOTHYROXINE SODIUM 50 MCG TAB PO SCH (06:12)
[2023-05-06] MEDS: MORPHINE SULFATE INJ 2 MG/ml SYRG IV PRN ×2 (09:15→15:04)
[2023-05-06] MEDS ORDERED: SODIUM CHL 0.9% 1000 ML BAG XX ONE (09:45)
[2023-05-06] MEDS: ASPirin 81 mg TAB PO SCH (10:00)
[2023-05-06] MEDS: SODIUM CHLOR 0.9% PF (SALINE LOCK) 10ML VIAL/SYR IV SCH ×2 (10:00→21:15)
[2023-05-06] MEDS: B-COMPLEX W/ C & FOLIC ACID(NEPHROVITE TAB) PO SCH (10:00)
[2023-05-06] MEDS: PANTOPRAZOLE 40 MG/10 ML VIAL INJ IV SCH ×2 (10:00→15:03)
[2023-05-06] MEDS: HEPARIN SODIUM (PORCINE) 5000 UNITS/ML 1ML VIAL SC SCH ×2 (10:00→21:39)
[2023-05-06] MEDS: PIPERACILLIN-TAZOB 2.25GM 50 ML IV SCH ×3 (10:00→21:15)
[2023-05-06] MEDS: LINEZOLID 600MG TABLET PO SCH ×2 (10:00→21:24)
[2023-05-06] MEDS: CARVEDILOL 3.125 MG TAB PO SCH ×2 (10:00→21:16)
[2023-05-06] MEDS: FAMOTIDINE (10MG/ML) 2ML VL IV SCH ×2 (10:00→15:03)
[2023-05-06 10:26] LABS: Basophils # (auto) 0 10 ^3/uL (0-0.2); Basophils % (auto) 0.3 % (0.0-2.0); Eosinophils # (auto) 0.4 10 ^3/uL (0-0.8); Eosinophils % (auto) 4.4 % (0.0-7.0); Hematocrit 26.5 % (41.0-53.0); Hemoglobin 8.6 g/dL (13.5-17.5); Lymphocytes # (auto) 0.6 10 ^3/uL (0.4-5.4); Lymphocytes % (auto) 7.2 % (10.0-50.0); Mean Corpuscular Hemoglobin 28.4 pg (28.0-32.0); Mean Corpuscular Hgb Conc. 32.6 g/dL (32.0-36.0); Monocytes # (auto) 0.7 10 ^3/uL (0-1.3); Monocytes % (auto) 8.7 % (0.0-12.0); Neutrophils # (auto) 6.3 10 ^3/uL (1.6-8.6); Neutrophils % (auto) 79.4 % (37.0-80.0); Red Blood Cells 3.04 10^6/uL (4.5-5.90); Red Cell Distribution Width 17.3 % (11.8-14.3); White Blood Cell 7.9 10^3/uL (4.4-10.8)
[2023-05-06 10:45] LABS: Albumin 2.8 g/dL (3.2-4.8); Alkaline Phosphatase 138 U/L (46-116); Anion Gap 3 (5-15); Aspartate Aminotransferase 10 U/L (13-40); BUN/Creatinine Ratio 11.9 (10.0-20.0); Bilirubin, Total 0.8 mg/dL (0.2-1.0); Blood Urea Nitrogen 28 mg/dL (9-23); Calcium 7.8 mg/dL (8.5-10.1); Carbon Dioxide 31 mmol/L (20-30); Chloride 100 mmol/L (98-107); Glucose 146 mg/dL (74-106); Potassium 3.3 mmol/L (3.5-5.1); Sodium 134 mmol/L (136-145); Total Protein 6.1 g/dL (5.7-8.2)
[2023-05-06 11:07] LABS: Hepatitis B Surface Antigen Negative (Negative)
[2023-05-06 11:28] LABS: Hepatitis A Ab IgM Negative
[2023-05-06 11:29] LABS: Alanine Aminotransferase < 9 U/L (7-40); Hepatitis B Core IgM Negative; Hepatitis C Antibody Negative (Negative)
[2023-05-06] MEDS: Pro-Stat SF 30ml Vanilla PO SCH (15:09)
[2023-05-06] MEDS ORDERED: EPOETIN ALFA-EPBX 10,000 UNIT/1ML VIAL SC ONE (21:00)
[2023-05-06] MEDS: ATORVASTATIN 20 MG TAB PO SCH (21:16)
[2023-05-07] VITALS (7 sets, daily range): BP systolic 123–186; BP diastolic 55–84; PULSE 70–82; RESP 17–19; TEMP 97.8–98.6; O2SAT 100
[2023-05-07] MEDS: hydrALAZINE HCL 20 MG/ML VL IV PRN ×2 (00:12→04:43)
[2023-05-07] MEDS: LEVOTHYROXINE SODIUM 50 MCG TAB PO SCH (06:19)
[2023-05-07] MEDS: SUCRALFATE 1 GM/10 ML ORAL SUSP PO SCH ×4 (06:19→21:47)
[2023-05-07] MEDS: NYSTATIN (MOUTH-THROAT) 500,000 UNITS/5 ML SUSP MT SCH ×4 (06:19→21:47)
[2023-05-07] MEDS: ACCU-CHEK COMFORT CURVE STRIP VI SCH ×4 (06:19→21:53)
[2023-05-07] MEDS: InsuLIN REG 1unit/0.01ml Soln (100units/ml) SC SCH ×4 (06:20→21:53)
[2023-05-07 06:51] LABS: Chloride 101 mmol/L (98-107); Potassium 3.4 mmol/L (3.5-5.1); Sodium 138 mmol/L (136-145)
[2023-05-07 06:52] LABS: Anion Gap 6 (5-15); Carbon Dioxide 31 mmol/L (20-30)
[2023-05-07 06:53] LABS: Calcium 7.9 mg/dL (8.7-10.4)
[2023-05-07 06:54] LABS: Basophils # (auto) 0 10 ^3/uL (0-0.2); Basophils % (auto) 0.4 % (0.0-2.0); Eosinophils # (auto) 0.4 10 ^3/uL (0-0.8); Eosinophils % (auto) 4.9 % (0.0-7.0); Hematocrit 26.2 % (41.0-53.0); Hemoglobin 8.6 g/dL (13.5-17.5); Lymphocytes # (auto) 0.8 10 ^3/uL (0.4-5.4); Mean Corpuscular Hemoglobin 28.6 pg (28.0-32.0); Mean Corpuscular Hgb Conc. 32.8 g/dL (32.0-36.0); Mean Corpuscular Volume 87.1 fL (80.0-100.0); Monocytes # (auto) 0.9 10 ^3/uL (0-1.3); Monocytes % (auto) 12.2 % (0.0-12.0); Neutrophils # (auto) 5.6 10 ^3/uL (1.6-8.6); Neutrophils % (auto) 72.5 % (37.0-80.0); Red Blood Cells 3.01 10^6/uL (4.5-5.90); Red Cell Distribution Width 17.5 % (11.8-14.3); White Blood Cell 7.7 10^3/uL (4.4-10.8)
[2023-05-07 06:58] LABS: BUN/Creatinine Ratio 8.2 (10.0-20.0); Blood Urea Nitrogen 14 mg/dL (9-23); Glucose 125 mg/dL (74-106)
[2023-05-07] MEDS: PIPERACILLIN-TAZOB 2.25GM 50 ML IV SCH ×2 (09:36→21:51)
[2023-05-07] MEDS: SODIUM CHLOR 0.9% PF (SALINE LOCK) 10ML VIAL/SYR IV SCH ×2 (09:36→21:52)
[2023-05-07] MEDS: FAMOTIDINE (10MG/ML) 2ML VL IV SCH (09:36)
[2023-05-07] MEDS: PANTOPRAZOLE 40 MG/10 ML VIAL INJ IV SCH (09:36)
[2023-05-07] MEDS: ASPirin 81 mg TAB PO SCH (09:37)
[2023-05-07] MEDS: CARVEDILOL 3.125 MG TAB PO SCH ×2 (09:37→21:51)
[2023-05-07] MEDS: amLODIPine BESYLATE 5 MG TAB PO SCH (09:38)
[2023-05-07] MEDS: LINEZOLID 600MG TABLET PO SCH ×2 (09:38→21:58)
[2023-05-07] MEDS: B-COMPLEX W/ C & FOLIC ACID(NEPHROVITE TAB) PO SCH (09:38)
[2023-05-07] MEDS: HEPARIN SODIUM (PORCINE) 5000 UNITS/ML 1ML VIAL SC SCH ×2 (09:41→21:52)
[2023-05-07] MEDS: HEPARIN 1,000 UNITS/ml 1ML VIAL XX SCH (10:00)
[2023-05-07] MEDS: Pro-Stat SF 30ml Vanilla PO SCH (10:00)
[2023-05-07] MEDS: ATORVASTATIN 20 MG TAB PO SCH (21:50)
[2023-05-08] VITALS (7 sets, daily range): BP systolic 148–169; BP diastolic 54–79; PULSE 76–89; RESP 18–19; TEMP 97.3–98.4; O2SAT 95–100
[2023-05-08] MEDS: NYSTATIN (MOUTH-THROAT) 500,000 UNITS/5 ML SUSP MT SCH ×4 (06:18→21:20)
[2023-05-08] MEDS: LEVOTHYROXINE SODIUM 50 MCG TAB PO SCH (06:50)
[2023-05-08] MEDS: ACCU-CHEK COMFORT CURVE STRIP VI SCH ×4 (06:50→21:39)
[2023-05-08] MEDS: SUCRALFATE 1 GM/10 ML ORAL SUSP PO SCH ×4 (06:50→21:20)
[2023-05-08] MEDS: InsuLIN REG 1unit/0.01ml Soln (100units/ml) SC SCH ×4 (06:52→21:38)
[2023-05-08] MEDS: PANTOPRAZOLE 40 MG/10 ML VIAL INJ IV SCH (09:50)
[2023-05-08] MEDS: FAMOTIDINE (10MG/ML) 2ML VL IV SCH (09:50)
[2023-05-08] MEDS: PIPERACILLIN-TAZOB 2.25GM 50 ML IV SCH ×2 (09:50→21:27)
[2023-05-08] MEDS: amLODIPine BESYLATE 5 MG TAB PO SCH (09:51)
[2023-05-08] MEDS: B-COMPLEX W/ C & FOLIC ACID(NEPHROVITE TAB) PO SCH (09:51)
[2023-05-08] MEDS: CARVEDILOL 3.125 MG TAB PO SCH ×2 (09:52→21:21)
[2023-05-08] MEDS: ASPirin 81 mg TAB PO SCH (10:00)
[2023-05-08] MEDS: Pro-Stat SF 30ml Vanilla PO SCH (10:00)
[2023-05-08] MEDS: SODIUM CHLOR 0.9% PF (SALINE LOCK) 10ML VIAL/SYR IV SCH ×2 (10:00→21:14)
[2023-05-08] MEDS: HEPARIN SODIUM (PORCINE) 5000 UNITS/ML 1ML VIAL SC SCH ×2 (10:06→21:35)
[2023-05-08] MEDS: LINEZOLID 600MG TABLET PO SCH ×2 (12:19→21:21)
[2023-05-08] MEDS ORDERED: MICAFUNGIN SODIUM 100 MG in SODIUM CHL 0.9% 100 ML IV ONE (15:15)
[2023-05-08] MEDS: MORPHINE SULFATE INJ 2 MG/ml SYRG IV PRN (19:48)
[2023-05-08] MEDS: ATORVASTATIN 20 MG TAB PO SCH (21:27)
[2023-05-09] VITALS (7 sets, daily range): BP systolic 121–169; BP diastolic 48–85; PULSE 74–82; RESP 17–20; TEMP 97.2–98.6; O2SAT 92–100
[2023-05-09] MEDS: MORPHINE SULFATE INJ 2 MG/ml SYRG IV PRN ×2 (04:43→22:30)
[2023-05-09] MEDS: NYSTATIN (MOUTH-THROAT) 500,000 UNITS/5 ML SUSP MT SCH ×6 (05:58→22:26)
[2023-05-09] MEDS: LEVOTHYROXINE SODIUM 50 MCG TAB PO SCH ×3 (05:59→06:15)
[2023-05-09] MEDS: SUCRALFATE 1 GM/10 ML ORAL SUSP PO SCH ×6 (05:59→22:26)
[2023-05-09] MEDS: ACCU-CHEK COMFORT CURVE STRIP VI SCH ×4 (05:59→22:26)
[2023-05-09] MEDS: InsuLIN REG 1unit/0.01ml Soln (100units/ml) SC SCH ×4 (06:06→22:36)
[2023-05-09] MEDS ORDERED: SODIUM CHL 0.9% 1000 ML BAG XX ONE (07:45)
[2023-05-09] MEDS: HEPARIN 1,000 UNITS/ml 1ML VIAL XX SCH (10:00)
[2023-05-09] MEDS: Pro-Stat SF 30ml Vanilla PO SCH (10:00)
[2023-05-09] MEDS: B-COMPLEX W/ C & FOLIC ACID(NEPHROVITE TAB) PO SCH (12:16)
[2023-05-09] MEDS: ASPirin 81 mg TAB PO SCH (12:16)
[2023-05-09] MEDS: amLODIPine BESYLATE 5 MG TAB PO SCH (12:17)
[2023-05-09] MEDS: CARVEDILOL 3.125 MG TAB PO SCH ×2 (12:18→22:26)
[2023-05-09] MEDS: FAMOTIDINE (10MG/ML) 2ML VL IV SCH (12:19)
[2023-05-09] MEDS: PANTOPRAZOLE 40 MG/10 ML VIAL INJ IV SCH (12:19)
[2023-05-09] MEDS: SODIUM CHLOR 0.9% PF (SALINE LOCK) 10ML VIAL/SYR IV SCH ×2 (12:20→22:29)
[2023-05-09] MEDS: PIPERACILLIN-TAZOB 2.25GM 50 ML IV SCH ×2 (12:20→22:25)
[2023-05-09] MEDS: LINEZOLID 600MG TABLET PO SCH ×2 (12:23→22:25)
[2023-05-09] MEDS: HEPARIN SODIUM (PORCINE) 5000 UNITS/ML 1ML VIAL SC SCH ×2 (12:23→22:00)
[2023-05-09] MEDS ORDERED: EPOETIN ALFA-EPBX 10,000 UNIT/1ML VIAL SC ONE (21:00)
[2023-05-09] MEDS: ATORVASTATIN 20 MG TAB PO SCH (22:25)
[2023-05-10] VITALS (7 sets, daily range): BP systolic 112–167; BP diastolic 48–92; PULSE 78–85; RESP 14–18; TEMP 36.8; O2SAT 95–100
[2023-05-10] MEDS: MORPHINE SULFATE INJ 2 MG/ml SYRG IV PRN (04:34)
[2023-05-10] MEDS: LEVOTHYROXINE SODIUM 50 MCG TAB PO SCH (06:12)
[2023-05-10] MEDS: SUCRALFATE 1 GM/10 ML ORAL SUSP PO SCH ×4 (06:12→21:54)
[2023-05-10] MEDS: NYSTATIN (MOUTH-THROAT) 500,000 UNITS/5 ML SUSP MT SCH ×4 (06:12→21:54)
[2023-05-10] MEDS: ACCU-CHEK COMFORT CURVE STRIP VI SCH ×4 (06:13→21:58)
[2023-05-10] MEDS: InsuLIN REG 1unit/0.01ml Soln (100units/ml) SC SCH ×4 (06:13→21:52)
[2023-05-10] MEDS: LINEZOLID 600MG TABLET PO SCH ×2 (10:00→11:28)
[2023-05-10] MEDS: HEPARIN SODIUM (PORCINE) 5000 UNITS/ML 1ML VIAL SC SCH ×2 (10:00→21:53)
[2023-05-10] MEDS: Pro-Stat SF 30ml Vanilla PO SCH (10:00)
[2023-05-10] MEDS: amLODIPine BESYLATE 5 MG TAB PO SCH ×2 (10:00→16:29)
[2023-05-10] MEDS: SODIUM CHLOR 0.9% PF (SALINE LOCK) 10ML VIAL/SYR IV SCH ×2 (10:17→21:53)
[2023-05-10] MEDS: FAMOTIDINE (10MG/ML) 2ML VL IV SCH (10:30)
[2023-05-10] MEDS: PANTOPRAZOLE 40 MG/10 ML VIAL INJ IV SCH (10:30)
[2023-05-10] MEDS: ASPirin 81 mg TAB PO SCH (10:31)
[2023-05-10] MEDS: B-COMPLEX W/ C & FOLIC ACID(NEPHROVITE TAB) PO SCH (10:31)
[2023-05-10] MEDS: CARVEDILOL 3.125 MG TAB PO SCH ×2 (10:33→21:55)
[2023-05-10] MEDS: PIPERACILLIN-TAZOB 2.25GM 50 ML IV SCH (10:36)
[2023-05-10 12:00] LABS: Basophils # (auto) 0.1 10 ^3/uL (0-0.2); Basophils % (auto) 0.8 % (0.0-2.0); Eosinophils # (auto) 0.6 10 ^3/uL (0-0.8); Eosinophils % (auto) 5.1 % (0.0-7.0); Hematocrit 27.7 % (41.0-53.0); Hemoglobin 8.8 g/dL (13.5-17.5); Lymphocytes # (auto) 1.2 10 ^3/uL (0.4-5.4); Mean Corpuscular Hemoglobin 28.1 pg (28.0-32.0); Mean Corpuscular Hgb Conc. 31.7 g/dL (32.0-36.0); Mean Corpuscular Volume 88.7 fL (80.0-100.0); Monocytes # (auto) 1.7 10 ^3/uL (0-1.3); Monocytes % (auto) 13.9 % (0.0-12.0); Neutrophils # (auto) 8.4 10 ^3/uL (1.6-8.6); Neutrophils % (auto) 70.2 % (37.0-80.0); Nucleated Red Blood Cells % 0.2 %; Red Blood Cells 3.13 10^6/uL (4.5-5.90); Red Cell Distribution Width 17.6 % (11.8-14.3); White Blood Cell 11.9 10^3/uL (4.4-10.8)
[2023-05-10 12:11] LABS: Chloride 102 mmol/L (98-107); Potassium 3.5 mmol/L (3.5-5.1); Sodium 134 mmol/L (136-145)
[2023-05-10 12:12] LABS: Anion Gap 5 (5-15); Calcium 8.2 mg/dL (8.7-10.4); Carbon Dioxide 27 mmol/L (20-30)
[2023-05-10 12:17] LABS: BUN/Creatinine Ratio 3.4 (10.0-20.0); Blood Urea Nitrogen 7 mg/dL (9-23); Glucose 145 mg/dL (74-106)
[2023-05-10] MEDS ORDERED: VANCOMYCIN PER PHARMACY 0 MG IV SCH (17:00)
[2023-05-10] MEDS ORDERED: VANCOMYCIN 750mg/250ml 250 ML IV ONE (18:00)
[2023-05-10] MEDS: hydrALAZINE HCL 20 MG/ML VL IV PRN (18:11)
[2023-05-10] MEDS: ATORVASTATIN 20 MG TAB PO SCH (21:56)
[2023-05-11] VITALS (8 sets, daily range): BP systolic 132–154; BP diastolic 50–89; PULSE 79–93; RESP 14–22; TEMP 36.8; O2SAT 94–100
[2023-05-11] MEDS: SUCRALFATE 1 GM/10 ML ORAL SUSP PO SCH ×4 (05:42→21:49)
[2023-05-11] MEDS: NYSTATIN (MOUTH-THROAT) 500,000 UNITS/5 ML SUSP MT SCH ×4 (05:42→21:49)
[2023-05-11] MEDS: LEVOTHYROXINE SODIUM 50 MCG TAB PO SCH (05:43)
[2023-05-11] MEDS: ACCU-CHEK COMFORT CURVE STRIP VI SCH ×4 (05:43→21:54)
[2023-05-11] MEDS: InsuLIN REG 1unit/0.01ml Soln (100units/ml) SC SCH ×4 (05:43→21:54)
[2023-05-11] MEDS ORDERED: SODIUM CHL 0.9% 1000 ML BAG XX ONE (07:00)
[2023-05-11 07:34] LABS: Hematocrit 27.2 % (41.0-53.0); Hemoglobin 8.6 g/dL (13.5-17.5); Mean Corpuscular Hemoglobin 27.7 pg (28.0-32.0); Mean Corpuscular Hgb Conc. 31.6 g/dL (32.0-36.0); Mean Corpuscular Volume 87.7 fL (80.0-100.0); Red Cell Distribution Width 17.7 % (11.8-14.3); White Blood Cell 11.6 10^3/uL (4.4-10.8)
[2023-05-11 07:40] LABS: Basophils % (manual) 0 (0.0-2.0); Blast Cells 0; Myelocytes % 0; Promyelocytes % 0; Reactive Lymphocytes 0
[2023-05-11 07:51] LABS: Alanine Aminotransferase < 9 U/L (7-40); Albumin 3.1 g/dL (3.2-4.8); Alkaline Phosphatase 171 U/L (46-116); Anion Gap 7 (5-15); Aspartate Aminotransferase 9 U/L (13-40); BUN/Creatinine Ratio 4.2 (10.0-20.0); Bilirubin, Total 0.6 mg/dL (0.2-1.0); Blood Urea Nitrogen 10 mg/dL (9-23); Carbon Dioxide 26 mmol/L (20-30); Chloride 103 mmol/L (98-107); Glucose 95 mg/dL (74-106); Potassium 3.4 mmol/L (3.5-5.1); Sodium 136 mmol/L (136-145); Total Protein 6.8 g/dL (5.7-8.2)
[2023-05-11 08:48] LABS: Anisocytosis Slight; Band Neutrophils % (manual) 8; Eosinophils % (manual) 5 (0-7); Lymphocytes % (manual) 9 (10.0-50.0); Metamyelocytes % 1; Monocytes % (manual) 15 (0-12)
[2023-05-11 08:49] LABS: Hypochromia Slight; Platelet Estimate Adequate; Polychromasia Slight
[2023-05-11] MEDS: HEPARIN 1,000 UNITS/ml 1ML VIAL XX SCH (10:00)
[2023-05-11] MEDS: Pro-Stat SF 30ml Vanilla PO SCH (10:00)
[2023-05-11] MEDS ORDERED: HEPARIN SODIUM (PORCINE) 5000 UNITS/ML 1ML VIAL ONE (10:52)
[2023-05-11] MEDS: ASPirin 81 mg TAB PO SCH (11:01)
[2023-05-11] MEDS: CARVEDILOL 3.125 MG TAB PO SCH ×2 (11:05→21:51)
[2023-05-11] MEDS: amLODIPine BESYLATE 5 MG TAB PO SCH (11:07)
[2023-05-11] MEDS: B-COMPLEX W/ C & FOLIC ACID(NEPHROVITE TAB) PO SCH (11:10)
[2023-05-11] MEDS: HEPARIN SODIUM (PORCINE) 5000 UNITS/ML 1ML VIAL SC SCH ×2 (11:14→21:53)
[2023-05-11] MEDS: SODIUM CHLOR 0.9% PF (SALINE LOCK) 10ML VIAL/SYR IV SCH ×2 (11:54→21:49)
[2023-05-11] MEDS: PANTOPRAZOLE 40 MG/10 ML VIAL INJ IV SCH (11:57)
[2023-05-11] MEDS ORDERED: VANCOMYCIN 750mg/250ml 250 ML IV ONE (17:00)
[2023-05-11] MEDS: MORPHINE SULFATE INJ 2 MG/ml SYRG IV PRN (17:23)
[2023-05-11] MEDS ORDERED: EPOETIN ALFA-EPBX 10,000 UNIT/1ML VIAL SC ONE (21:00)
[2023-05-11] MEDS: ATORVASTATIN 20 MG TAB PO SCH (21:50)
[2023-05-12] VITALS (7 sets, daily range): BP systolic 128–151; BP diastolic 48–71; PULSE 75–79; RESP 17–20; TEMP 97.7–98.8; O2SAT 98–100
[2023-05-12 04:24] LABS: Basophils # (auto) 0.1 10 ^3/uL (0-0.2); Basophils % (auto) 0.9 % (0.0-2.0); Eosinophils # (auto) 0.4 10 ^3/uL (0-0.8); Eosinophils % (auto) 3.8 % (0.0-7.0); Hematocrit 26.3 % (41.0-53.0); Hemoglobin 8.5 g/dL (13.5-17.5); Lymphocytes # (auto) 1.1 10 ^3/uL (0.4-5.4); Lymphocytes % (auto) 10.8 % (10.0-50.0); Mean Corpuscular Hemoglobin 28.2 pg (28.0-32.0); Mean Corpuscular Hgb Conc. 32.5 g/dL (32.0-36.0); Mean Corpuscular Volume 86.7 fL (80.0-100.0); Monocytes # (auto) 1.5 10 ^3/uL (0-1.3); Monocytes % (auto) 14.3 % (0.0-12.0); Neutrophils # (auto) 7.2 10 ^3/uL (1.6-8.6); Neutrophils % (auto) 70.2 % (37.0-80.0); Nucleated Red Blood Cells % 0.1 %; Red Blood Cells 3.03 10^6/uL (4.5-5.90); Red Cell Distribution Width 18.2 % (11.8-14.3); White Blood Cell 10.2 10^3/uL (4.4-10.8)
[2023-05-12 04:39] LABS: Alkaline Phosphatase 176 U/L (46-116); Anion Gap 5 (5-15); Aspartate Aminotransferase < 8 U/L (13-40); BUN/Creatinine Ratio 3.2 (10.0-20.0); Bilirubin, Total 0.6 mg/dL (0.2-1.0); Blood Urea Nitrogen 6 mg/dL (9-23); Carbon Dioxide 28 mmol/L (20-30); Chloride 103 mmol/L (98-107); Glucose 94 mg/dL (74-106); Potassium 3.1 mmol/L (3.5-5.1); Sodium 136 mmol/L (136-145); Total Protein 6.8 g/dL (5.7-8.2)
[2023-05-12 05:45] LABS: Alanine Aminotransferase < 9 U/L (7-40)
[2023-05-12] MEDS: InsuLIN REG 1unit/0.01ml Soln (100units/ml) SC SCH ×4 (06:24→21:10)
[2023-05-12] MEDS: LEVOTHYROXINE SODIUM 50 MCG TAB PO SCH (06:46)
[2023-05-12] MEDS: ACCU-CHEK COMFORT CURVE STRIP VI SCH ×4 (06:46→21:11)
[2023-05-12] MEDS: NYSTATIN (MOUTH-THROAT) 500,000 UNITS/5 ML SUSP MT SCH ×4 (06:46→21:09)
[2023-05-12] MEDS: SUCRALFATE 1 GM/10 ML ORAL SUSP PO SCH ×4 (06:46→21:09)
[2023-05-12] MEDS: MORPHINE SULFATE INJ 2 MG/ml SYRG IV PRN ×2 (08:13→20:53)
[2023-05-12] MEDS: Pro-Stat SF 30ml Vanilla PO SCH (10:00)
[2023-05-12] MEDS: PANTOPRAZOLE 40 MG/10 ML VIAL INJ IV SCH (10:37)
[2023-05-12] MEDS: amLODIPine BESYLATE 5 MG TAB PO SCH (10:41)
[2023-05-12] MEDS: ASPirin 81 mg TAB PO SCH (10:42)
[2023-05-12] MEDS: SODIUM CHLOR 0.9% PF (SALINE LOCK) 10ML VIAL/SYR IV SCH ×2 (10:42→21:10)
[2023-05-12] MEDS: CARVEDILOL 3.125 MG TAB PO SCH ×2 (10:42→21:10)
[2023-05-12] MEDS: B-COMPLEX W/ C & FOLIC ACID(NEPHROVITE TAB) PO SCH (10:42)
[2023-05-12] MEDS: HEPARIN SODIUM (PORCINE) 5000 UNITS/ML 1ML VIAL SC SCH ×2 (11:00→21:12)
[2023-05-12] MEDS ORDERED: POTASSIUM CHL 20 Meq TABLET PO ONE (11:15)
[2023-05-12] MEDS ORDERED: POTASSIUM EFFERVESENT TAB 25 MEQ PO ONE (12:00)
[2023-05-12] MEDS: ATORVASTATIN 20 MG TAB PO SCH (21:09)
[2023-05-13] VITALS (7 sets, daily range): BP systolic 126–154; BP diastolic 45–69; PULSE 72–83; RESP 17–22; TEMP 97.6–98.5; O2SAT 99–100
[2023-05-13] MEDS: SUCRALFATE 1 GM/10 ML ORAL SUSP PO SCH ×4 (06:13→22:46)
[2023-05-13] MEDS: LEVOTHYROXINE SODIUM 50 MCG TAB PO SCH (06:13)
[2023-05-13] MEDS: NYSTATIN (MOUTH-THROAT) 500,000 UNITS/5 ML SUSP MT SCH ×4 (06:13→22:46)
[2023-05-13] MEDS: hydrALAZINE HCL 20 MG/ML VL IV PRN (06:14)
[2023-05-13] MEDS: InsuLIN REG 1unit/0.01ml Soln (100units/ml) SC SCH ×4 (06:14→22:00)
[2023-05-13] MEDS: ACCU-CHEK COMFORT CURVE STRIP VI SCH ×4 (06:15→22:49)
[2023-05-13] MEDS: SODIUM CHLOR 0.9% PF (SALINE LOCK) 10ML VIAL/SYR IV SCH ×2 (09:47→22:47)
[2023-05-13] MEDS: PANTOPRAZOLE 40 MG/10 ML VIAL INJ IV SCH (09:47)
[2023-05-13] MEDS: CARVEDILOL 3.125 MG TAB PO SCH ×2 (09:48→22:47)
[2023-05-13] MEDS: B-COMPLEX W/ C & FOLIC ACID(NEPHROVITE TAB) PO SCH (09:49)
[2023-05-13] MEDS: ASPirin 81 mg TAB PO SCH (09:49)
[2023-05-13] MEDS: amLODIPine BESYLATE 5 MG TAB PO SCH (09:49)
[2023-05-13] MEDS: HEPARIN SODIUM (PORCINE) 5000 UNITS/ML 1ML VIAL SC SCH ×2 (09:51→22:48)
[2023-05-13] MEDS: Pro-Stat SF 30ml Vanilla PO SCH (09:57)
[2023-05-13] MEDS: MORPHINE SULFATE INJ 2 MG/ml SYRG IV PRN ×2 (11:28→22:47)
[2023-05-13] MEDS: ATORVASTATIN 20 MG TAB PO SCH (22:46)
[2023-05-14] VITALS (7 sets, daily range): BP systolic 135–161; BP diastolic 43–54; PULSE 65–76; RESP 17–20; TEMP 98–98.2; O2SAT 99–100
[2023-05-14] MEDS: SUCRALFATE 1 GM/10 ML ORAL SUSP PO SCH ×4 (06:28→21:37)
[2023-05-14] MEDS: NYSTATIN (MOUTH-THROAT) 500,000 UNITS/5 ML SUSP MT SCH ×4 (06:28→21:35)
[2023-05-14] MEDS: LEVOTHYROXINE SODIUM 50 MCG TAB PO SCH (06:28)
[2023-05-14] MEDS: MORPHINE SULFATE INJ 2 MG/ml SYRG IV PRN (06:29)
[2023-05-14] MEDS: InsuLIN REG 1unit/0.01ml Soln (100units/ml) SC SCH ×4 (06:46→21:57)
[2023-05-14] MEDS: ACCU-CHEK COMFORT CURVE STRIP VI SCH ×4 (06:46→21:57)
[2023-05-14] MEDS: ASPirin 81 mg TAB PO SCH (09:50)
[2023-05-14] MEDS: PANTOPRAZOLE 40 MG/10 ML VIAL INJ IV SCH (09:50)
[2023-05-14] MEDS: B-COMPLEX W/ C & FOLIC ACID(NEPHROVITE TAB) PO SCH (09:50)
[2023-05-14] MEDS: amLODIPine BESYLATE 5 MG TAB PO SCH (09:53)
[2023-05-14] MEDS: CARVEDILOL 3.125 MG TAB PO SCH ×2 (09:53→21:38)
[2023-05-14] MEDS: HEPARIN SODIUM (PORCINE) 5000 UNITS/ML 1ML VIAL SC SCH ×2 (09:54→21:43)
[2023-05-14] MEDS: HEPARIN 1,000 UNITS/ml 1ML VIAL XX SCH (10:00)
[2023-05-14] MEDS: Pro-Stat SF 30ml Vanilla PO SCH (10:17)
[2023-05-14] MEDS: SODIUM CHLOR 0.9% PF (SALINE LOCK) 10ML VIAL/SYR IV SCH ×2 (10:17→21:49)
[2023-05-14] MEDS ORDERED: FUROSEMIDE 40 MG/4 ML VIAL IV ONE (15:00)
[2023-05-14] MEDS: ACETAMINOPHEN 325 MG TAB PO PRN (16:44)
[2023-05-14] MEDS ORDERED: VANCOMYCIN 1GM/250ML 250 ML IV ONE (17:00)
[2023-05-14] MEDS: ATORVASTATIN 20 MG TAB PO SCH (21:38)
[2023-05-15] VITALS (7 sets, daily range): BP systolic 128–161; BP diastolic 50–78; PULSE 74–84; RESP 18–22; TEMP 97.3–100; O2SAT 99–100
[2023-05-15] MEDS: NYSTATIN (MOUTH-THROAT) 500,000 UNITS/5 ML SUSP MT SCH ×3 (06:36→22:00)
[2023-05-15] MEDS: SUCRALFATE 1 GM/10 ML ORAL SUSP PO SCH ×4 (06:37→22:27)
[2023-05-15] MEDS: LEVOTHYROXINE SODIUM 50 MCG TAB PO SCH (06:37)
[2023-05-15] MEDS: InsuLIN REG 1unit/0.01ml Soln (100units/ml) SC SCH ×4 (06:39→22:00)
[2023-05-15] MEDS: ACCU-CHEK COMFORT CURVE STRIP VI SCH ×4 (06:39→22:40)
[2023-05-15] MEDS: hydrALAZINE HCL 20 MG/ML VL IV PRN (07:00)
[2023-05-15] MEDS ORDERED: ALBUMIN 25% 100 ML IV ONE ×2 (09:45)
[2023-05-15] MEDS: FUROSEMIDE 40 MG/4 ML VIAL IV SCH (09:58)
[2023-05-15] MEDS: ASPirin 81 mg TAB PO SCH (09:58)
[2023-05-15] MEDS: SODIUM CHLOR 0.9% PF (SALINE LOCK) 10ML VIAL/SYR IV SCH ×2 (09:58→22:40)
[2023-05-15] MEDS: CARVEDILOL 3.125 MG TAB PO SCH ×2 (09:58→22:27)
[2023-05-15] MEDS: PANTOPRAZOLE 40 MG/10 ML VIAL INJ IV SCH (09:58)
[2023-05-15] MEDS: B-COMPLEX W/ C & FOLIC ACID(NEPHROVITE TAB) PO SCH (09:59)
[2023-05-15] MEDS: amLODIPine BESYLATE 5 MG TAB PO SCH (09:59)
[2023-05-15] MEDS: HEPARIN SODIUM (PORCINE) 5000 UNITS/ML 1ML VIAL SC SCH ×2 (09:59→22:33)
[2023-05-15] MEDS: Pro-Stat SF 30ml Vanilla PO SCH (09:59)
[2023-05-15] MEDS: ACETAMINOPHEN 325 MG TAB PO PRN ×2 (13:49→22:24)
[2023-05-15] MEDS ORDERED: VANCOMYCIN 1GM/250ML 250 ML IV ONE (16:00)
[2023-05-15] MEDS: ATORVASTATIN 20 MG TAB PO SCH (22:27)
[2023-05-16] VITALS (7 sets, daily range): BP systolic 135–145; BP diastolic 62–67; PULSE 72–79; RESP 17–22; TEMP 98.5–98.9; O2SAT 100
[2023-05-16] MEDS: SUCRALFATE 1 GM/10 ML ORAL SUSP PO SCH ×4 (05:47→21:18)
[2023-05-16] MEDS: NYSTATIN (MOUTH-THROAT) 500,000 UNITS/5 ML SUSP MT SCH ×4 (05:47→21:18)
[2023-05-16] MEDS: LEVOTHYROXINE SODIUM 50 MCG TAB PO SCH (05:48)
[2023-05-16] MEDS: SODIUM CHLOR 0.9% PF (SALINE LOCK) 10ML VIAL/SYR IV SCH ×2 (05:50→21:23)
[2023-05-16] MEDS: InsuLIN REG 1unit/0.01ml Soln (100units/ml) SC SCH ×4 (05:56→21:26)
[2023-05-16] MEDS: ACCU-CHEK COMFORT CURVE STRIP VI SCH ×4 (05:58→21:22)
[2023-05-16] MEDS: PANTOPRAZOLE 40 MG/10 ML VIAL INJ IV SCH (09:57)
[2023-05-16] MEDS: ASPirin 81 mg TAB PO SCH (09:57)
[2023-05-16] MEDS: B-COMPLEX W/ C & FOLIC ACID(NEPHROVITE TAB) PO SCH (09:57)
[2023-05-16] MEDS: CARVEDILOL 3.125 MG TAB PO SCH ×2 (09:58→21:17)
[2023-05-16] MEDS: amLODIPine BESYLATE 5 MG TAB PO SCH (09:58)
[2023-05-16] MEDS: Pro-Stat SF 30ml Vanilla PO SCH (09:59)
[2023-05-16] MEDS: FUROSEMIDE 40 MG/4 ML VIAL IV SCH (09:59)
[2023-05-16] MEDS: HEPARIN 1,000 UNITS/ml 1ML VIAL XX SCH (10:00)
[2023-05-16] MEDS: HEPARIN SODIUM (PORCINE) 5000 UNITS/ML 1ML VIAL SC SCH ×2 (10:03→21:22)
[2023-05-16 10:19] LABS: Basophils # (auto) 0.1 10 ^3/uL (0-0.2); Eosinophils # (auto) 0.5 10 ^3/uL (0-0.8); Hemoglobin 9.1 g/dL (13.5-17.5); Lymphocytes # (auto) 0.9 10 ^3/uL (0.4-5.4); Monocytes % (auto) 6.9 % (0.0-12.0)
[2023-05-16 10:20] LABS: Basophils % (auto) 0.8 % (0.0-2.0); Eosinophils % (auto) 3.5 % (0.0-7.0); Lymphocytes % (auto) 6.7 % (10.0-50.0); Mean Corpuscular Hemoglobin 27.5 pg (28.0-32.0); Mean Corpuscular Hgb Conc. 31.2 g/dL (32.0-36.0); Mean Corpuscular Volume 88.1 fL (80.0-100.0); Neutrophils # (auto) 11.7 10 ^3/uL (1.6-8.6); Neutrophils % (auto) 82.1 % (37.0-80.0); Nucleated Red Blood Cells % 0.1 %; Red Blood Cells 3.29 10^6/uL (4.5-5.90); Red Cell Distribution Width 18.7 % (11.8-14.3); White Blood Cell 14.3 10^3/uL (4.4-10.8)
[2023-05-16 10:31] LABS: Chloride 102 mmol/L (98-107); Potassium 3.2 mmol/L (3.5-5.1); Sodium 138 mmol/L (136-145)
[2023-05-16 10:32] LABS: Anion Gap 8 (5-15); Carbon Dioxide 28 mmol/L (20-30)
[2023-05-16 10:33] LABS: Calcium 8.7 mg/dL (8.5-10.1)
[2023-05-16 10:37] LABS: BUN/Creatinine Ratio 2.9 (10.0-20.0); Blood Urea Nitrogen 8 mg/dL (9-23); Glucose 122 mg/dL (74-106)
[2023-05-16] MEDS: ATORVASTATIN 20 MG TAB PO SCH (21:17)
[2023-05-16] MEDS: ACETAMINOPHEN 325 MG TAB PO PRN (21:17)
[2023-05-17] VITALS (7 sets, daily range): BP systolic 105–159; BP diastolic 61–82; PULSE 70–80; RESP 17–19; TEMP 98–98.7; O2SAT 99–100
[2023-05-17] MEDS: SUCRALFATE 1 GM/10 ML ORAL SUSP PO SCH ×4 (06:27→22:23)
[2023-05-17] MEDS: NYSTATIN (MOUTH-THROAT) 500,000 UNITS/5 ML SUSP MT SCH ×4 (06:27→22:23)
[2023-05-17] MEDS: ACCU-CHEK COMFORT CURVE STRIP VI SCH ×4 (06:28→22:25)
[2023-05-17] MEDS: LEVOTHYROXINE SODIUM 50 MCG TAB PO SCH (06:28)
[2023-05-17] MEDS: InsuLIN REG 1unit/0.01ml Soln (100units/ml) SC SCH ×4 (06:36→22:00)
[2023-05-17] MEDS: CARVEDILOL 3.125 MG TAB PO SCH ×2 (10:00→22:25)
[2023-05-17] MEDS: amLODIPine BESYLATE 5 MG TAB PO SCH (10:00)
[2023-05-17] MEDS: FUROSEMIDE 40 MG/4 ML VIAL IV SCH (10:00)
[2023-05-17] MEDS: ASPirin 81 mg TAB PO SCH (10:18)
[2023-05-17] MEDS: B-COMPLEX W/ C & FOLIC ACID(NEPHROVITE TAB) PO SCH (10:18)
[2023-05-17] MEDS: PANTOPRAZOLE 40 MG/10 ML VIAL INJ IV SCH (10:18)
[2023-05-17] MEDS: SODIUM CHLOR 0.9% PF (SALINE LOCK) 10ML VIAL/SYR IV SCH ×2 (10:19→22:00)
[2023-05-17] MEDS: Pro-Stat SF 30ml Vanilla PO SCH (10:20)
[2023-05-17] MEDS: HEPARIN SODIUM (PORCINE) 5000 UNITS/ML 1ML VIAL SC SCH ×2 (10:24→22:23)
[2023-05-17] MEDS: ACETAMINOPHEN 325 MG TAB PO PRN ×2 (11:16→20:54)
[2023-05-17] MEDS ORDERED: VANCOMYCIN 1GM/250ML 250 ML IV ONE (12:00)
[2023-05-17] MEDS: hydrALAZINE HCL 20 MG/ML VL IV PRN (16:29)
[2023-05-17] MEDS ORDERED: EPOETIN ALFA-EPBX 4,000 UNIT/ML VIAL SC ONE (21:00)
[2023-05-17] MEDS: ATORVASTATIN 20 MG TAB PO SCH (22:25)
[2023-05-18] VITALS (7 sets, daily range): BP systolic 116–164; BP diastolic 53–81; PULSE 61–88; RESP 15–20; TEMP 98–98.9; O2SAT 93–100
[2023-05-18] MEDS: hydrALAZINE HCL 20 MG/ML VL IV PRN (04:46)
[2023-05-18] MEDS: NYSTATIN (MOUTH-THROAT) 500,000 UNITS/5 ML SUSP MT SCH ×4 (05:55→22:40)
[2023-05-18] MEDS: SUCRALFATE 1 GM/10 ML ORAL SUSP PO SCH ×4 (05:58→22:40)
[2023-05-18] MEDS: LEVOTHYROXINE SODIUM 50 MCG TAB PO SCH (05:58)
[2023-05-18] MEDS: InsuLIN REG 1unit/0.01ml Soln (100units/ml) SC SCH ×4 (05:59→22:00)
[2023-05-18] MEDS: ACCU-CHEK COMFORT CURVE STRIP VI SCH ×4 (05:59→22:40)
[2023-05-18] MEDS: HEPARIN 1,000 UNITS/ml 1ML VIAL XX SCH (10:00)
[2023-05-18] MEDS: B-COMPLEX W/ C & FOLIC ACID(NEPHROVITE TAB) PO SCH (10:01)
[2023-05-18] MEDS: CARVEDILOL 3.125 MG TAB PO SCH ×2 (10:01→22:39)
[2023-05-18] MEDS: ASPirin 81 mg TAB PO SCH (10:01)
[2023-05-18] MEDS: amLODIPine BESYLATE 5 MG TAB PO SCH (10:01)
[2023-05-18] MEDS: SODIUM CHLOR 0.9% PF (SALINE LOCK) 10ML VIAL/SYR IV SCH ×2 (10:02→22:39)
[2023-05-18] MEDS: PANTOPRAZOLE 40 MG/10 ML VIAL INJ IV SCH (10:02)
[2023-05-18] MEDS: FUROSEMIDE 40 MG/4 ML VIAL IV SCH (10:02)
[2023-05-18] MEDS: HEPARIN SODIUM (PORCINE) 5000 UNITS/ML 1ML VIAL SC SCH ×2 (10:06→22:38)
[2023-05-18] MEDS: Pro-Stat SF 30ml Vanilla PO SCH (10:06)
[2023-05-18] MEDS: ATORVASTATIN 20 MG TAB PO SCH (22:39)
[2023-05-19] VITALS (8 sets, daily range): BP systolic 110–165; BP diastolic 46–74; PULSE 78–92; RESP 12–19; TEMP 97.6–99; O2SAT 96–100
[2023-05-19] MEDS: NYSTATIN (MOUTH-THROAT) 500,000 UNITS/5 ML SUSP MT SCH ×4 (05:33→22:02)
[2023-05-19] MEDS: LEVOTHYROXINE SODIUM 50 MCG TAB PO SCH (06:10)
[2023-05-19] MEDS: InsuLIN REG 1unit/0.01ml Soln (100units/ml) SC SCH ×4 (06:10→22:00)
[2023-05-19] MEDS: SUCRALFATE 1 GM/10 ML ORAL SUSP PO SCH ×4 (06:10→22:02)
[2023-05-19] MEDS: ACCU-CHEK COMFORT CURVE STRIP VI SCH ×4 (06:10→22:07)
[2023-05-19] MEDS ORDERED: HEPARIN SODIUM (PORCINE) 5000 UNITS/ML 1ML VIAL ONE (10:05)
[2023-05-19] MEDS: B-COMPLEX W/ C & FOLIC ACID(NEPHROVITE TAB) PO SCH (10:13)
[2023-05-19] MEDS: ASPirin 81 mg TAB PO SCH (10:13)
[2023-05-19] MEDS: CARVEDILOL 3.125 MG TAB PO SCH ×2 (10:14→22:05)
[2023-05-19] MEDS: amLODIPine BESYLATE 5 MG TAB PO SCH (10:14)
[2023-05-19] MEDS: SODIUM CHLOR 0.9% PF (SALINE LOCK) 10ML VIAL/SYR IV SCH ×2 (10:15→22:02)
[2023-05-19] MEDS: FUROSEMIDE 40 MG/4 ML VIAL IV SCH (10:15)
[2023-05-19] MEDS: HEPARIN SODIUM (PORCINE) 5000 UNITS/ML 1ML VIAL SC SCH ×2 (10:15→22:25)
[2023-05-19] MEDS: PANTOPRAZOLE 40 MG/10 ML VIAL INJ IV SCH (10:15)
[2023-05-19] MEDS: Pro-Stat SF 30ml Vanilla PO SCH (10:15)
[2023-05-19] MEDS: ATORVASTATIN 20 MG TAB PO SCH (22:02)
[2023-05-20] VITALS (8 sets, daily range): BP systolic 138–163; BP diastolic 48–73; PULSE 76–93; RESP 14–20; TEMP 97.8–99.3; O2SAT 80–100
[2023-05-20] MEDS: NYSTATIN (MOUTH-THROAT) 500,000 UNITS/5 ML SUSP MT SCH ×4 (05:16→23:36)
[2023-05-20] MEDS: InsuLIN REG 1unit/0.01ml Soln (100units/ml) SC SCH ×4 (06:03→23:50)
[2023-05-20] MEDS: ACCU-CHEK COMFORT CURVE STRIP VI SCH ×4 (06:03→22:00)
[2023-05-20] MEDS: SUCRALFATE 1 GM/10 ML ORAL SUSP PO SCH ×4 (06:04→23:36)
[2023-05-20] MEDS: LEVOTHYROXINE SODIUM 50 MCG TAB PO SCH (06:04)
[2023-05-20] MEDS: PANTOPRAZOLE 40 MG/10 ML VIAL INJ IV SCH (09:17)
[2023-05-20] MEDS: FUROSEMIDE 40 MG/4 ML VIAL IV SCH (09:17)
[2023-05-20] MEDS: hydrALAZINE HCL 20 MG/ML VL IV PRN ×2 (09:17→17:10)
[2023-05-20] MEDS: ASPirin 81 mg TAB PO SCH (09:18)
[2023-05-20] MEDS: amLODIPine BESYLATE 5 MG TAB PO SCH (09:18)
[2023-05-20] MEDS: CARVEDILOL 3.125 MG TAB PO SCH ×2 (09:18→23:36)
[2023-05-20] MEDS: B-COMPLEX W/ C & FOLIC ACID(NEPHROVITE TAB) PO SCH (09:18)
[2023-05-20] MEDS: Pro-Stat SF 30ml Vanilla PO SCH (09:20)
[2023-05-20] MEDS: SODIUM CHLOR 0.9% PF (SALINE LOCK) 10ML VIAL/SYR IV SCH ×2 (09:20→23:51)
[2023-05-20] MEDS: HEPARIN SODIUM (PORCINE) 5000 UNITS/ML 1ML VIAL SC SCH ×2 (09:20→23:37)
[2023-05-20] MEDS: ATORVASTATIN 20 MG TAB PO SCH (23:36)
[2023-05-21] VITALS (8 sets, daily range): BP systolic 114–164; BP diastolic 51–66; PULSE 74–84; RESP 16–20; TEMP 97.7–98.7; O2SAT 98–100
[2023-05-21] MEDS: NYSTATIN (MOUTH-THROAT) 500,000 UNITS/5 ML SUSP MT SCH ×4 (05:32→22:14)
[2023-05-21] MEDS: hydrALAZINE HCL 20 MG/ML VL IV PRN (05:33)
[2023-05-21] MEDS: LEVOTHYROXINE SODIUM 50 MCG TAB PO SCH (05:36)
[2023-05-21] MEDS: SUCRALFATE 1 GM/10 ML ORAL SUSP PO SCH ×4 (05:37→22:14)
[2023-05-21] MEDS: ACCU-CHEK COMFORT CURVE STRIP VI SCH ×4 (05:37→22:00)
[2023-05-21] MEDS: InsuLIN REG 1unit/0.01ml Soln (100units/ml) SC SCH ×4 (06:22→22:14)
[2023-05-21 06:39] LABS: Alkaline Phosphatase 165 U/L (46-116); Anion Gap 8 (5-15); Aspartate Aminotransferase 13 U/L (13-40); BUN/Creatinine Ratio 5.6 (10.0-20.0); Blood Urea Nitrogen 15 mg/dL (9-23); Calcium 8.2 mg/dL (8.7-10.4); Carbon Dioxide 26 mmol/L (20-30); Chloride 100 mmol/L (98-107); Glucose 90 mg/dL (74-106); Sodium 134 mmol/L (136-145)
[2023-05-21 06:40] LABS: Bilirubin, Total 0.6 mg/dL (0.2-1.0); Phosphorus 1.8 mg/dL (2.4-5.1); Total Protein 6.6 g/dL (5.7-8.2)
[2023-05-21 06:51] LABS: Alanine Aminotransferase < 9 U/L (7-40)
[2023-05-21 06:53] LABS: Potassium 2.8 mmol/L (3.5-5.1)
[2023-05-21] MEDS ORDERED: SODIUM CHL 0.9% 1000 ML BAG XX ONE (07:00)
[2023-05-21 07:03] LABS: Basophils # (auto) 0.1 10 ^3/uL (0-0.2); Basophils % (auto) 0.8 % (0.0-2.0); Eosinophils # (auto) 0.3 10 ^3/uL (0-0.8); Eosinophils % (auto) 3.9 % (0.0-7.0); Hematocrit 27.8 % (41.0-53.0); Lymphocytes # (auto) 1.2 10 ^3/uL (0.4-5.4); Lymphocytes % (auto) 13.7 % (10.0-50.0); Mean Corpuscular Hemoglobin 28.2 pg (28.0-32.0); Mean Corpuscular Hgb Conc. 32.5 g/dL (32.0-36.0); Mean Corpuscular Volume 86.8 fL (80.0-100.0); Monocytes # (auto) 0.7 10 ^3/uL (0-1.3); Monocytes % (auto) 8.5 % (0.0-12.0); Neutrophils # (auto) 6.2 10 ^3/uL (1.6-8.6); Neutrophils % (auto) 73.1 % (37.0-80.0); Red Cell Distribution Width 18.8 % (11.8-14.3); White Blood Cell 8.4 10^3/uL (4.4-10.8)
[2023-05-21] MEDS ORDERED: POTASSIUM CHL 20 Meq TABLET PO ONE (07:15)
[2023-05-21] MEDS: SODIUM CHLOR 0.9% PF (SALINE LOCK) 10ML VIAL/SYR IV SCH ×2 (10:00→22:00)
[2023-05-21] MEDS: Pro-Stat SF 30ml Vanilla PO SCH (10:00)
[2023-05-21] MEDS: FUROSEMIDE 40 MG/4 ML VIAL IV SCH (14:40)
[2023-05-21] MEDS: HEPARIN SODIUM (PORCINE) 5000 UNITS/ML 1ML VIAL SC SCH ×2 (14:40→22:18)
[2023-05-21] MEDS: ASPirin 81 mg TAB PO SCH (14:40)
[2023-05-21] MEDS: amLODIPine BESYLATE 5 MG TAB PO SCH (14:40)
[2023-05-21] MEDS: PANTOPRAZOLE 40 MG/10 ML VIAL INJ IV SCH (14:40)
[2023-05-21] MEDS: CARVEDILOL 3.125 MG TAB PO SCH ×2 (14:40→22:15)
[2023-05-21] MEDS: B-COMPLEX W/ C & FOLIC ACID(NEPHROVITE TAB) PO SCH (14:40)
[2023-05-21 15:30] LABS: Chloride 102 mmol/L (98-107); Potassium 3.5 mmol/L (3.5-5.1); Sodium 138 mmol/L (136-145)
[2023-05-21 15:31] LABS: Anion Gap 8 (5-15); Carbon Dioxide 28 mmol/L (20-30)
[2023-05-21 15:32] LABS: Calcium 8.6 mg/dL (8.5-10.1)
[2023-05-21 15:36] LABS: Glucose 95 mg/dL (74-106)
[2023-05-21 15:46] LABS: BUN/Creatinine Ratio 3.9 (10.0-20.0); Blood Urea Nitrogen < 5 mg/dL (9-23)
[2023-05-21] MEDS ORDERED: VANCOMYCIN 750mg/250ml 250 ML IV ONE (16:00)
[2023-05-21] MEDS ORDERED: EPOETIN ALFA-EPBX 10,000 UNIT/1ML VIAL SC ONE (21:00)
[2023-05-21] MEDS: ATORVASTATIN 20 MG TAB PO SCH (22:15)
[2023-05-22 05:00] VITALS: BP 130/46; PULSE 79; RESP 17; TEMP 98.4; O2SAT 100
[2023-05-22] MEDS: InsuLIN REG 1unit/0.01ml Soln (100units/ml) SC SCH ×2 (06:25→11:30)
[2023-05-22] MEDS: ACCU-CHEK COMFORT CURVE STRIP VI SCH ×2 (06:26→12:02)
[2023-05-22] MEDS: SUCRALFATE 1 GM/10 ML ORAL SUSP PO SCH ×2 (06:39→11:40)
[2023-05-22] MEDS: LEVOTHYROXINE SODIUM 50 MCG TAB PO SCH (06:39)
[2023-05-22] MEDS: NYSTATIN (MOUTH-THROAT) 500,000 UNITS/5 ML SUSP MT SCH ×2 (06:39→12:01)
[2023-05-22 08:00] VITALS: PULSE 74
[2023-05-22 09:00] VITALS: BP 136/67; PULSE 73; RESP 16; TEMP 98.3; O2SAT 100
[2023-05-22] MEDS: Pro-Stat SF 30ml Vanilla PO SCH (10:00)
[2023-05-22] MEDS: ASPirin 81 mg TAB PO SCH (11:27)
[2023-05-22] MEDS: B-COMPLEX W/ C & FOLIC ACID(NEPHROVITE TAB) PO SCH (11:27)
[2023-05-22] MEDS: SODIUM CHLOR 0.9% PF (SALINE LOCK) 10ML VIAL/SYR IV SCH (11:28)
[2023-05-22] MEDS: CARVEDILOL 3.125 MG TAB PO SCH (11:28)
[2023-05-22] MEDS: amLODIPine BESYLATE 5 MG TAB PO SCH (11:29)
[2023-05-22] MEDS: HEPARIN SODIUM (PORCINE) 5000 UNITS/ML 1ML VIAL SC SCH (11:30)
[2023-05-22] MEDS: PANTOPRAZOLE 40 MG/10 ML VIAL INJ IV SCH (11:53)
[2023-05-22] MEDS: FUROSEMIDE 40 MG/4 ML VIAL IV SCH (11:54)
[2023-05-22 13:00] VITALS: BP 150/82; PULSE 79; RESP 16; TEMP 98; O2SAT 100
[2023-05-22 13:56] VITALS: BP 136/67; PULSE 73; TEMP 36.8
== END 2023-05-22 14:57 | DRG 720 ==
LOC: EDBD 14:09 → ER 14:09 → TELE 18:04 → TELE-EAST 05-03 21:28
PROVIDERS: ADMIT Nurse Practitioner Family; ATTEND Nurse Practitioner
PROC: 02HV33Z Insertion of Infusion Device into Superior Vena Cava, Percutaneous Approach (ICD-10-PCS; 2023-05-02)
PROC: B548ZZA Ultrasonography of Superior Vena Cava, Guidance (ICD-10-PCS; 2023-05-02)
PROC: 30233N1 Transfusion of Nonautologous Red Blood Cells into Peripheral Vein, Percutaneous Approach (ICD-10-PCS; principal; 2023-05-03)
PROC: 5A1D70Z Performance of Urinary Filtration, Intermittent, Less than 6 Hours Per Day (ICD-10-PCS; 2023-05-04)
PROC: 5A1D70Z Performance of Urinary Filtration, Intermittent, Less than 6 Hours Per Day (ICD-10-PCS; 2023-05-06)
PROC: 5A1D70Z Performance of Urinary Filtration, Intermittent, Less than 6 Hours Per Day (ICD-10-PCS; 2023-05-09)
PROC: 5A1D70Z Performance of Urinary Filtration, Intermittent, Less than 6 Hours Per Day (ICD-10-PCS; 2023-05-11)
PROC: 5A1D70Z Performance of Urinary Filtration, Intermittent, Less than 6 Hours Per Day (ICD-10-PCS; 2023-05-15)
PROC: 5A1D70Z Performance of Urinary Filtration, Intermittent, Less than 6 Hours Per Day (ICD-10-PCS; 2023-05-17)
PROC: 5A1D70Z Performance of Urinary Filtration, Intermittent, Less than 6 Hours Per Day (ICD-10-PCS; 2023-05-21)
DX: A41.9 Sepsis, unspecified organism (principal); J96.01 Acute respiratory failure with hypoxia; J86.9 Pyothorax without fistula; R65.21 Severe sepsis with septic shock; I13.2 Hypertensive heart and chronic kidney disease with heart failure and with stage 5 chronic kidney disease, or end stage renal disease; D63.1 Anemia in chronic kidney disease; I27.20 Pulmonary hypertension, unspecified; I95.3 Hypotension of hemodialysis; D69.6 Thrombocytopenia, unspecified; N18.6 End stage renal disease; J18.9 Pneumonia, unspecified organism; E11.22 Type 2 diabetes mellitus with diabetic chronic kidney disease; E11.40 Type 2 diabetes mellitus with diabetic neuropathy, unspecified; E66.01 Morbid (severe) obesity due to excess calories; E78.5 Hyperlipidemia, unspecified; Z68.41 Body mass index [BMI] 40.0-44.9, adult; Z99.2 Dependence on renal dialysis; R56.9 Unspecified convulsions; N39.0 Urinary tract infection, site not specified; M46.44 Discitis, unspecified, thoracic region; M46.24 Osteomyelitis of vertebra, thoracic region; R13.10 Dysphagia, unspecified; I50.32 Chronic diastolic (congestive) heart failure; E11.51 Type 2 diabetes mellitus with diabetic peripheral angiopathy without gangrene; E11.69 Type 2 diabetes mellitus with other specified complication; E03.9 Hypothyroidism, unspecified; I25.10 Atherosclerotic heart disease of native coronary artery without angina pectoris; Z68.29 Body mass index [BMI] 29.0-29.9, adult; Z89.512 Acquired absence of left leg below knee; Z83.3 Family history of diabetes mellitus; Z82.49 Family history of ischemic heart disease and other diseases of the circulatory system; Z79.899 Other long term (current) drug therapy; Z79.84 Long term (current) use of oral hypoglycemic drugs; Z79.4 Long term (current) use of insulin; Z79.02 Long term (current) use of antithrombotics/antiplatelets
CPT/HCPCS: 36415; 36569; 71045; 71250; 72146; 76604; 78306; 80048; 80053; 80074; 80202; 81001; 82306; 82378; 82565; 82962; 83605; 83880; 83970; 84100; 84443; 84484; 85007; 85025; 85027; 85610; 85730; 86301; 86850; 86900; 86901; 86920; 87040; 87081; 87086; 87088; 90935; 92610; 93005; 95819; 96365; 96368; 97110; 97116; 97163; 97530; 99291; C9113; G0378; J1642; J1815; J2248; J2543; J3490; J7060; P9047

== ENCOUNTER 2023-06-27 12:42 | Inpatient (IN) | payer MEDICAID ==
[~2023-06-27] VITALS: Ht 165.1 cm; Wt 78.0 kg
[2023-06-27] MEDS: InsuLIN REG 1unit/0.01ml Soln (100units/ml) SC SCH (10:46)
[2023-06-27 13:57] LABS: Hematocrit 28.9 % (41.0-53.0); Mean Corpuscular Hemoglobin 28.4 pg (28.0-32.0); Mean Corpuscular Volume 91.8 fL (80.0-100.0); Red Blood Cells 3.15 10^6/uL (4.5-5.90); Red Cell Distribution Width 19.7 % (11.8-14.3); White Blood Cell 28.7 10^3/uL (4.4-10.8)
[2023-06-27 13:59] LABS: Band Neutrophils % (manual) 0; Basophils % (manual) 0 (0.0-2.0); Blast Cells 0; Metamyelocytes % 0; Myelocytes % 0; Promyelocytes % 0; Reactive Lymphocytes 0
[2023-06-27 14:09] LABS: Alanine Aminotransferase 20 U/L (7-40); Albumin 2.3 g/dL (3.2-4.8); Alkaline Phosphatase 207 U/L (46-116); Anion Gap 5 (5-15); Aspartate Aminotransferase 18 U/L (13-40); BUN/Creatinine Ratio 21.1 (10.0-20.0); Blood Urea Nitrogen 41 mg/dL (9-23); Calcium 7.6 mg/dL (8.7-10.4); Carbon Dioxide 29 mmol/L (20-30); Chloride 100 mmol/L (98-107); Glucose 142 mg/dL (74-106); Lipase 18 U/L (12-53); Magnesium 1.6 mg/dL (1.6-2.6); Potassium 3.8 mmol/L (3.5-5.1); Sodium 134 mmol/L (136-145)
[2023-06-27 14:10] LABS: Bilirubin, Total 0.5 mg/dL (0.2-1.0); INR 1.13 (0.9-1.15); Prothrombin Time 11.8 sec (9.3-11.8); Total Protein 5.9 g/dL (5.7-8.2)
[2023-06-27 14:20] VITALS: PULSE 65; RESP 22; O2SAT 95
[2023-06-27 14:43] LABS: Eosinophils % (manual) 2 (0-7); Lymphocytes % (manual) 5 (10.0-50.0); Monocytes % (manual) 6 (0-12); Platelet Estimate Adequate
[2023-06-27] MEDS ORDERED: VANCOMYCIN 1GM/200ML 250 ML IV ONE (15:30)
[2023-06-27] MEDS ORDERED: PIPERACILLIN-TAZO 4.5GM 100 ML IV ONE (15:30)
[2023-06-27] MEDS ORDERED: MORPHINE SULFATE INJ 2 MG/ml SYRG IV PRN ×2 (17:30)
[2023-06-27] MEDS ORDERED: VANCOMYCIN PER PHARMACY 0 MG IV SCH (17:30)
[2023-06-27] MEDS ORDERED: TEMAZEPAM 15 MG CAP PO PRN (17:30)
[2023-06-27] MEDS ORDERED: DOCUSATE SOD 100 MG CAP PO PRN (17:30)
[2023-06-27] MEDS ORDERED: NITROGLYCERIN 0.4 MG SL TAB SL PRN (17:30)
[2023-06-27] MEDS ORDERED: DEXTROSE (50%) 50ML SYRG IV PRN (17:30)
[2023-06-27] MEDS ORDERED: ACETAMINOPHEN 325 MG TAB PO PRN (17:30)
[2023-06-27] MEDS ORDERED: ONDANSETRON HCL 4 MG/2 ML VIAL IV PRN (17:30)
[2023-06-27 19:40] VITALS: PULSE 72; RESP 16; O2SAT 97
[2023-06-27 21:42] VITALS: PULSE 74; RESP 16; O2SAT 95
[2023-06-27] MEDS: ASCORBIC ACID 500 MG TAB PO SCH (22:35)
[2023-06-27] MEDS: MIDODRINE HCL 10 MG TAB PO SCH (22:35)
[2023-06-27] MEDS: CARVEDILOL 3.125 MG TAB PO SCH (22:36)
[2023-06-27] MEDS: ACCU-CHEK COMFORT CURVE STRIP VI SCH (22:45)
[2023-06-27] MEDS: HYDROcodone-ACET 5/325MG TAB PO PRN (22:51)
[2023-06-28] VITALS (8 sets, daily range): BP systolic 94–129; BP diastolic 12–47; PULSE 69–104; RESP 14–20; TEMP 97.5–99.1; O2SAT 90–98
[2023-06-28] MEDS: PIPERACILLIN-TAZOB 3.375GM 100 ML IV SCH ×3 (00:16→16:00)
[2023-06-28 05:35] LABS: Hematocrit 29.6 % (41.0-53.0); Hemoglobin 9.2 g/dL (13.5-17.5); Mean Corpuscular Hemoglobin 28.2 pg (28.0-32.0); Mean Corpuscular Hgb Conc. 31.1 g/dL (32.0-36.0); Mean Corpuscular Volume 90.8 fL (80.0-100.0); Red Blood Cells 3.26 10^6/uL (4.5-5.90); Red Cell Distribution Width 19.9 % (11.8-14.3); White Blood Cell 25.6 10^3/uL (4.4-10.8)
[2023-06-28 05:49] LABS: Basophils % (manual) 0 (0.0-2.0); Blast Cells 0; Metamyelocytes % 0; Myelocytes % 0; Promyelocytes % 0; Reactive Lymphocytes 0
[2023-06-28 06:01] LABS: Alanine Aminotransferase 17 U/L (7-40); Albumin 2.4 g/dL (3.2-4.8); Alkaline Phosphatase 218 U/L (46-116); Anion Gap 9 (5-15); Aspartate Aminotransferase 20 U/L (13-40); BUN/Creatinine Ratio 17.2 (10.0-20.0); Bilirubin, Total 0.5 mg/dL (0.2-1.0); Blood Urea Nitrogen 35 mg/dL (9-23); Calcium 7.8 mg/dL (8.7-10.4); Carbon Dioxide 25 mmol/L (20-30); Chloride 100 mmol/L (98-107); Glucose 78 mg/dL (74-106); Potassium 3.8 mmol/L (3.5-5.1); Sodium 134 mmol/L (136-145); Total Protein 6.1 g/dL (5.7-8.2)
[2023-06-28] MEDS: InsuLIN REG 1unit/0.01ml Soln (100units/ml) SC SCH ×4 (06:19→22:00)
[2023-06-28] MEDS: ACCU-CHEK COMFORT CURVE STRIP VI SCH ×4 (06:19→21:08)
[2023-06-28] MEDS: HYDROcodone-ACET 5/325MG TAB PO PRN ×2 (06:30→21:04)
[2023-06-28 06:41] LABS: Anisocytosis Slight; Band Neutrophils % (manual) 5; Eosinophils % (manual) 1 (0-7); Lymphocytes % (manual) 6 (10.0-50.0); Monocytes % (manual) 2 (0-12); Platelet Estimate Adequate; Stomatocytes Few
[2023-06-28] MEDS: MIDODRINE HCL 10 MG TAB PO SCH ×4 (09:08→22:31)
[2023-06-28] MEDS: ASCORBIC ACID 500 MG TAB PO SCH ×2 (09:12→22:31)
[2023-06-28] MEDS: MULTIPLE VITAMIN TAB PO SCH (09:12)
[2023-06-28] MEDS: CARVEDILOL 3.125 MG TAB PO SCH ×2 (09:12→22:00)
[2023-06-28] MEDS: CLOPIDOGREL BISULFATE 75 MG TAB PO SCH (09:12)
[2023-06-28] MEDS: PANTOPRAZOLE 40 MG TAB PO SCH (09:13)
[2023-06-28] MEDS: LEVOTHYROXINE SODIUM 50 MCG TAB PO SCH (09:13)
[2023-06-28] MEDS: ZINC SULFATE 220mg CAP or TAB PO SCH (09:13)
[2023-06-28] MEDS: ATORVASTATIN 20 MG TAB PO SCH (09:13)
[2023-06-28] MEDS ORDERED: VANCOMYCIN 1GM/200ML 250 ML IV ONE ×2 (10:45→20:00)
[2023-06-28] MEDS ORDERED: SODIUM CHL 0.9% 1000 ML BAG XX ONE (12:15)
[2023-06-28] MEDS ORDERED: IOHEXOL 300 MG/ML 100ML BOTTLE IJ ONE ×2 (12:21→14:06)
[2023-06-28] MEDS ORDERED: ALBUMIN 25% 100 ML IV SCH (15:30)
[2023-06-28] MEDS ORDERED: ALBUMIN 25% 100 ML IV ONE (15:58)
[2023-06-28] MEDS ORDERED: EPOETIN ALFA-EPBX 10,000 UNIT/1ML VIAL SC ONE (21:00)
[2023-06-28] MEDS ORDERED: EPOETIN ALFA-EPBX 10,000 UNIT/1ML VIAL IV ONE (21:00)
[2023-06-29] VITALS (8 sets, daily range): BP systolic 91–109; BP diastolic 10–52; PULSE 72–89; RESP 16–76; TEMP 97.4–98.2; O2SAT 89–94
[2023-06-29] MEDS: HYDROcodone-ACET 5/325MG TAB PO PRN ×3 (01:30→23:51)
[2023-06-29] MEDS: PIPERACILLIN-TAZOB 3.375GM 100 ML IV SCH ×3 (03:06→17:41)
[2023-06-29] MEDS: MIDODRINE HCL 10 MG TAB PO SCH ×3 (05:44→21:30)
[2023-06-29] MEDS: InsuLIN REG 1unit/0.01ml Soln (100units/ml) SC SCH ×4 (06:19→21:42)
[2023-06-29] MEDS: ACCU-CHEK COMFORT CURVE STRIP VI SCH ×4 (06:20→21:32)
[2023-06-29] MEDS: LEVOTHYROXINE SODIUM 50 MCG TAB PO SCH (09:55)
[2023-06-29] MEDS: ASCORBIC ACID 500 MG TAB PO SCH ×2 (09:55→21:30)
[2023-06-29] MEDS: ZINC SULFATE 220mg CAP or TAB PO SCH (09:55)
[2023-06-29] MEDS: CLOPIDOGREL BISULFATE 75 MG TAB PO SCH (09:55)
[2023-06-29] MEDS: PANTOPRAZOLE 40 MG TAB PO SCH (09:55)
[2023-06-29] MEDS: ATORVASTATIN 20 MG TAB PO SCH (09:55)
[2023-06-29] MEDS: CARVEDILOL 3.125 MG TAB PO SCH ×2 (11:45→21:39)
[2023-06-29] MEDS: MULTIPLE VITAMIN TAB PO SCH (16:17)
[2023-06-29] MEDS ORDERED: VANCOMYCIN 1GM/200ML 250 ML IV ONE (20:00)
[2023-06-29] MEDS ORDERED: VANCOMYCIN 750mg/250ml 250 ML IV ONE (20:00)
[2023-06-29] MEDS: ALBUMIN 25% 100 ML IV SCH (23:52)
[2023-06-30] VITALS (94 sets, daily range): BP systolic 95–130; BP diastolic 47–102; PULSE 61–78; RESP 11–20; TEMP 97–98.3; O2SAT 91–100
[2023-06-30] MEDS: PIPERACILLIN-TAZOB 3.375GM 100 ML IV SCH ×3 (00:42→17:10)
[2023-06-30] MEDS ORDERED: ETOMIDATE (2MG/ML) 20ML VIAL IV ONE (01:56)
[2023-06-30] MEDS ORDERED: SUCCINYLCHOLINE CHLORIDE 20 MG/ML 10ML VIAL IV ONE (01:58)
[2023-06-30] MEDS ORDERED: PROPOFOL 100 ML IV ONE (02:12)
[2023-06-30] MEDS: PROPOFOL 100 ML IV SCH ×3 (02:15→13:18)
[2023-06-30] MEDS ORDERED: fentaNYL Drip 2500mCg/250mlNS 250 ML IV ONE (02:22)
[2023-06-30] MEDS: fentaNYL Drip 2500mCg/250mlNS 250 ML IV SCH ×2 (02:35→13:49)
[2023-06-30 04:19] LABS: Base Excess 0.7 mmol/L (-2.0-2.0)
[2023-06-30] MEDS: MIDODRINE HCL 10 MG TAB PO SCH ×3 (06:15→22:43)
[2023-06-30] MEDS: ACCU-CHEK COMFORT CURVE STRIP VI SCH ×4 (06:15→22:44)
[2023-06-30] MEDS: InsuLIN REG 1unit/0.01ml Soln (100units/ml) SC SCH ×4 (06:25→22:00)
[2023-06-30 07:05] LABS: Base Excess 1.9 mmol/L (-2.0-2.0)
[2023-06-30] MEDS: ALBUMIN 25% 100 ML IV SCH ×2 (08:21→15:26)
[2023-06-30] MEDS: PANTOPRAZOLE 40 MG TAB PO SCH (10:00)
[2023-06-30] MEDS: ZINC SULFATE 220mg CAP or TAB PO SCH (10:50)
[2023-06-30] MEDS: ASCORBIC ACID 500 MG TAB PO SCH ×2 (10:50→22:43)
[2023-06-30] MEDS: CLOPIDOGREL BISULFATE 75 MG TAB PO SCH (10:50)
[2023-06-30] MEDS: MULTIPLE VITAMIN TAB PO SCH (10:50)
[2023-06-30] MEDS: CARVEDILOL 3.125 MG TAB PO SCH ×2 (10:51→22:44)
[2023-06-30] MEDS: ATORVASTATIN 20 MG TAB PO SCH (10:51)
[2023-06-30] MEDS: LEVOTHYROXINE SODIUM 50 MCG TAB PO SCH (10:52)
[2023-06-30 15:23] LABS: Mean Corpuscular Volume 90.6 fL (80.0-100.0)
[2023-06-30 15:26] LABS: Hematocrit 24.7 % (41.0-53.0); Hemoglobin 7.6 g/dL (13.5-17.5); Mean Corpuscular Hgb Conc. 30.9 g/dL (32.0-36.0); Red Blood Cells 2.73 10^6/uL (4.5-5.90); Red Cell Distribution Width 19.2 % (11.8-14.3); White Blood Cell 27.9 10^3/uL (4.4-10.8)
[2023-06-30 15:27] LABS: Basophils % (manual) 0 (0.0-2.0); Blast Cells 0; Metamyelocytes % 0; Myelocytes % 0; Promyelocytes % 0; Reactive Lymphocytes 0
[2023-06-30 15:49] LABS: Alanine Aminotransferase 12 U/L (7-40); Albumin 3.2 g/dL (3.2-4.8); Alkaline Phosphatase 276 U/L (46-116); Anion Gap 11 (5-15); Aspartate Aminotransferase 16 U/L (13-40); BUN/Creatinine Ratio 12.1 (10.0-20.0); Bilirubin, Total 1.7 mg/dL (0.2-1.0); Blood Urea Nitrogen 32 mg/dL (9-23); Calcium 8.2 mg/dL (8.7-10.4); Carbon Dioxide 24 mmol/L (20-30); Chloride 97 mmol/L (98-107); Glucose 66 mg/dL (74-106); Sodium 132 mmol/L (136-145); Total Protein 6.3 g/dL (5.7-8.2)
[2023-06-30] MEDS ORDERED: VANCOMYCIN 750mg/250ml 250 ML IV ONE (16:00)
[2023-06-30 16:46] LABS: Band Neutrophils % (manual) 8; Eosinophils % (manual) 2 (0-7); Lymphocytes % (manual) 3 (10.0-50.0); Monocytes % (manual) 1 (0-12); Platelet Estimate Adequate
[2023-06-30 18:41] LABS: COVID19 ANTIGEN SOFIA FIA NEGATIVE (NEGATIVE)
[2023-06-30 18:47] LABS: Rapid Influenza B Negative (Negative)
[2023-06-30 18:48] LABS: Rapid Influenza A Positive (Negative)
[2023-06-30] MEDS ORDERED: TPN PER PHARMACY 0 ML IV SCH (19:00)
[2023-06-30] MEDS ORDERED: AMINO ACID INFUSION IN D10W 1,000 ML IV NR (20:00)
[2023-06-30 20:11] LABS: Urine Amorphous Crystal FEW /hpf (None Seen); Urine Bacteria MOD /hpf (None Seen); Urine Blood 1+ /uL (Negative); Urine Budding Yeast MANY /hpf (None Seen); Urine Clarity CLOUDY (Clear); Urine Color Yellow (Yellow); Urine Protein, UAD 1+ (Negative); Urine Sperm PRESENT /hpf (None Seen); Urine Urobilinogen Normal (Negative); Urine WBC 753 /hpf (0 - 3); Urine WBC Clumps PRESENT /hpf (None Seen); Urine pH 5.5 (5.0-8.0)
[2023-06-30] MEDS: LINEZOLID 600MG/300ML 300 ML IV SCH (20:15)
[2023-07-01] VITALS (106 sets, daily range): BP systolic 91–126; BP diastolic 45–65; PULSE 63–82; RESP 17–21; TEMP 96.8–99.7; O2SAT 94–100
[2023-07-01] MEDS: PROPOFOL 100 ML IV SCH ×2 (00:25→16:13)
[2023-07-01] MEDS: PIPERACILLIN-TAZOB 3.375GM 100 ML IV SCH ×3 (02:39→17:30)
[2023-07-01] MEDS: fentaNYL Drip 2500mCg/250mlNS 250 ML IV SCH ×2 (02:41→21:47)
[2023-07-01] MEDS: LINEZOLID 600MG/300ML 300 ML IV SCH (06:17)
[2023-07-01] MEDS: ACCU-CHEK COMFORT CURVE STRIP VI SCH ×4 (06:17→21:44)
[2023-07-01] MEDS: MIDODRINE HCL 10 MG TAB PO SCH ×3 (06:34→21:45)
[2023-07-01] MEDS ORDERED: SODIUM CHL 0.9% 1000 ML BAG XX ONE (07:00)
[2023-07-01] MEDS: InsuLIN REG 1unit/0.01ml Soln (100units/ml) SC SCH ×4 (07:00→22:16)
[2023-07-01 07:52] LABS: Base Excess -0.5 mmol/L (-2.0-2.0)
[2023-07-01 08:03] LABS: Hemoglobin 7.3 g/dL (13.5-17.5)
[2023-07-01 08:04] LABS: Hematocrit 25.1 % (41.0-53.0); Mean Corpuscular Hemoglobin 27.8 pg (28.0-32.0); Mean Corpuscular Hgb Conc. 28.9 g/dL (32.0-36.0); Red Blood Cells 2.62 10^6/uL (4.5-5.90); White Blood Cell 21.7 10^3/uL (4.4-10.8)
[2023-07-01 08:20] LABS: Red Cell Distribution Width 20.9 % (11.8-14.3)
[2023-07-01 08:22] LABS: Basophils % (manual) 0 (0.0-2.0); Blast Cells 0; Myelocytes % 0; Promyelocytes % 0; Reactive Lymphocytes 0
[2023-07-01] MEDS: CARVEDILOL 3.125 MG TAB PO SCH ×2 (10:00→21:45)
[2023-07-01 10:37] LABS: Chloride 99 mmol/L (98-107); Potassium 3.6 mmol/L (3.5-5.1); Sodium 135 mmol/L (136-145)
[2023-07-01 10:39] LABS: Anion Gap 7 (5-15); Carbon Dioxide 29 mmol/L (20-30)
[2023-07-01 10:40] LABS: Calcium 7.8 mg/dL (8.7-10.4)
[2023-07-01 10:44] LABS: Glucose 120 mg/dL (74-106)
[2023-07-01 10:45] LABS: Alkaline Phosphatase 490 U/L (46-116); Magnesium 1.7 mg/dL (1.6-2.6)
[2023-07-01 10:46] LABS: Alanine Aminotransferase 31 U/L (7-40); Albumin 2.9 g/dL (3.2-4.8); Aspartate Aminotransferase 65 U/L (13-40)
[2023-07-01 10:47] LABS: Bilirubin, Total 1.8 mg/dL (0.2-1.0); Phosphorus 1.6 mg/dL (2.4-5.1); Total Protein 5.8 g/dL (5.7-8.2)
[2023-07-01 10:48] LABS: Blood Urea Nitrogen 18 mg/dL (9-23)
[2023-07-01 10:50] LABS: Triglycerides 109 mg/dL (< 150)
[2023-07-01] MEDS: NOREPINEPHRINE 8 MG/250ML KIT 250 ML IV SCH (11:37)
[2023-07-01] MEDS ORDERED: VANCOMYCIN PER PHARMACY 0 MG IV SCH (11:45)
[2023-07-01] MEDS: LEVOTHYROXINE SODIUM 50 MCG TAB PO SCH (13:30)
[2023-07-01] MEDS: OSELTAMIVIR 30 MG CAP PO SCH (13:30)
[2023-07-01] MEDS: MULTIPLE VITAMIN TAB PO SCH (13:30)
[2023-07-01] MEDS: ASCORBIC ACID 500 MG TAB PO SCH ×2 (13:30→21:44)
[2023-07-01] MEDS: PANTOPRAZOLE 40 MG TAB PO SCH (13:30)
[2023-07-01] MEDS: ATORVASTATIN 20 MG TAB PO SCH (13:30)
[2023-07-01] MEDS: ZINC SULFATE 220mg CAP or TAB PO SCH (13:30)
[2023-07-01] MEDS: CLOPIDOGREL BISULFATE 75 MG TAB PO SCH (13:30)
[2023-07-01 13:39] LABS: Band Neutrophils % (manual) 1; Eosinophils % (manual) 3 (0-7); Lymphocytes % (manual) 7 (10.0-50.0); Metamyelocytes % 1; Monocytes % (manual) 2 (0-12)
[2023-07-01 13:40] LABS: Platelet Estimate Adequate
[2023-07-01] MEDS ORDERED: SODIUM PHOSPH 24MEQ(18MMOL) IN NS 100 ML IV ONE (13:45)
[2023-07-01] MEDS ORDERED: VANCOMYCIN 1GM/200ML 250 ML IV ONE (15:00)
[2023-07-01] MEDS ORDERED: PPN PER PHARMACY IV NR ×9 (20:00)
[2023-07-01] MEDS ORDERED: EPOETIN ALFA-EPBX 10,000 UNIT/1ML VIAL SC ONE (21:00)
[2023-07-01] MEDS ORDERED: LORazepam 2MG/ML-1ML VIAL IV PRN (21:45)
[2023-07-02] VITALS (103 sets, daily range): BP systolic 88–136; BP diastolic 45–70; PULSE 65–83; RESP 12–19; TEMP 96.4–99.9; O2SAT 85–100
[2023-07-02] MEDS: PIPERACILLIN-TAZOB 3.375GM 100 ML IV SCH ×3 (00:18→18:09)
[2023-07-02] MEDS: PROPOFOL 100 ML IV SCH ×2 (03:28→14:02)
[2023-07-02 04:39] LABS: Alanine Aminotransferase 54 U/L (7-40); Albumin 2.7 g/dL (3.2-4.8); Alkaline Phosphatase 706 U/L (46-116); Anion Gap 10 (5-15); Aspartate Aminotransferase 120 U/L (13-40); BUN/Creatinine Ratio 11.8 (10.0-20.0); Blood Urea Nitrogen 25 mg/dL (9-23); Calcium 7.9 mg/dL (8.7-10.4); Carbon Dioxide 24 mmol/L (20-30); Chloride 97 mmol/L (98-107); Glucose 158 mg/dL (74-106); Magnesium 1.7 mg/dL (1.6-2.6); Sodium 131 mmol/L (136-145)
[2023-07-02 04:40] LABS: Bilirubin, Total 1.7 mg/dL (0.2-1.0); Phosphorus 3.3 mg/dL (2.4-5.1); Total Protein 5.8 g/dL (5.7-8.2)
[2023-07-02] MEDS: ACCU-CHEK COMFORT CURVE STRIP VI SCH ×4 (06:32→22:25)
[2023-07-02] MEDS: MIDODRINE HCL 10 MG TAB PO SCH ×3 (06:32→22:25)
[2023-07-02] MEDS: InsuLIN REG 1unit/0.01ml Soln (100units/ml) SC SCH ×4 (06:48→22:27)
[2023-07-02 07:34] LABS: Base Excess 0.8 mmol/L (-2.0-2.0)
[2023-07-02] MEDS ORDERED: LIDOCAINE 2% (LOCAL ANESTH.) PF 5ml SDV ONE (08:32)
[2023-07-02] MEDS: ASCORBIC ACID 500 MG TAB PO SCH ×2 (10:28→22:26)
[2023-07-02] MEDS: ZINC SULFATE 220mg CAP or TAB PO SCH (10:28)
[2023-07-02] MEDS: CARVEDILOL 3.125 MG TAB PO SCH ×2 (10:28→22:26)
[2023-07-02] MEDS: LEVOTHYROXINE SODIUM 50 MCG TAB PO SCH (10:28)
[2023-07-02] MEDS: MULTIPLE VITAMIN TAB PO SCH (10:28)
[2023-07-02] MEDS: CLOPIDOGREL BISULFATE 75 MG TAB PO SCH (10:28)
[2023-07-02] MEDS: ATORVASTATIN 20 MG TAB PO SCH (10:28)
[2023-07-02] MEDS: PANTOPRAZOLE 40 MG TAB PO SCH (10:28)
[2023-07-02] MEDS: OSELTAMIVIR 30 MG CAP PO SCH (10:30)
[2023-07-02] MEDS: NOREPINEPHRINE 8 MG/250ML KIT 250 ML IV SCH (11:15)
[2023-07-02] MEDS: fentaNYL Drip 2500mCg/250mlNS 250 ML IV SCH (14:10)
[2023-07-02] MEDS ORDERED: POTASSIUM PHOSPHATE IV NR ×9 (20:00)
[2023-07-02] MEDS ORDERED: [UNRECOGNIZED DRUG - OTHER] IV NR ×9 (20:00)
[2023-07-02] MEDS ORDERED: SODIUM CHLORIDE IV NR ×9 (20:00)
[2023-07-03] VITALS (109 sets, daily range): BP systolic 78–128; BP diastolic 42–68; PULSE 65–116; RESP 11–16; TEMP 41.9; O2SAT 89–100
[2023-07-03] MEDS: PIPERACILLIN-TAZOB 3.375GM 100 ML IV SCH (04:10)
[2023-07-03] MEDS: fentaNYL Drip 2500mCg/250mlNS 250 ML IV SCH ×2 (04:21→16:16)
[2023-07-03] MEDS: PROPOFOL 100 ML IV SCH ×2 (04:40→16:15)
[2023-07-03 05:10] LABS: Alanine Aminotransferase 109 U/L (7-40); Albumin 2.5 g/dL (3.2-4.8); Alkaline Phosphatase 860 U/L (46-116); Anion Gap 7 (5-15); Aspartate Aminotransferase 206 U/L (13-40); BUN/Creatinine Ratio 11.1 (10.0-20.0); Bilirubin, Total 1.7 mg/dL (0.2-1.0); Blood Urea Nitrogen 28 mg/dL (9-23); Calcium 7.7 mg/dL (8.7-10.4); Carbon Dioxide 23 mmol/L (20-30); Chloride 96 mmol/L (98-107); Glucose 150 mg/dL (74-106); Magnesium 1.9 mg/dL (1.6-2.6); Phosphorus 4.3 mg/dL (2.4-5.1); Total Protein 5.6 g/dL (5.7-8.2)
[2023-07-03 05:21] LABS: Sodium 126 mmol/L (136-145)
[2023-07-03] MEDS: ACCU-CHEK COMFORT CURVE STRIP VI SCH ×3 (06:01→17:14)
[2023-07-03] MEDS: MIDODRINE HCL 10 MG TAB PO SCH ×3 (06:01→22:11)
[2023-07-03] MEDS: NOREPINEPHRINE 8 MG/250ML KIT 250 ML IV SCH (06:02)
[2023-07-03] MEDS: InsuLIN REG 1unit/0.01ml Soln (100units/ml) SC SCH ×3 (06:45→17:16)
[2023-07-03 07:42] LABS: Base Excess -2.9 mmol/L (-2.0-2.0)
[2023-07-03] MEDS: LEVOTHYROXINE SODIUM 50 MCG TAB PO SCH (09:46)
[2023-07-03] MEDS: ATORVASTATIN 20 MG TAB PO SCH (09:46)
[2023-07-03] MEDS: CLOPIDOGREL BISULFATE 75 MG TAB PO SCH (09:46)
[2023-07-03] MEDS: ZINC SULFATE 220mg CAP or TAB PO SCH (09:46)
[2023-07-03] MEDS: OSELTAMIVIR 30 MG CAP PO SCH (09:46)
[2023-07-03] MEDS: ASCORBIC ACID 500 MG TAB PO SCH ×2 (09:46→22:11)
[2023-07-03] MEDS: PANTOPRAZOLE 40 MG TAB PO SCH (09:47)
[2023-07-03] MEDS: [UNRECOGNIZED DRUG - OTHER] IV NR ×7 (20:11)
[2023-07-03] MEDS: SODIUM CHLORIDE IV NR ×7 (20:11)
[2023-07-03] MEDS: CALCIUM GLUC IV NR ×7 (20:11)
[2023-07-03] MEDS: CARVEDILOL 3.125 MG TAB PO SCH (22:00)
[2023-07-03] MEDS: DOXYCYCLINE 100 MG TAB/CAP PO SCH (22:11)
[2023-07-04] VITALS (107 sets, daily range): BP systolic 94–129; BP diastolic 42–58; PULSE 63–93; RESP 9–24; TEMP 95.4–99.3; O2SAT 77–97
[2023-07-04] MEDS ORDERED: DEXTROSE (50%) 50ML SYRG IV SCH
[2023-07-04] MEDS: ACCU-CHEK COMFORT CURVE STRIP VI SCH ×4 (00:19→18:33)
[2023-07-04] MEDS: InsuLIN REG 1unit/0.01ml Soln (100units/ml) SC SCH ×4 (00:19→18:34)
[2023-07-04] MEDS: PROPOFOL 100 ML IV SCH ×2 (04:00→14:23)
[2023-07-04] MEDS: NOREPINEPHRINE 8 MG/250ML KIT 250 ML IV SCH (04:01)
[2023-07-04 04:36] LABS: Alanine Aminotransferase 117 U/L (7-40); Albumin 2.6 g/dL (3.2-4.8); Alkaline Phosphatase 968 U/L (46-116); Anion Gap 10 (5-15); Aspartate Aminotransferase 153 U/L (13-40); BUN/Creatinine Ratio 12.3 (10.0-20.0); Bilirubin, Total 1.4 mg/dL (0.2-1.0); Blood Urea Nitrogen 35 mg/dL (9-23); Carbon Dioxide 21 mmol/L (20-30); Chloride 92 mmol/L (98-107); Glucose 159 mg/dL (74-106); Magnesium 2.1 mg/dL (1.6-2.6); Phosphorus 4.5 mg/dL (2.4-5.1); Sodium 123 mmol/L (136-145); Total Protein 6.1 g/dL (5.7-8.2)
[2023-07-04] MEDS: MIDODRINE HCL 10 MG TAB PO SCH ×3 (06:13→21:33)
[2023-07-04] MEDS: fentaNYL Drip 2500mCg/250mlNS 250 ML IV SCH ×2 (08:15→21:37)
[2023-07-04 09:23] LABS: Base Excess -5.7 mmol/L (-2.0-2.0)
[2023-07-04] MEDS: CARVEDILOL 3.125 MG TAB PO SCH ×2 (10:00→21:34)
[2023-07-04] MEDS: PANTOPRAZOLE 40 MG/10 ML VIAL INJ IV SCH (10:49)
[2023-07-04] MEDS: LEVOTHYROXINE SODIUM 50 MCG TAB PO SCH (10:49)
[2023-07-04] MEDS: ASCORBIC ACID 500 MG TAB PO SCH ×2 (10:49→21:33)
[2023-07-04] MEDS: OSELTAMIVIR 30 MG CAP PO SCH (10:49)
[2023-07-04] MEDS: ATORVASTATIN 20 MG TAB PO SCH (10:49)
[2023-07-04] MEDS: DOXYCYCLINE 100 MG TAB/CAP PO SCH ×2 (10:49→21:34)
[2023-07-04] MEDS: ZINC SULFATE 220mg CAP or TAB PO SCH (10:49)
[2023-07-04] MEDS: ENOXAPARIN SOD 100 MG/1 ML SYRINGE SC SCH (10:50)
[2023-07-04] MEDS ORDERED: SODIUM BICARBONATE 8.4 % INJ 50ML VIAL IV ONE (11:15)
[2023-07-04] MEDS: [UNRECOGNIZED DRUG - OTHER] IV NR ×7 (19:52)
[2023-07-04] MEDS: SODIUM CHLORIDE IV NR ×7 (19:52)
[2023-07-04] MEDS: CALCIUM GLUC IV NR ×7 (19:52)
[2023-07-04] MEDS: PPN PER PHARMACY IV NR ×8 (20:39)
[2023-07-05] VITALS (103 sets, daily range): BP systolic 97–129; BP diastolic 42–87; PULSE 64–73; RESP 15–18; TEMP 97–99.1; O2SAT 92–100
[2023-07-05] MEDS: NOREPINEPHRINE 8 MG/250ML KIT 250 ML IV SCH (00:20)
[2023-07-05] MEDS: ACCU-CHEK COMFORT CURVE STRIP VI SCH ×5 (00:25→23:56)
[2023-07-05] MEDS: InsuLIN REG 1unit/0.01ml Soln (100units/ml) SC SCH ×5 (00:30→23:59)
[2023-07-05 03:57] LABS: Basophils # (auto) 0.1 10 ^3/uL (0-0.2); Eosinophils # (auto) 0.2 10 ^3/uL (0-0.8); Eosinophils % (auto) 0.9 % (0.0-7.0); Monocytes % (auto) 4.1 % (0.0-12.0); Neutrophils # (auto) 21.6 10 ^3/uL (1.6-8.6)
[2023-07-05 04:00] LABS: Basophils % (auto) 0.4 % (0.0-2.0); Hematocrit 22.3 % (41.0-53.0); Lymphocytes # (auto) 0.7 10 ^3/uL (0.4-5.4); Lymphocytes % (auto) 2.8 % (10.0-50.0); Mean Corpuscular Hemoglobin 28.2 pg (28.0-32.0); Mean Corpuscular Hgb Conc. 31.5 g/dL (32.0-36.0); Mean Corpuscular Volume 89.6 fL (80.0-100.0); Neutrophils % (auto) 91.8 % (37.0-80.0); Red Blood Cells 2.48 10^6/uL (4.5-5.90); White Blood Cell 23.5 10^3/uL (4.4-10.8)
[2023-07-05 04:17] LABS: Alanine Aminotransferase 95 U/L (7-40); Albumin 2.6 g/dL (3.2-4.8); Anion Gap 11 (5-15); Aspartate Aminotransferase 109 U/L (13-40); BUN/Creatinine Ratio 12.9 (10.0-20.0); Blood Urea Nitrogen 41 mg/dL (9-23); Carbon Dioxide 19 mmol/L (20-30); Chloride 91 mmol/L (98-107); Glucose 147 mg/dL (74-106); Potassium 3.9 mmol/L (3.5-5.1); Sodium 121 mmol/L (136-145)
[2023-07-05 04:18] LABS: Bilirubin, Total 1.4 mg/dL (0.2-1.0); Phosphorus 3.9 mg/dL (2.4-5.1); Total Protein 6.2 g/dL (5.7-8.2)
[2023-07-05 04:26] LABS: Alkaline Phosphatase 1048 U/L (46-116)
[2023-07-05] MEDS: MIDODRINE HCL 10 MG TAB PO SCH ×3 (05:34→22:07)
[2023-07-05 08:42] LABS: Base Excess -5.1 mmol/L (-2.0-2.0)
[2023-07-05] MEDS: ENOXAPARIN SOD 100 MG/1 ML SYRINGE SC SCH (10:00)
[2023-07-05] MEDS: DOXYCYCLINE 100 MG TAB/CAP PO SCH ×2 (10:50→22:07)
[2023-07-05] MEDS: ASCORBIC ACID 500 MG TAB PO SCH (10:50)
[2023-07-05] MEDS: OSELTAMIVIR 30 MG CAP PO SCH (10:50)
[2023-07-05] MEDS: ZINC SULFATE 220mg CAP or TAB PO SCH (10:50)
[2023-07-05] MEDS: ATORVASTATIN 20 MG TAB PO SCH (10:50)
[2023-07-05] MEDS: CARVEDILOL 3.125 MG TAB PO SCH ×2 (10:51→22:08)
[2023-07-05] MEDS: LEVOTHYROXINE SODIUM 50 MCG TAB PO SCH (10:51)
[2023-07-05] MEDS: PANTOPRAZOLE 40 MG/10 ML VIAL INJ IV SCH (10:54)
[2023-07-05] MEDS: BUMETANIDE 2.5mg/10ml (0.25 mg/ml) INJ IV SCH (10:55)
[2023-07-05] MEDS: PROPOFOL 100 ML IV SCH (12:13)
[2023-07-05] MEDS: fentaNYL Drip 2500mCg/250mlNS 250 ML IV SCH (12:15)
[2023-07-05] MEDS ORDERED: LIDOCAINE 2%HCL (LOCAL ANESTH.) INJ 20ML MDV ONE (13:47)
[2023-07-05] MEDS ORDERED: HEPARIN SODIUM (PORCINE) 5000 UNITS/ML 1ML VIAL ONE (14:06)
[2023-07-05 14:13] LABS: INR 1.26 (0.9-1.15); Partial Thromboplastin Time 43.9 SEC (24.5-34.5)
[2023-07-05] MEDS: PPN PER PHARMACY IV NR ×8 (19:59)
[2023-07-05] MEDS ORDERED: PPN PER PHARMACY IV NR ×9 (20:00)
[2023-07-06] VITALS (105 sets, daily range): BP systolic 79–150; BP diastolic 39–70; PULSE 65–79; RESP 15–19; TEMP 97–99; O2SAT 91–97
[2023-07-06] MEDS: fentaNYL Drip 2500mCg/250mlNS 250 ML IV SCH (02:44)
[2023-07-06 03:49] LABS: Basophils # (auto) 0 10 ^3/uL (0-0.2); Basophils % (auto) 0.1 % (0.0-2.0); Eosinophils # (auto) 0.2 10 ^3/uL (0-0.8); Hematocrit 27.7 % (41.0-53.0); Hemoglobin 8.9 g/dL (13.5-17.5); Lymphocytes # (auto) 0.6 10 ^3/uL (0.4-5.4); Lymphocytes % (auto) 2.8 % (10.0-50.0); Mean Corpuscular Hemoglobin 28.2 pg (28.0-32.0); Mean Corpuscular Hgb Conc. 32.1 g/dL (32.0-36.0); Mean Corpuscular Volume 88.1 fL (80.0-100.0); Monocytes # (auto) 0.9 10 ^3/uL (0-1.3); Monocytes % (auto) 4.6 % (0.0-12.0); Neutrophils # (auto) 18.2 10 ^3/uL (1.6-8.6); Neutrophils % (auto) 91.5 % (37.0-80.0); Nucleated Red Blood Cells % 0.1 %; Red Blood Cells 3.14 10^6/uL (4.5-5.90); Red Cell Distribution Width 18.4 % (11.8-14.3); White Blood Cell 19.9 10^3/uL (4.4-10.8)
[2023-07-06 04:04] LABS: Alanine Aminotransferase 116 U/L (7-40); Anion Gap 12 (5-15); BUN/Creatinine Ratio 12.9 (10.0-20.0); Blood Urea Nitrogen 45 mg/dL (9-23); Calcium 8.2 mg/dL (8.7-10.4); Carbon Dioxide 18 mmol/L (20-30); Chloride 91 mmol/L (98-107); Glucose 148 mg/dL (74-106); Magnesium 2.1 mg/dL (1.6-2.6); Potassium 3.9 mmol/L (3.5-5.1); Sodium 121 mmol/L (136-145)
[2023-07-06 04:05] LABS: Albumin 2.5 g/dL (3.2-4.8); Aspartate Aminotransferase 161 U/L (13-40); Phosphorus 3.9 mg/dL (2.4-5.1)
[2023-07-06 04:06] LABS: Bilirubin, Total 1.5 mg/dL (0.2-1.0); Total Protein 6.2 g/dL (5.7-8.2)
[2023-07-06 04:12] LABS: Alkaline Phosphatase 1081 U/L (46-116)
[2023-07-06] MEDS: NOREPINEPHRINE 8 MG/250ML KIT 250 ML IV SCH (04:14)
[2023-07-06] MEDS: MIDODRINE HCL 10 MG TAB PO SCH ×3 (05:53→21:50)
[2023-07-06] MEDS: ACCU-CHEK COMFORT CURVE STRIP VI SCH ×4 (05:53→23:34)
[2023-07-06] MEDS: InsuLIN REG 1unit/0.01ml Soln (100units/ml) SC SCH ×4 (05:59→23:37)
[2023-07-06] MEDS: ALBUMIN 25% 100 ML IV SCH ×2 (08:00→09:57)
[2023-07-06] MEDS ORDERED: ALBUMIN 25% 200 ML IV ONE (09:10)
[2023-07-06] MEDS: BUMETANIDE 2.5mg/10ml (0.25 mg/ml) INJ IV SCH ×2 (09:10→17:27)
[2023-07-06] MEDS ORDERED: SODIUM CHL 0.9% 1000 ML BAG XX ONE (09:15)
[2023-07-06] MEDS: PANTOPRAZOLE 40 MG/10 ML VIAL INJ IV SCH (09:39)
[2023-07-06] MEDS: ZINC SULFATE 220mg CAP or TAB PO SCH (09:39)
[2023-07-06] MEDS: CARVEDILOL 3.125 MG TAB PO SCH ×2 (09:40→21:50)
[2023-07-06] MEDS: LEVOTHYROXINE SODIUM 50 MCG TAB PO SCH (09:41)
[2023-07-06] MEDS: DOXYCYCLINE 100 MG TAB/CAP PO SCH ×2 (09:41→21:50)
[2023-07-06] MEDS: ATORVASTATIN 20 MG TAB PO SCH (09:41)
[2023-07-06] MEDS ORDERED: VANCOMYCIN 1GM/200ML 0 ML IV ONE (11:37)
[2023-07-06] MEDS ORDERED: VANCOMYCIN 750mg/250ml 250 ML IV ONE (12:00)
[2023-07-06] MEDS: ENOXAPARIN SOD 100 MG/1 ML SYRINGE SC SCH (14:34)
[2023-07-06] MEDS ORDERED: PPN PER PHARMACY IV NR ×9 (20:00)
[2023-07-06] MEDS ORDERED: EPOETIN ALFA-EPBX 4,000 UNIT/ML VIAL SC ONE (21:00)
[2023-07-07] VITALS (108 sets, daily range): BP systolic 90–181; BP diastolic 15–64; PULSE 69–92; RESP 13–20; TEMP 95.9–99.7; O2SAT 92–100
[2023-07-07] MEDS: fentaNYL Drip 2500mCg/250mlNS 250 ML IV SCH (00:53)
[2023-07-07 04:21] LABS: Alanine Aminotransferase 91 U/L (7-40); Anion Gap 12 (5-15); Aspartate Aminotransferase 114 U/L (13-40); BUN/Creatinine Ratio 11.2 (10.0-20.0); Basophils # (auto) 0.1 10 ^3/uL (0-0.2); Calcium 8.6 mg/dL (8.7-10.4); Carbon Dioxide 21 mmol/L (20-30); Chloride 95 mmol/L (98-107); Eosinophils # (auto) 0.1 10 ^3/uL (0-0.8); Glucose 143 mg/dL (74-106); Hemoglobin 8.1 g/dL (13.5-17.5); Lymphocytes # (auto) 0.5 10 ^3/uL (0.4-5.4); Magnesium 2.2 mg/dL (1.6-2.6); Nucleated Red Blood Cells % 0.1 %; Potassium 3.5 mmol/L (3.5-5.1)
[2023-07-07 04:22] LABS: Bilirubin, Total 1.8 mg/dL (0.2-1.0); Phosphorus 2.9 mg/dL (2.4-5.1); Total Protein 6.7 g/dL (5.7-8.2)
[2023-07-07 04:24] LABS: Basophils % (auto) 0.3 % (0.0-2.0); Eosinophils % (auto) 0.8 % (0.0-7.0); Hematocrit 25.5 % (41.0-53.0); Lymphocytes % (auto) 2.9 % (10.0-50.0); Mean Corpuscular Hemoglobin 28.2 pg (28.0-32.0); Mean Corpuscular Hgb Conc. 31.9 g/dL (32.0-36.0); Mean Corpuscular Volume 88.2 fL (80.0-100.0); Monocytes % (auto) 5.5 % (0.0-12.0); Neutrophils # (auto) 16.7 10 ^3/uL (1.6-8.6); Neutrophils % (auto) 90.5 % (37.0-80.0); Red Blood Cells 2.89 10^6/uL (4.5-5.90); Red Cell Distribution Width 18.7 % (11.8-14.3); White Blood Cell 18.4 10^3/uL (4.4-10.8)
[2023-07-07 04:30] LABS: Alkaline Phosphatase 1037 U/L (46-116)
[2023-07-07 04:41] LABS: Blood Urea Nitrogen 30 mg/dL (9-23); Sodium 128 mmol/L (136-145)
[2023-07-07] MEDS: BUMETANIDE 2.5mg/10ml (0.25 mg/ml) INJ IV SCH ×2 (05:41→19:00)
[2023-07-07] MEDS: MIDODRINE HCL 10 MG TAB PO SCH ×3 (05:41→22:25)
[2023-07-07] MEDS: ACCU-CHEK COMFORT CURVE STRIP VI SCH ×3 (05:41→19:00)
[2023-07-07] MEDS: InsuLIN REG 1unit/0.01ml Soln (100units/ml) SC SCH ×3 (06:20→18:00)
[2023-07-07 09:17] LABS: Base Excess -2.1 mmol/L (-2.0-2.0)
[2023-07-07] MEDS: ENOXAPARIN SOD 100 MG/1 ML SYRINGE SC SCH (11:11)
[2023-07-07] MEDS: PANTOPRAZOLE 40 MG/10 ML VIAL INJ IV SCH (11:11)
[2023-07-07] MEDS: ATORVASTATIN 20 MG TAB PO SCH (11:11)
[2023-07-07] MEDS: LEVOTHYROXINE SODIUM 50 MCG TAB PO SCH (11:11)
[2023-07-07] MEDS: ZINC SULFATE 220mg CAP or TAB PO SCH (11:12)
[2023-07-07] MEDS: CARVEDILOL 3.125 MG TAB PO SCH ×2 (11:12→22:00)
[2023-07-07] MEDS: NOREPINEPHRINE 8 MG/250ML KIT 250 ML IV SCH ×2 (11:15→20:30)
[2023-07-07] MEDS: DOXYCYCLINE 100 MG TAB/CAP PO SCH ×2 (11:16→22:25)
[2023-07-07] MEDS: PPN PER PHARMACY IV NR ×10 (22:31)
[2023-07-08] VITALS (108 sets, daily range): BP systolic 113–172; BP diastolic 13–69; PULSE 69–102; RESP 14–24; TEMP 93.6–98.8; O2SAT 95–100
[2023-07-08] MEDS: ACCU-CHEK COMFORT CURVE STRIP VI SCH ×5 (00:23→23:29)
[2023-07-08] MEDS: InsuLIN REG 1unit/0.01ml Soln (100units/ml) SC SCH ×5 (00:24→23:30)
[2023-07-08] MEDS: fentaNYL Drip 2500mCg/250mlNS 250 ML IV SCH (02:58)
[2023-07-08 04:03] LABS: Basophils # (auto) 0.1 10 ^3/uL (0-0.2); Basophils % (auto) 0.4 % (0.0-2.0); Eosinophils # (auto) 0.1 10 ^3/uL (0-0.8); Eosinophils % (auto) 0.4 % (0.0-7.0); Hematocrit 27.6 % (41.0-53.0); Hemoglobin 8.7 g/dL (13.5-17.5); Lymphocytes # (auto) 0.6 10 ^3/uL (0.4-5.4); Mean Corpuscular Hgb Conc. 31.5 g/dL (32.0-36.0); Monocytes # (auto) 0.9 10 ^3/uL (0-1.3); Monocytes % (auto) 4.1 % (0.0-12.0); Neutrophils # (auto) 19.3 10 ^3/uL (1.6-8.6); Neutrophils % (auto) 92.1 % (37.0-80.0); Red Cell Distribution Width 18.6 % (11.8-14.3)
[2023-07-08 04:16] LABS: Alanine Aminotransferase 118 U/L (7-40); Aspartate Aminotransferase 150 U/L (13-40); BUN/Creatinine Ratio 11.9 (10.0-20.0); Blood Urea Nitrogen 34 mg/dL (9-23); Calcium 9.3 mg/dL (8.5-10.1); Chloride 95 mmol/L (98-107); Glucose 158 mg/dL (74-106); Potassium 3.5 mmol/L (3.5-5.1); Sodium 128 mmol/L (136-145); Triglycerides 90 mg/dL (< 150)
[2023-07-08 04:17] LABS: Bilirubin, Total 1.6 mg/dL (0.2-1.0); Phosphorus 3.5 mg/dL (2.4-5.1)
[2023-07-08 04:25] LABS: Alkaline Phosphatase 1047 U/L (46-116)
[2023-07-08 04:34] LABS: Anion Gap 13 (5-15); Carbon Dioxide 20 mmol/L (20-30)
[2023-07-08 05:14] LABS: Magnesium 2.1 mg/dL (1.6-2.6)
[2023-07-08] MEDS: MIDODRINE HCL 10 MG TAB PO SCH ×3 (05:54→22:00)
[2023-07-08] MEDS: BUMETANIDE 2.5mg/10ml (0.25 mg/ml) INJ IV SCH ×3 (05:55→23:31)
[2023-07-08 08:05] LABS: Base Excess -2.5 mmol/L (-2.0-2.0)
[2023-07-08] MEDS: PANTOPRAZOLE 40 MG/10 ML VIAL INJ IV SCH (09:46)
[2023-07-08] MEDS: LEVOTHYROXINE SODIUM 50 MCG TAB PO SCH (09:46)
[2023-07-08] MEDS: ZINC SULFATE 220mg CAP or TAB PO SCH (09:46)
[2023-07-08] MEDS: ATORVASTATIN 20 MG TAB PO SCH (09:46)
[2023-07-08] MEDS: DOXYCYCLINE 100 MG TAB/CAP PO SCH ×2 (09:54→22:00)
[2023-07-08] MEDS: ENOXAPARIN SOD 80 MG/0.8ML SYRINGE SC SCH (11:07)
[2023-07-08 14:31] LABS: Body Fluid Polymorphonuclear 40 % (0-25); Body Fluid Red Blood Cells 133 CUMM (0-2000); Body Fluid White Blood Cells 2690 CUMM (0-200)
[2023-07-08] MEDS: PPN PER PHARMACY IV NR ×10 (19:58)
[2023-07-08] MEDS ORDERED: TPN PER PHARMACY IV NR ×11 (20:00)
[2023-07-09] VITALS (108 sets, daily range): BP systolic 86–174; BP diastolic 16–139; PULSE 62–82; RESP 11–23; TEMP 96.8–99; O2SAT 96–100
[2023-07-09] MEDS: NOREPINEPHRINE 8 MG/250ML KIT 250 ML IV SCH (01:58)
[2023-07-09 04:42] LABS: Alanine Aminotransferase 86 U/L (7-40); Albumin 2.7 g/dL (3.2-4.8); Alkaline Phosphatase 960 U/L (46-116); Anion Gap 11 (5-15); Aspartate Aminotransferase 80 U/L (13-40); BUN/Creatinine Ratio 12.2 (10.0-20.0); Blood Urea Nitrogen 36 mg/dL (9-23); Calcium 8.3 mg/dL (8.7-10.4); Carbon Dioxide 20 mmol/L (20-30); Chloride 96 mmol/L (98-107); Glucose 184 mg/dL (74-106); Magnesium 2.2 mg/dL (1.6-2.6); Potassium 3.7 mmol/L (3.5-5.1); Sodium 127 mmol/L (136-145)
[2023-07-09 04:43] LABS: Phosphorus 4.1 mg/dL (2.4-5.1)
[2023-07-09] MEDS ORDERED: fentaNYL Drip 2500mCg/250mlNS 250 ML IV ONE (05:46)
[2023-07-09] MEDS: fentaNYL Drip 2500mCg/250mlNS 250 ML IV SCH (06:00)
[2023-07-09] MEDS: MIDODRINE HCL 10 MG TAB PO SCH ×3 (06:04→22:30)
[2023-07-09] MEDS: ACCU-CHEK COMFORT CURVE STRIP VI SCH ×4 (06:04→23:46)
[2023-07-09] MEDS: InsuLIN REG 1unit/0.01ml Soln (100units/ml) SC SCH ×4 (06:05→23:47)
[2023-07-09] MEDS: BUMETANIDE 2.5mg/10ml (0.25 mg/ml) INJ IV SCH ×3 (06:09→22:43)
[2023-07-09 08:31] LABS: Basophils # (auto) 0.1 10 ^3/uL (0-0.2); Eosinophils # (auto) 0.3 10 ^3/uL (0-0.8); Hemoglobin 8.2 g/dL (13.5-17.5); Monocytes # (auto) 1.1 10 ^3/uL (0-1.3)
[2023-07-09 08:32] LABS: Basophils % (auto) 0.3 % (0.0-2.0); Eosinophils % (auto) 1.7 % (0.0-7.0); Hematocrit 25.4 % (41.0-53.0); Lymphocytes # (auto) 0.7 10 ^3/uL (0.4-5.4); Lymphocytes % (auto) 3.8 % (10.0-50.0); Mean Corpuscular Hemoglobin 27.9 pg (28.0-32.0); Mean Corpuscular Hgb Conc. 32.1 g/dL (32.0-36.0); Mean Corpuscular Volume 86.9 fL (80.0-100.0); Neutrophils # (auto) 16.2 10 ^3/uL (1.6-8.6); Neutrophils % (auto) 88.2 % (37.0-80.0); Red Blood Cells 2.93 10^6/uL (4.5-5.90); Red Cell Distribution Width 19.2 % (11.8-14.3); White Blood Cell 18.4 10^3/uL (4.4-10.8)
[2023-07-09] MEDS: ZINC SULFATE 220mg CAP or TAB PO SCH (08:56)
[2023-07-09] MEDS: ATORVASTATIN 20 MG TAB PO SCH (08:56)
[2023-07-09] MEDS: PANTOPRAZOLE 40 MG/10 ML VIAL INJ IV SCH (08:56)
[2023-07-09] MEDS: ENOXAPARIN SOD 80 MG/0.8ML SYRINGE SC SCH (08:56)
[2023-07-09] MEDS: DOXYCYCLINE 100 MG TAB/CAP PO SCH ×2 (08:56→22:30)
[2023-07-09] MEDS: LEVOTHYROXINE SODIUM 50 MCG TAB PO SCH (08:57)
[2023-07-09 09:03] LABS: Base Excess -2.5 mmol/L (-2.0-2.0)
[2023-07-09 12:07] LABS: Glucose, Body Fluid <2 mg/dL (.); Protein, Body Fluid 3.5 g/dL (.)
[2023-07-09] MEDS ORDERED: VANCOMYCIN 500 MG in D5W 5% 100 ML IV ONE (15:00)
[2023-07-09] MEDS ORDERED: PPN PER PHARMACY IV NR ×12 (20:00)
[2023-07-10] VITALS (104 sets, daily range): BP systolic 38–189; BP diastolic 19–108; PULSE 61–90; RESP 13–23; TEMP 71.6–99.5; O2SAT 88–100
[2023-07-10] MEDS: fentaNYL Drip 2500mCg/250mlNS 250 ML IV SCH ×2 (02:01→21:23)
[2023-07-10] MEDS: NOREPINEPHRINE 8 MG/250ML KIT 250 ML IV SCH (02:05)
[2023-07-10 05:11] LABS: Basophils # (auto) 0.1 10 ^3/uL (0-0.2); Basophils % (auto) 0.4 % (0.0-2.0); Eosinophils # (auto) 0.2 10 ^3/uL (0-0.8); Eosinophils % (auto) 1.1 % (0.0-7.0); Hematocrit 27.5 % (41.0-53.0); Hemoglobin 8.8 g/dL (13.5-17.5); Lymphocytes # (auto) 0.6 10 ^3/uL (0.4-5.4); Lymphocytes % (auto) 3.1 % (10.0-50.0); Mean Corpuscular Hemoglobin 28.1 pg (28.0-32.0); Mean Corpuscular Hgb Conc. 31.8 g/dL (32.0-36.0); Mean Corpuscular Volume 88.3 fL (80.0-100.0); Monocytes # (auto) 1.1 10 ^3/uL (0-1.3); Monocytes % (auto) 5.5 % (0.0-12.0); Neutrophils # (auto) 17.9 10 ^3/uL (1.6-8.6); Neutrophils % (auto) 89.9 % (37.0-80.0); Red Blood Cells 3.12 10^6/uL (4.5-5.90)
[2023-07-10 05:23] LABS: Alanine Aminotransferase 78 U/L (7-40); Alkaline Phosphatase 911 U/L (46-116); Anion Gap 12 (5-15); BUN/Creatinine Ratio 14.9 (10.0-20.0); Blood Urea Nitrogen 43 mg/dL (9-23); Calcium 8.5 mg/dL (8.7-10.4); Carbon Dioxide 20 mmol/L (20-30); Chloride 94 mmol/L (98-107); Glucose 158 mg/dL (74-106); Magnesium 2.1 mg/dL (1.6-2.6); Potassium 3.6 mmol/L (3.5-5.1); Sodium 126 mmol/L (136-145)
[2023-07-10 05:24] LABS: Albumin 2.8 g/dL (3.2-4.8); Aspartate Aminotransferase 63 U/L (13-40); Phosphorus 4.4 mg/dL (2.4-5.1); Total Protein 7.3 g/dL (5.7-8.2)
[2023-07-10] MEDS: BUMETANIDE 2.5mg/10ml (0.25 mg/ml) INJ IV SCH ×2 (06:00→15:12)
[2023-07-10] MEDS: MIDODRINE HCL 10 MG TAB PO SCH ×3 (06:13→21:14)
[2023-07-10] MEDS: InsuLIN REG 1unit/0.01ml Soln (100units/ml) SC SCH ×4 (06:15→23:14)
[2023-07-10] MEDS: ACCU-CHEK COMFORT CURVE STRIP VI SCH ×4 (06:15→23:15)
[2023-07-10] MEDS ORDERED: ALBUTEROL SULF 2.5 MG/0.5ML(0.5%) NEB SOLN ONE (10:17)
[2023-07-10] MEDS ORDERED: IPRATROPIUM BROM 0.5 MG/2.5ML INH SOL ONE (10:17)
[2023-07-10] MEDS: ZINC SULFATE 220mg CAP or TAB PO SCH (10:28)
[2023-07-10] MEDS: LEVOTHYROXINE SODIUM 50 MCG TAB PO SCH (10:28)
[2023-07-10] MEDS: ATORVASTATIN 20 MG TAB PO SCH (10:28)
[2023-07-10] MEDS: PANTOPRAZOLE 40 MG/10 ML VIAL INJ IV SCH (10:28)
[2023-07-10] MEDS: ENOXAPARIN SOD 80 MG/0.8ML SYRINGE SC SCH (10:29)
[2023-07-10] MEDS: DOXYCYCLINE 100 MG TAB/CAP PO SCH ×2 (10:29→21:14)
[2023-07-10 11:07] LABS: LD, Body Fluid 7375 IU/L (.)
[2023-07-10 11:22] LABS: Base Excess 0.6 mmol/L (-2.0-2.0)
[2023-07-10] MEDS: IPRATROPIUM BROM 0.5 MG/2.5ML INH SOL NEB SCH ×2 (15:28→18:02)
[2023-07-10] MEDS: ALBUTEROL SULF 2.5 MG/0.5ML(0.5%) NEB SOLN NEB SCH ×2 (15:28→18:02)
[2023-07-10] MEDS ORDERED: VANCOMYCIN 500 MG in D5W 5% 100 ML IV ONE (16:00)
[2023-07-10] MEDS ORDERED: PROPOFOL 100 ML IV ONE (17:18)
[2023-07-10] MEDS: PROPOFOL 100 ML IV SCH (17:30)
[2023-07-10] MEDS ORDERED: PPN PER PHARMACY IV NR ×12 (20:00)
[2023-07-10] MEDS ORDERED: BUMETANIDE 2.5mg/10ml (0.25 mg/ml) INJ IV SCH (22:00)
[2023-07-10] MEDS: BUMETANIDE 1mg/4ml VIAL (0.25mg/ml) IV SCH (23:10)
[2023-07-11] VITALS (107 sets, daily range): BP systolic 101–153; BP diastolic 22–71; PULSE 56–76; RESP 14–20; TEMP 95.5–99.3; O2SAT 81–100
[2023-07-11] MEDS: ALBUTEROL SULF 2.5 MG/0.5ML(0.5%) NEB SOLN NEB SCH ×4 (00:09→19:11)
[2023-07-11] MEDS: IPRATROPIUM BROM 0.5 MG/2.5ML INH SOL NEB SCH ×4 (00:09→19:11)
[2023-07-11] MEDS: fentaNYL Drip 2500mCg/250mlNS 250 ML IV SCH (02:35)
[2023-07-11] MEDS: PROPOFOL 100 ML IV SCH ×2 (02:35→22:20)
[2023-07-11 04:29] LABS: Alanine Aminotransferase 69 U/L (7-40); Albumin 2.4 g/dL (3.2-4.8); Alkaline Phosphatase 741 U/L (46-116); Anion Gap 9 (5-15); Aspartate Aminotransferase 87 U/L (13-40); BUN/Creatinine Ratio 17.3 (10.0-20.0); Bilirubin, Total 0.8 mg/dL (0.2-1.0); Blood Urea Nitrogen 35 mg/dL (9-23); Calcium 8.1 mg/dL (8.7-10.4); Carbon Dioxide 23 mmol/L (20-30); Chloride 98 mmol/L (98-107); Glucose 144 mg/dL (74-106); Magnesium 1.9 mg/dL (1.6-2.6); Phosphorus 2.7 mg/dL (2.4-5.1); Potassium 3.6 mmol/L (3.5-5.1); Sodium 130 mmol/L (136-145)
[2023-07-11 04:30] LABS: Total Protein 6.3 g/dL (5.7-8.2)
[2023-07-11] MEDS: BUMETANIDE 1mg/4ml VIAL (0.25mg/ml) IV SCH ×3 (05:54→22:19)
[2023-07-11] MEDS: ACCU-CHEK COMFORT CURVE STRIP VI SCH ×3 (05:54→18:28)
[2023-07-11] MEDS: MIDODRINE HCL 10 MG TAB PO SCH ×3 (05:54→22:19)
[2023-07-11] MEDS: InsuLIN REG 1unit/0.01ml Soln (100units/ml) SC SCH ×3 (05:56→18:00)
[2023-07-11 06:57] LABS: Base Excess -0.9 mmol/L (-2.0-2.0)
[2023-07-11] MEDS: PANTOPRAZOLE 40 MG/10 ML VIAL INJ IV SCH (10:41)
[2023-07-11] MEDS: ZINC SULFATE 220mg CAP or TAB PO SCH (10:42)
[2023-07-11] MEDS: ATORVASTATIN 20 MG TAB PO SCH (10:42)
[2023-07-11] MEDS: ENOXAPARIN SOD 80 MG/0.8ML SYRINGE SC SCH (10:42)
[2023-07-11] MEDS: DOXYCYCLINE 100 MG TAB/CAP PO SCH ×2 (10:42→22:19)
[2023-07-11] MEDS: LEVOTHYROXINE SODIUM 50 MCG TAB PO SCH (10:42)
[2023-07-11] MEDS: NOREPINEPHRINE 8 MG/250ML KIT 250 ML IV SCH (11:15)
[2023-07-11] MEDS ORDERED: PPN PER PHARMACY IV NR ×11 (20:00)
[2023-07-12] VITALS (44 sets, daily range): BP systolic 103–137; BP diastolic 22–60; PULSE 55–65; RESP 12–17; TEMP 97.5–97.6; O2SAT 96–100
[2023-07-12] MEDS: fentaNYL Drip 2500mCg/250mlNS 250 ML IV SCH (00:33)
[2023-07-12] MEDS: ALBUTEROL SULF 2.5 MG/0.5ML(0.5%) NEB SOLN NEB SCH ×2 (01:03→06:25)
[2023-07-12] MEDS: IPRATROPIUM BROM 0.5 MG/2.5ML INH SOL NEB SCH ×2 (01:03→06:25)
[2023-07-12] MEDS: PROPOFOL 100 ML IV SCH (04:20)
[2023-07-12 04:36] LABS: Alanine Aminotransferase 73 U/L (7-40); Alkaline Phosphatase 696 U/L (46-116); Anion Gap 10 (5-15); BUN/Creatinine Ratio 18.5 (10.0-20.0); Blood Urea Nitrogen 41 mg/dL (9-23); Calcium 8.1 mg/dL (8.7-10.4); Carbon Dioxide 21 mmol/L (20-30); Chloride 98 mmol/L (98-107); Glucose 106 mg/dL (74-106); Magnesium 1.9 mg/dL (1.6-2.6); Potassium 3.9 mmol/L (3.5-5.1); Sodium 129 mmol/L (136-145)
[2023-07-12 04:38] LABS: Albumin 2.3 g/dL (3.2-4.8); Aspartate Aminotransferase 91 U/L (13-40); Bilirubin, Total 0.8 mg/dL (0.2-1.0); Phosphorus 3.1 mg/dL (2.4-5.1); Total Protein 6.4 g/dL (5.7-8.2)
[2023-07-12] MEDS: InsuLIN REG 1unit/0.01ml Soln (100units/ml) SC SCH ×2 (06:00)
[2023-07-12] MEDS: ACCU-CHEK COMFORT CURVE STRIP VI SCH ×2 (06:00)
[2023-07-12] MEDS: MIDODRINE HCL 10 MG TAB PO SCH (06:00)
[2023-07-12] MEDS: BUMETANIDE 1mg/4ml VIAL (0.25mg/ml) IV SCH (06:00)
[2023-07-12 08:24] LABS: Base Excess -2.1 mmol/L (-2.0-2.0)
== END 2023-07-12 09:40 | disposition short-term general hospital (02) | DRG 720 ==
LOC: ER 12:42 → EDBD 12:42 → TELE 17:23 → TELE-WESTW 21:26 → ICU WEST 06-30 04:03
PROVIDERS: ADMIT Nurse Practitioner; ATTEND Nurse Practitioner
PROC: 5A1D70Z Performance of Urinary Filtration, Intermittent, Less than 6 Hours Per Day (ICD-10-PCS; 2023-06-28)
PROC: 5A1955Z Respiratory Ventilation, Greater than 96 Consecutive Hours (ICD-10-PCS; principal; 2023-06-30)
PROC: 0BH17EZ Insertion of Endotracheal Airway into Trachea, Via Natural or Artificial Opening (ICD-10-PCS; 2023-06-30)
PROC: 5A1D70Z Performance of Urinary Filtration, Intermittent, Less than 6 Hours Per Day (ICD-10-PCS; 2023-07-01)
PROC: 05HB33Z Insertion of Infusion Device into Right Basilic Vein, Percutaneous Approach (ICD-10-PCS; 2023-07-04)
PROC: B54MZZA Ultrasonography of Right Upper Extremity Veins, Guidance (ICD-10-PCS; 2023-07-04)
PROC: 0JH63XZ Insertion of Tunneled Vascular Access Device into Chest Subcutaneous Tissue and Fascia, Percutaneous Approach (ICD-10-PCS; 2023-07-05)
PROC: 02H633Z Insertion of Infusion Device into Right Atrium, Percutaneous Approach (ICD-10-PCS; 2023-07-05)
PROC: B518YZA Fluoroscopy of Superior Vena Cava using Other Contrast, Guidance (ICD-10-PCS; 2023-07-05)
PROC: B548ZZA Ultrasonography of Superior Vena Cava, Guidance (ICD-10-PCS; 2023-07-05)
PROC: 30233N1 Transfusion of Nonautologous Red Blood Cells into Peripheral Vein, Percutaneous Approach (ICD-10-PCS; 2023-07-05)
PROC: 5A1D70Z Performance of Urinary Filtration, Intermittent, Less than 6 Hours Per Day (ICD-10-PCS; 2023-07-06)
PROC: 0W993ZZ Drainage of Right Pleural Cavity, Percutaneous Approach (ICD-10-PCS; 2023-07-08)
PROC: 5A1D70Z Performance of Urinary Filtration, Intermittent, Less than 6 Hours Per Day (ICD-10-PCS; 2023-07-10)
DX: A41.02 Sepsis due to Methicillin resistant Staphylococcus aureus (principal); J96.01 Acute respiratory failure with hypoxia; J86.9 Pyothorax without fistula; R65.21 Severe sepsis with septic shock; G93.1 Anoxic brain damage, not elsewhere classified; I13.2 Hypertensive heart and chronic kidney disease with heart failure and with stage 5 chronic kidney disease, or end stage renal disease; J10.08 Influenza due to other identified influenza virus with other specified pneumonia; D63.1 Anemia in chronic kidney disease; E87.1 Hypo-osmolality and hyponatremia; L89.159 Pressure ulcer of sacral region, unspecified stage; N18.6 End stage renal disease; I82.403 Acute embolism and thrombosis of unspecified deep veins of lower extremity, bilateral; M46.26 Osteomyelitis of vertebra, lumbar region; G40.909 Epilepsy, unspecified, not intractable, without status epilepticus; G89.29 Other chronic pain; G95.9 Disease of spinal cord, unspecified; I50.9 Heart failure, unspecified; J12.9 Viral pneumonia, unspecified; J15.212 Pneumonia due to Methicillin resistant Staphylococcus aureus; M46.24 Osteomyelitis of vertebra, thoracic region; M46.44 Discitis, unspecified, thoracic region; N39.0 Urinary tract infection, site not specified; I25.10 Atherosclerotic heart disease of native coronary artery without angina pectoris; Z20.822 Contact with and (suspected) exposure to COVID-19; E11.51 Type 2 diabetes mellitus with diabetic peripheral angiopathy without gangrene; E11.22 Type 2 diabetes mellitus with diabetic chronic kidney disease; E11.65 Type 2 diabetes mellitus with hyperglycemia; Z79.899 Other long term (current) drug therapy; Z82.49 Family history of ischemic heart disease and other diseases of the circulatory system; Z83.3 Family history of diabetes mellitus; Z86.14 Personal history of Methicillin resistant Staphylococcus aureus infection; Z89.512 Acquired absence of left leg below knee; Z99.2 Dependence on renal dialysis; Z99.81 Dependence on supplemental oxygen
CPT/HCPCS: 36415; 36558; 36600; 70450; 71045; 71250; 72133; 72146; 74176; 76604; 76937; 80053; 80202; 81001; 82306; 82565; 82805; 82962; 83605; 83690; 83735; 83880; 83970; 84100; 84443; 84478; 84484; 85007; 85025; 85027; 85379; 85610; 85730; 86850; 86900; 86901; 86920; 87040; 87070; 87077; 87081; 87147; 87186; 87205; 87340; 87426; 87804; 89051; 90935; 93306; 93970; 94002; 94003; 94640; 95819; 96365; 99152; 99291; C1769; C1894; C9113; G0378; G9035; J0330; J1642; J1815; J2001; J2543; J2704; J7060; J7131; P9047

== ENCOUNTER 2023-08-28 09:53 | Inpatient (IN) | payer MEDICAID ==
[~2023-08-28] VITALS: Ht 162.6 cm; Wt 73.6 kg
[2023-08-28] MEDS ORDERED: MORPHINE SULFATE INJ 2 MG/ml SYRG IV PRN (23:00)
[2023-08-28] MEDS ORDERED: NITROGLYCERIN 0.4 MG SL TAB SL PRN (23:00)
[2023-08-28] MEDS ORDERED: DEXTROSE (50%) 50ML SYRG IV PRN (23:15)
[2023-08-28 23:45] VITALS: BP 99/48; PULSE 100; PULSE 95; RESP 16; TEMP 97.8; O2SAT 97
[2023-08-29] VITALS (8 sets, daily range): BP systolic 108–142; BP diastolic 33–62; PULSE 89–96; RESP 17–24; TEMP 97.8–99; O2SAT 96–100
[2023-08-29] MEDS: MORPHINE SULFATE INJ 2 MG/ml SYRG IV PRN (04:54)
[2023-08-29] MEDS: ONDANSETRON HCL 4 MG/2 ML VIAL IV PRN (04:54)
[2023-08-29] MEDS: InsuLIN REG 1unit/0.01ml Soln (100units/ml) SC SCH (06:19)
[2023-08-29] MEDS: ACCU-CHEK COMFORT CURVE STRIP VI SCH (06:19)
[2023-08-29 07:18] LABS: Basophils # (auto) 0.1 10 ^3/uL (0-0.2); Basophils % (auto) 0.6 % (0.0-2.0); Eosinophils # (auto) 0.3 10 ^3/uL (0-0.8); Eosinophils % (auto) 1.8 % (0.0-7.0); Hematocrit 27.3 % (41.0-53.0); Hemoglobin 8.7 g/dL (13.5-17.5); Lymphocytes # (auto) 0.4 10 ^3/uL (0.4-5.4); Mean Corpuscular Hemoglobin 29.5 pg (28.0-32.0); Mean Corpuscular Hgb Conc. 31.9 g/dL (32.0-36.0); Mean Corpuscular Volume 92.6 fL (80.0-100.0); Neutrophils # (auto) 13.2 10 ^3/uL (1.6-8.6); Neutrophils % (auto) 87.6 % (37.0-80.0); Red Blood Cells 2.95 10^6/uL (4.5-5.90); Red Cell Distribution Width 16.5 % (11.8-14.3)
[2023-08-29 07:33] LABS: Alkaline Phosphatase 451 U/L (46-116); Anion Gap 9 (5-15); Blood Urea Nitrogen 24 mg/dL (9-23); Calcium 8.6 mg/dL (8.5-10.1); Carbon Dioxide 27 mmol/L (20-30); Chloride 102 mmol/L (98-107); Glucose 167 mg/dL (74-106); Potassium 3.6 mmol/L (3.5-5.1); Sodium 138 mmol/L (136-145)
[2023-08-29 07:34] LABS: Albumin 3.2 g/dL (3.2-4.8)
[2023-08-29 07:35] LABS: Aspartate Aminotransferase 22 U/L (13-40); Bilirubin, Total 0.4 mg/dL (0.2-1.0); Total Protein 7.3 g/dL (5.7-8.2)
[2023-08-29 07:52] LABS: Alanine Aminotransferase < 9 U/L (7-40)
[2023-08-29] MEDS: CARVEDILOL 3.125 MG TAB PO SCH (08:00)
[2023-08-29] MEDS: ZINC SULFATE 220mg CAP or TAB PO SCH (08:37)
[2023-08-29] MEDS: PANTOPRAZOLE 40 MG/10 ML VIAL INJ IV SCH (08:37)
[2023-08-29] MEDS: ATORVASTATIN 20 MG TAB PO SCH (08:37)
[2023-08-29] MEDS: FUROSEMIDE 40 MG TAB PO SCH (08:37)
[2023-08-29] MEDS: MULTIPLE VITAMIN TAB PO SCH (08:37)
[2023-08-29] MEDS: CLOPIDOGREL BISULFATE 75 MG TAB PO SCH (08:38)
[2023-08-29] MEDS: ASCORBIC ACID 500 MG TAB PO SCH (08:38)
[2023-08-29] MEDS: LEVOTHYROXINE SODIUM 50 MCG TAB PO SCH (08:38)
[2023-08-29] MEDS ORDERED: PATIENTS OWN MEDICATION (Carvedilol 1 TAB) PO SCH (10:00)
[2023-08-29] MEDS ORDERED: VANCOMYCIN PER PHARMACY 0 MG IV SCH (12:45)
[2023-08-29] MEDS: VANCOMYCIN 1GM/200ML 200 ML IV ONE (14:00)
[2023-08-29] MEDS: HEPARIN SODIUM (PORCINE) 5000 UNITS/ML 1ML VIAL SC SCH (14:17)
[2023-08-29 15:43] LABS: % Iron Saturation 13.1 % (20-55)
[2023-08-29] MEDS: SEVELAMER 800 MG TAB PO SCH (17:37)
[2023-08-29] MEDS: CEFTRIAXONE SODIUM 2 GM in D5W 5% 100 ML IV SCH (22:09)
[2023-08-29 23:06] LABS: Urine WBC None Seen /hpf (0 - 3)
[2023-08-29 23:19] LABS: Urine Bacteria NONE SEEN /hpf (None Seen); Urine Blood 2+ /uL (Negative); Urine Clarity CLOUDY (Clear); Urine Color Red (Yellow); Urine Protein, UAD 2+ (Negative); Urine Urobilinogen Normal (Negative); Urine pH 6.5 (5.0-8.0)
[2023-08-29 23:27] LABS: Urine Specific Gravity 1.015 (1.001-1.035)
[2023-08-29 23:29] LABS: Creatinine, Urine 7.27 mg/dL (30.0-125.0)
[2023-08-29 23:32] LABS: Protein, Urine 986.6 mg/dL (0.0-11.9); Urine Protein/Creatinine Ratio 135.71
[2023-08-30] VITALS (8 sets, daily range): BP systolic 96–145; BP diastolic 40–64; PULSE 84–94; RESP 16–20; TEMP 98.4–99.1; O2SAT 98–100
[2023-08-30] MEDS: HYDROcodone-ACET 5/325MG TAB PO PRN (10:19)
[2023-08-30 19:01] LABS: Hemoglobin 8.5 g/dL (13.5-17.5)
[2023-08-30 19:04] LABS: Hematocrit 27.7 % (41.0-53.0)
[2023-08-30] MEDS: EPOETIN ALFA-EPBX 10,000 UNIT/1ML VIAL SC ONE (21:07)
[2023-08-30] MEDS: VANCOMYCIN 1GM/200ML 200 ML IV ONE (23:02)
[2023-08-31] VITALS (9 sets, daily range): BP systolic 108–152; BP diastolic 21–60; PULSE 86–93; RESP 18–24; TEMP 98.3–99.3; O2SAT 92–100
[2023-08-31 05:40] LABS: Basophils # (auto) 0.1 10 ^3/uL (0-0.2); Eosinophils # (auto) 0.5 10 ^3/uL (0-0.8); Hemoglobin 8.6 g/dL (13.5-17.5); Monocytes # (auto) 1.6 10 ^3/uL (0-1.3); Monocytes % (auto) 9.5 % (0.0-12.0); White Blood Cell 16.5 10^3/uL (4.4-10.8)
[2023-08-31 05:41] LABS: Basophils % (auto) 0.8 % (0.0-2.0); Eosinophils % (auto) 2.8 % (0.0-7.0); Hematocrit 28.8 % (41.0-53.0); Lymphocytes # (auto) 0.7 10 ^3/uL (0.4-5.4); Lymphocytes % (auto) 4.1 % (10.0-50.0); Mean Corpuscular Hemoglobin 28.9 pg (28.0-32.0); Mean Corpuscular Volume 96.2 fL (80.0-100.0); Neutrophils # (auto) 13.7 10 ^3/uL (1.6-8.6); Neutrophils % (auto) 82.8 % (37.0-80.0); Nucleated Red Blood Cells % 0.1 %; Red Blood Cells 2.99 10^6/uL (4.5-5.90); Red Cell Distribution Width 16.8 % (11.8-14.3)
[2023-08-31 05:51] LABS: Anion Gap 10 (5-15); Carbon Dioxide 24 mmol/L (20-30); Chloride 104 mmol/L (98-107); Potassium 5.2 mmol/L (3.5-5.1); Sodium 138 mmol/L (136-145)
[2023-08-31 05:53] LABS: Calcium 8.4 mg/dL (8.7-10.4)
[2023-08-31 05:58] LABS: BUN/Creatinine Ratio 15.6 (10.0-20.0); Blood Urea Nitrogen 22 mg/dL (9-23); Glucose 96 mg/dL (74-106)
[2023-08-31] MEDS: ALBUTEROL SULF 2.5 MG/0.5ML(0.5%) NEB SOLN NEB PRN (19:44)
[2023-09-01] VITALS (15 sets, daily range): BP systolic 109–146; BP diastolic 37–72; PULSE 80–92; RESP 15–91; TEMP 97.4–99.2; O2SAT 20–99
[2023-09-01 06:51] LABS: Calcium 8.9 mg/dL (8.7-10.4)
[2023-09-01 06:56] LABS: BUN/Creatinine Ratio 13.2 (10.0-20.0)
[2023-09-02] VITALS (10 sets, daily range): BP systolic 108–152; BP diastolic 51–72; PULSE 73–78; RESP 17–24; TEMP 97.4–98.3; O2SAT 98–100
[2023-09-02 08:15] LABS: Calcium 9.3 mg/dL (8.5-10.1)
[2023-09-02 08:22] LABS: Phosphorus 6.1 mg/dL (2.4-5.1)
[2023-09-02] MEDS: APIXABAN 5 MG TAB PO SCH (21:00)
[2023-09-03] VITALS (9 sets, daily range): BP systolic 105–154; BP diastolic 28–65; PULSE 73–96; RESP 16–20; TEMP 97.5–98.8; O2SAT 91–100
[2023-09-03] MEDS: ALBUMIN 25% 100 ML IV SCH (08:54)
[2023-09-03] MEDS: SODIUM CHL 0.9% 1000 ML BAG XX ONE (08:54)
[2023-09-03] MEDS: cefTRIAXone 2GM/50ML D5W 50 ML IV SCH (23:00)
[2023-09-04] VITALS (14 sets, daily range): BP systolic 125–145; BP diastolic 37–67; PULSE 76–84; RESP 17–20; TEMP 97.7–98.4; O2SAT 96–100
[2023-09-04] MEDS: SODIUM CHL 0.9% 1000 ML BAG XX ONE (04:37)
[2023-09-04] MEDS: ALBUMIN 25% 100 ML IV ONE (04:37)
[2023-09-04] MEDS: guaiFENesin-DM 100/10mg/5ml SYR PO PRN (20:15)
[2023-09-05] VITALS (7 sets, daily range): BP systolic 146–159; BP diastolic 54–69; PULSE 72–79; RESP 17–20; TEMP 97.2–98.1; O2SAT 97–100
[2023-09-06] VITALS (15 sets, daily range): BP systolic 98–165; BP diastolic 52–71; PULSE 76–88; RESP 18–21; TEMP 97.3–98.4; O2SAT 92–100
[2023-09-06] MEDS ORDERED: SODIUM CHL 0.9% 1000 ML BAG XX ONE (06:45)
[2023-09-06 11:20] LABS: Basophils # (auto) 0.1 10 ^3/uL (0-0.2); Basophils % (auto) 0.6 % (0.0-2.0); Eosinophils # (auto) 0.5 10 ^3/uL (0-0.8); Eosinophils % (auto) 2.9 % (0.0-7.0); Hematocrit 28.5 % (41.0-53.0); Hemoglobin 8.9 g/dL (13.5-17.5); Lymphocytes # (auto) 0.5 10 ^3/uL (0.4-5.4); Lymphocytes % (auto) 3.3 % (10.0-50.0); Mean Corpuscular Hemoglobin 28.7 pg (28.0-32.0); Mean Corpuscular Hgb Conc. 31.1 g/dL (32.0-36.0); Mean Corpuscular Volume 92.2 fL (80.0-100.0); Monocytes # (auto) 1.3 10 ^3/uL (0-1.3); Monocytes % (auto) 8.2 % (0.0-12.0); Neutrophils # (auto) 13.6 10 ^3/uL (1.6-8.6); Red Blood Cells 3.09 10^6/uL (4.5-5.90); Red Cell Distribution Width 15.8 % (11.8-14.3)
[2023-09-06 11:29] LABS: Chloride 99 mmol/L (98-107); Potassium 4.8 mmol/L (3.5-5.1); Sodium 137 mmol/L (136-145)
[2023-09-06 11:30] LABS: Anion Gap 18 (5-15); Carbon Dioxide 20 mmol/L (20-30)
[2023-09-06 11:31] LABS: Calcium 9.6 mg/dL (8.5-10.1)
[2023-09-06 11:35] LABS: Glucose 61 mg/dL (74-106)
[2023-09-06 11:36] LABS: BUN/Creatinine Ratio 17.5 (10.0-20.0); Blood Urea Nitrogen 57 mg/dL (9-23)
[2023-09-06] MEDS: VANCOMYCIN 500 MG in D5W 5% 100 ML IV ONE (17:32)
[2023-09-07] VITALS (7 sets, daily range): BP systolic 145–161; BP diastolic 63–81; PULSE 78–83; RESP 16–19; TEMP 98.1–98.4; O2SAT 95–96
[2023-09-07] MEDS: ACETAMINOPHEN 325 MG TAB PO PRN (04:28)
[2023-09-07] MEDS: DOCUSATE SOD 100 MG CAP PO PRN (23:17)
[2023-09-08] VITALS (8 sets, daily range): BP systolic 145–153; BP diastolic 71–86; PULSE 71–81; RESP 16–20; TEMP 98–98.8; O2SAT 93–100
[2023-09-08] MEDS: FUROSEMIDE 40 MG/4 ML VIAL IV ONE (09:35)
[2023-09-08] MEDS: FUROSEMIDE 40 MG/4 ML VIAL IV SCH (17:07)
[2023-09-09 05:00] VITALS: BP 122/56; PULSE 94; RESP 20; TEMP 98; O2SAT 94
[2023-09-09 06:57] LABS: Calcium 9.4 mg/dL (8.7-10.4)
[2023-09-09 07:02] LABS: BUN/Creatinine Ratio 14.5 (10.0-20.0)
[2023-09-09 07:03] LABS: Albumin 3.1 g/dL (3.2-4.8)
[2023-09-09 07:04] LABS: Phosphorus 5.6 mg/dL (2.4-5.1)
[2023-09-09 08:31] VITALS: BP 123/58; PULSE 89; RESP 16; TEMP 97.9; O2SAT 94
[2023-09-09 13:02] VITALS: BP 145/82; PULSE 89; RESP 16; TEMP 98; O2SAT 96
[2023-09-09 17:00] VITALS: BP 140/66; PULSE 84; RESP 16; TEMP 98.7; O2SAT 96
[2023-09-09] MEDS ORDERED: VANCOMYCIN 500 MG in D5W 5% 100 ML IV ONE (17:00)
[2023-09-09] MEDS: CARVEDILOL 3.125 MG TAB GT SCH (17:23)
[2023-09-09] MEDS: ALBUMIN 25% 100 ML IV ONE (17:45)
[2023-09-09] MEDS ORDERED: ALBUMIN 25% 100 ML IV PRN (18:15)
[2023-09-09] MEDS ORDERED: NOREPINEPHRINE 8 MG/250ML KIT 250 ML IV ONE (20:44)
[2023-09-09] MEDS ORDERED: fentaNYL Drip 2500mCg/250mlNS 250 ML IV ONE (20:44)
[2023-09-09] MEDS ORDERED: NOREPINEPHRINE 8 MG/250ML KIT 250 ML IV SCH (20:45)
[2023-09-09] MEDS ORDERED: MIDAZOLAM DRIP 50 mg/50mL 50 ML IV ONE (20:47)
[2023-09-09] MEDS ORDERED: AMIODARONE BOLUS KIT 100 ML IV ONE (21:00)
[2023-09-09] MEDS ORDERED: AMIODARONE 450mg/250ml AE 250 ML IV SCH (21:00)
[2023-09-09] MEDS ORDERED: PROPOFOL 100 ML IV SCH (21:00)
[2023-09-09] MEDS ORDERED: APIXABAN 5 MG TAB GT SCH (22:00)
[2023-09-10] MEDS ORDERED: AMIODARONE 450mg/250ml AE 250 ML IV SCH (03:00)
[2023-09-10] MEDS ORDERED: MULTIPLE VITAMIN TAB GT SCH (10:00)
[2023-09-10] MEDS ORDERED: CLOPIDOGREL BISULFATE 75 MG TAB GT SCH (10:00)
[2023-09-10] MEDS ORDERED: LEVOTHYROXINE SODIUM 50 MCG TAB GT SCH (10:00)
[2023-09-10] MEDS ORDERED: ATORVASTATIN 20 MG TAB GT SCH (10:00)
== END 2023-09-09 21:08 | DRG 720 ==
LOC: EAST 23:03 → TELE-EAST 09-04 03:46 → EAST 09-06 11:46
PROVIDERS: ADMIT Nurse Practitioner; ATTEND Nurse Practitioner
PROC: 5A1D70Z Performance of Urinary Filtration, Intermittent, Less than 6 Hours Per Day (ICD-10-PCS; principal; 2023-08-30)
PROC: 5A1D70Z Performance of Urinary Filtration, Intermittent, Less than 6 Hours Per Day (ICD-10-PCS; 2023-09-03)
PROC: 5A1D70Z Performance of Urinary Filtration, Intermittent, Less than 6 Hours Per Day (ICD-10-PCS; 2023-09-06)
PROC: 5A1D70Z Performance of Urinary Filtration, Intermittent, Less than 6 Hours Per Day (ICD-10-PCS; 2023-09-09)
PROC: 5A12012 Performance of Cardiac Output, Single, Manual (ICD-10-PCS; 2023-09-09)
DX: A41.59 Other Gram-negative sepsis (principal); J96.01 Acute respiratory failure with hypoxia; J86.9 Pyothorax without fistula; R65.21 Severe sepsis with septic shock; L89.150 Pressure ulcer of sacral region, unstageable; N17.9 Acute kidney failure, unspecified; J10.08 Influenza due to other identified influenza virus with other specified pneumonia; J15.0 Pneumonia due to Klebsiella pneumoniae; L89.890 Pressure ulcer of other site, unstageable; D63.1 Anemia in chronic kidney disease; A41.02 Sepsis due to Methicillin resistant Staphylococcus aureus; A41.89 Other specified sepsis; E78.00 Pure hypercholesterolemia, unspecified; I25.10 Atherosclerotic heart disease of native coronary artery without angina pectoris; M46.24 Osteomyelitis of vertebra, thoracic region; J10.1 Influenza due to other identified influenza virus with other respiratory manifestations; I82.411 Acute embolism and thrombosis of right femoral vein; N18.6 End stage renal disease; J98.11 Atelectasis; I46.9 Cardiac arrest, cause unspecified; G82.20 Paraplegia, unspecified; E11.69 Type 2 diabetes mellitus with other specified complication; M46.26 Osteomyelitis of vertebra, lumbar region; L97.529 Non-pressure chronic ulcer of other part of left foot with unspecified severity; E11.621 Type 2 diabetes mellitus with foot ulcer; E11.22 Type 2 diabetes mellitus with diabetic chronic kidney disease; E11.51 Type 2 diabetes mellitus with diabetic peripheral angiopathy without gangrene; M46.44 Discitis, unspecified, thoracic region; Z74.01 Bed confinement status; Z93.0 Tracheostomy status; Z99.81 Dependence on supplemental oxygen; Z93.3 Colostomy status; Z89.512 Acquired absence of left leg below knee; Z79.4 Long term (current) use of insulin; Z95.828 Presence of other vascular implants and grafts; Z98.1 Arthrodesis status; Z99.2 Dependence on renal dialysis; Z83.3 Family history of diabetes mellitus; Z82.49 Family history of ischemic heart disease and other diseases of the circulatory system
CPT/HCPCS: 31720; 36415; 76775; 80048; 80053; 80069; 80202; 81001; 82306; 82565; 82570; 82728; 82962; 83540; 83550; 83970; 84100; 84156; 84300; 84550; 85014; 85018; 85025; 87040; 87081; 87340; 90935; 94640; 97110; 97163; 97530; A4605; G0378; J0696; J1642; J1815; J2250; J2405; J2704; J7060; P9047